=== PATIENT | female | born 1945 | race Caucasian/White ===

== ENCOUNTER 2019-12-12 07:17 | Outpatient (CLI) | payer MEDICARE, SELFPAY ==
[2019-12-12 07:49] LABS: Add Urine Microscopic? NO; Appearance Urine Clear (Clear); Bilirubin Urine Negative (Negative); Blood Urine Negative (Negative); Color Urine Yellow (Yellow); Glucose Urine UA Negative (Negative); Ketones Urine Negative (Negative); Leukocyte Esterase Ur Negative (Negative); Nitrate Urine Negative (Negative); Protein Urine Negative (Negative); Specific Grav Ur 1.025 (1.010-1.020); Urobilinogen Urine 0.2 mg/dL (0.2-1.0); pH Urine 5.5 (5.0-8.0)
[2019-12-12 08:17] LABS: Hemoglobin A1C 6.3 % (<5.7)
[2019-12-12 08:55] LABS: Alanine Aminotransferase 38 U/L (14-59); Albumin Level 3.9 g/dL (3.4-5.0); Alkaline Phosphatase 62 U/L (46-116); Anion Gap 12.6 mmol/L (7-16); Aspartate Amino Transferase 19 U/L (15-37); Bilirubin,Total 0.2 mg/dL (0.00-1.00); Blood Urea Nitrogen 13 mg/dL (7-18); Calcium 9.2 mg/dL (8.5-10.1); Carbon Dioxide 29 mmol/L (21-32); Chloride 102 mmol/L (98-108); Cholesterol 171 mg/dL (0-200); Creatine Kinase 65 U/L (26-192); Estimated Glomerular Filt Rate 52; Glucose 111 mg/dL (70-99); HDL Direct 54 mg/dL (40-60); LDL Cholesterol Calculated 92 mg/dL (<130); Osmolality Calculated 289 mOsm/kg (285-295); Potassium 4.6 mmol/L (3.5-5.1); Sodium 139 mmol/L (136-145); Total Protein 6.9 g/dL (6.4-8.2); Triglycerides 123 mg/dL (0-150)
== END 2019-12-12 07:18 | disposition home or self-care (01) ==
PROVIDERS: PCP Internal Medicine; Visit Provider Internal Medicine
DX: R73.01 Impaired fasting glucose (principal); E78.2 Mixed hyperlipidemia
CPT/HCPCS: 36415; 80053; 80061; 81003; 82550; 83036

== ENCOUNTER 2020-01-10 12:35 | Outpatient (CLI) | payer MEDICARE, SELFPAY ==
--- NOTE | ~2020-01-10 | MM_ITS ---
EXAMINATION: MM screening ruchi BI w jax HISTORY: Screening mammogram TECHNIQUE: Craniocaudal and mediolateral oblique 3-D tomosynthesis images were obtained and synthetic 2-D images were generated. CAD analysis was submitted and interpreted. COMPARISON: 07/28/2018, 04/13/2017, 04/01/2016 bilateral digital screening mammogram examinations BREAST PARENCHYMAL COMPOSITION: The breasts are heterogeneously dense, which may obscure small masses . FINDINGS: There is an approximately 8 mm asymmetric opacity in the lower outer left breast; diagnosti c left mammogram and left breast ultrasound examination are recommended. Otherwise there is no evidence of suspicious mass, calcification, or architectural distortion to sugg est malignancy in either breast. There has been no other suspicious interval change. Occasional benig n calcifications. IMPRESSION: 1. Lower outer quadrant left breast mammographic asymmetry 2. Diagnostic left mammogram and left breast ultrasound examination are recommended. BI-RADS Category 0: Incomplete: Needs additional imaging evaluation. Reviewed, dictated and finalized at location A. IMPRESSION: 1. Lower outer quadrant left breast mammographic asymmetry 2. Diagnostic left mammogram and left breast ultrasound examination are recomme nded. BI-RADS Category 0: Incomplete: Needs additional imaging evaluation.
== END 2020-01-10 12:36 | disposition home or self-care (01) ==
LOC: CHSIMG 12:36
PROVIDERS: PCP Internal Medicine; Visit Provider Internal Medicine
DX: Z12.31 Encounter for screening mammogram for malignant neoplasm of breast (principal)
CPT/HCPCS: 77063; 77067

== ENCOUNTER 2020-01-17 08:43 | Outpatient (CLI) | payer MEDICARE, SELFPAY ==
--- NOTE | ~2020-01-17 | MMUS_ITS ---
EXAMINATION: MM diagnostic ruchi LT w jax, US breast LT complete HISTORY: Follow-up possible left breast mass TECHNIQUE: Additional 3-D tomosynthesis images of the left breast were performed and synthetic 2-D im ages were generated. CAD analysis was submitted and interpreted. High resolution left breast ultrasou nd was performed. COMPARISON: Comparison to multiple prior studies sequentially, with oldest reviewed study dated 03/12. BREAST PARENCHYMAL COMPOSITION: The breasts are heterogenously dense, which may obscure small masses FINDINGS: MAMMOGRAPHIC FINDINGS: There is a cluster of coarse calcifications in the lower inner quadrant of the left breast. There are no suspicious masses, architectural distortions or clustered calcifications to suggest malignancy. ULTRASOUND: Left breast ultrasound: There are echogenic foci at 7:00, 4 cm from the nipple with dense posterior shadowing, corresponding to the calcifications seen on mammography. At 8:00, 3 cm from the nipple, there is a cluster of cysts , largest measuring 5 mm maximum dimension. At 9:00, 3 cm from the nipple, there is a small hypoechoi c mass measuring 3 mm, likely a complicated cyst. No other masses identified. IMPRESSION: 1. Probable benign findings of the left breast. 2. Recommend 6 month follow-up left breast ultrasound. BI-RADS category 3, probably benign findings. Reviewed, dictated and finalized at location A. IMPRESSION: 1. Probable benign findings of the left breast. 2. Recommend 6 month follow-up left breast ultrasound. BI-RADS category 3, probably benign findings.
== END 2020-01-17 08:44 | disposition home or self-care (01) ==
LOC: CHSIMG 08:45
PROVIDERS: PCP Internal Medicine; Visit Provider Internal Medicine
DX: R92.8 Other abnormal and inconclusive findings on diagnostic imaging of breast (principal)
CPT/HCPCS: 76641; 77061; 77065; G0279

== ENCOUNTER 2020-06-26 08:27 | Outpatient (CLI) | payer MEDICARE, SELFPAY ==
[2020-06-26 08:40] LABS: Add Urine Microscopic? YES; Appearance Urine Cloudy (Clear); Bilirubin Urine Negative (Negative); Blood Urine Negative (Negative); Color Urine Yellow (Yellow); Glucose Urine UA Negative (Negative); Ketones Urine Negative (Negative); Leukocyte Esterase Ur Negative (Negative); Nitrate Urine Negative (Negative); Protein Urine Negative (Negative); Specific Grav Ur 1.025 (1.010-1.020); Urobilinogen Urine 0.2 mg/dL (0.2-1.0); pH Urine 5.5 (5.0-8.0)
[2020-06-26 08:53] LABS: Bacteria Urine Trace /hpf; RBC Urine 0-2 /hpf (0-2); Squamous Epithelial Cell Urine Many /hpf (Few); WBC Urine 0-3 /hpf (0-3)
[2020-06-26 08:55] LABS: Hemoglobin A1C 6.3 % (<5.7)
[2020-06-26 09:45] LABS: Alanine Aminotransferase 38 U/L (14-59); Albumin Level 4.1 g/dL (3.4-5.0); Alkaline Phosphatase 73 U/L (46-116); Anion Gap 7 mmol/L (8-16); Aspartate Amino Transferase 17 U/L (15-37); Bilirubin,Total 0.3 mg/dL (0.00-1.00); Blood Urea Nitrogen 14 mg/dL (7-18); Calcium 9.3 mg/dL (8.5-10.1); Carbon Dioxide 29 mmol/L (21-32); Chloride 102 mmol/L (98-108); Cholesterol 189 mg/dL (0-200); Creatine Kinase 88 U/L (26-192); Estimated Glomerular Filt Rate 47; Glucose 125 mg/dL (70-99); HDL Direct 61 mg/dL (40-60); LDL Cholesterol Calculated 92 mg/dL (<130); Osmolality Calculated 287 mOsm/kg (285-295); Potassium 4.4 mmol/L (3.5-5.1); Sodium 138 mmol/L (136-145); Total Protein 7.3 g/dL (6.4-8.2); Triglycerides 179 mg/dL (0-150)
[2020-06-28 11:53] LABS: Vitamin D 25 Hydroxy 33 ng/mL (30-100)
== END 2020-06-26 08:28 | disposition home or self-care (01) ==
LOC: CHSLAB 08:28
PROVIDERS: PCP Internal Medicine; Visit Provider Internal Medicine
DX: R73.01 Impaired fasting glucose (principal); I10 Essential (primary) hypertension; E78.2 Mixed hyperlipidemia; M81.0 Age-related osteoporosis without current pathological fracture
CPT/HCPCS: 36415; 80053; 80061; 81001; 82306; 82550; 83036

== ENCOUNTER 2020-07-19 08:35 | Outpatient (CLI) | payer MEDICARE, SELFPAY ==
--- NOTE | ~2020-07-19 | US_ITS ---
EXAMINATION: US breast LT limited HISTORY: Six-month follow-up for probably benign left breast masses TECHNIQUE: Limited left breast ultrasound was performed. COMPARISON: 01/17/2020 FINDINGS: There is a stable 2 mm hypoechoic mass at the 9:00 location 3 cm from the nipple. Hypoechoi c masses at the 8:00 location 3 cm from the nipple are stable to decreased in size. Again noted is a calcification at the 7:00 location 4 cm from the nipple. Adjacent hypoechoic parallel masses at the 7 :00 location 2 cm from the nipple measure up to 4 mm. None demonstrate additional suspicious sonograp hic features. IMPRESSION: Probably benign left breast masses. Follow-up left breast ultrasound six months is recommended. BI-RADS category 3, probably benign findings. Reviewed, dictated and finalized at location A. RENCE INVESTIGATOR
== END 2020-07-19 08:36 | disposition home or self-care (01) ==
LOC: CHSIMG 08:37
PROVIDERS: PCP Internal Medicine; Visit Provider Internal Medicine
DX: R92.8 Other abnormal and inconclusive findings on diagnostic imaging of breast (principal); N63.20 Unspecified lump in the left breast, unspecified quadrant
CPT/HCPCS: 76642

== ENCOUNTER 2021-01-17 08:17 | Outpatient (CLI) | payer MEDICARE, SELFPAY ==
[2021-01-17 08:33] LABS: Add Urine Microscopic? NO; Appearance Urine Clear (Clear); Bilirubin Urine Negative (Negative); Blood Urine Negative (Negative); Color Urine Yellow (Yellow); Glucose Urine UA Negative (Negative); Ketones Urine Negative (Negative); Leukocyte Esterase Ur Negative (Negative); Nitrate Urine Negative (Negative); Protein Urine Negative (Negative); Specific Grav Ur 1.025 (1.010-1.020); Urobilinogen Urine 0.2 mg/dL (0.2-1.0)
[2021-01-17 08:43] LABS: Hemoglobin A1C 6.5 % (<5.7)
[2021-01-17 09:06] LABS: Alanine Aminotransferase 36 U/L (14-59); Albumin Level 3.8 g/dL (3.4-5.0); Alkaline Phosphatase 73 U/L (46-116); Anion Gap 11 mmol/L (8-16); Aspartate Amino Transferase 15 U/L (15-37); Bilirubin,Total 0.2 mg/dL (0.00-1.00); Blood Urea Nitrogen 11 mg/dL (7-18); Calcium 9.1 mg/dL (8.5-10.1); Carbon Dioxide 27 mmol/L (21-32); Chloride 104 mmol/L (98-108); Estimated Glomerular Filt Rate 56; Glucose 112 mg/dL (70-99); Osmolality Calculated 294 mOsm/kg (285-295); Potassium 4.5 mmol/L (3.5-5.1); Sodium 142 mmol/L (136-145)
== END 2021-01-17 08:18 | disposition home or self-care (01) ==
LOC: CHSLAB 08:18
PROVIDERS: PCP Internal Medicine; Visit Provider Internal Medicine
DX: E11.9 Type 2 diabetes mellitus without complications (principal)
CPT/HCPCS: 36415; 80053; 81003; 83036

== ENCOUNTER 2021-02-06 13:22 | Outpatient (CLI) | payer MEDICARE, SELFPAY ==
[2021-02-06 15:23] LABS: SARS-CoV-2 RNA PCR Negative (Negative)
== END 2021-02-06 13:23 | disposition home or self-care (01) ==
LOC: CHSLAB 13:24
PROVIDERS: PCP Internal Medicine; Visit Provider Internal Medicine
DX: J06.9 Acute upper respiratory infection, unspecified (principal); Z20.822 Contact with and (suspected) exposure to COVID-19
CPT/HCPCS: C9803; U0003; U0005

== ENCOUNTER 2021-06-05 12:17 | Outpatient (CLI) | payer MEDICARE, SELFPAY ==
[2021-06-05 13:09] LABS: Basophils Absolute Auto 0.02 K/mm3 (0.00-0.10); Basophils Percent Auto 0.3 % (0.0-1.0); Eosinophils Absolute Auto 0.18 K/mm3 (0.02-0.50); Eosinophils Percent Auto 2.3 % (1.0-6.0); Hematocrit 42.2 % (35.0-42.0); Hemoglobin 13.6 g/dL (11.7-13.8); Immature Granulocyte Absolute 0.04 K/mm3 (0.00-0.00); Immature Granulocyte Percent A 0.5 % (0.0-0.0); Lymphocytes Absolute Auto 2.07 K/mm3 (1.10-4.50); Lymphocytes Percent Auto 25.9 % (18.0-42.0); Mean Corpuscular HGB Conc 32.2 g/dL (32.0-36.0); Mean Corpuscular Hemoglobin 31.4 pg (27.0-31.0); Mean Corpuscular Volume 97.5 fL (78.0-102.0); Mean Platelet Volume 9.6 fl (9.2-11.8); Monocytes Percent Auto 8.8 % (2.0-11.0); Neutrophils Percent Auto 62.2 % (50.0-70.0); Platelet Count Result 255 K/mm3 (150-420); Red Blood Count 4.33 M/mm3 (4.20-5.40); Red Cell Distribution Width 13.2 % (11.6-14.4)
[2021-06-05 13:45] LABS: Influenza A QL RT-PCR Negative (Negative); Influenza B QL RT-PCR Negative (Negative); SARS-CoV-2 RNA PCR Positive (Negative)
[2021-06-05 13:53] LABS: Rheumatoid Factor Screen Negative (Negative)
== END 2021-06-05 12:18 | disposition home or self-care (01) ==
LOC: CHSLAB 12:19
PROVIDERS: PCP Internal Medicine; Visit Provider Internal Medicine
DX: U07.1 COVID-19 (principal)
CPT/HCPCS: 36415; 85025; 86430; 87502; C9803; U0003; U0005

== ENCOUNTER 2021-09-02 09:26 | Outpatient (CLI) | payer MEDICARE, SELFPAY ==
[2021-09-02 09:38] LABS: Hematocrit 44.7 % (35.0-42.0); Hemoglobin 14.5 g/dL (11.7-13.8); Mean Corpuscular HGB Conc 32.4 g/dL (32.0-36.0); Mean Corpuscular Hemoglobin 31.5 pg (27.0-31.0); Mean Corpuscular Volume 97.2 fL (78.0-102.0); Mean Platelet Volume 9.4 fl (9.2-11.8); Platelet Count Result 335 K/mm3 (150-420); Red Cell Distribution Width 13.1 % (11.6-14.4); White Blood Count 7.9 K/mm3 (4.8-10.8)
[2021-09-02 09:48] LABS: Add Urine Microscopic? NO; Appearance Urine Clear (Clear); Bilirubin Urine Negative (Negative); Blood Urine Negative (Negative); Color Urine Yellow (Yellow); Glucose Urine UA Negative (Negative); Ketones Urine Negative (Negative); Leukocyte Esterase Ur Negative LEU/UL (Negative); Nitrate Urine Negative (Negative); Protein Urine Negative (Negative); Specific Grav Ur 1.025 (1.010-1.020); Urobilinogen Urine 0.2 mg/dL (0.2-1.0)
[2021-09-02 09:49] LABS: Hemoglobin A1C 6.3 % (<5.7)
[2021-09-02 09:59] LABS: Band Neutrophils Percent 0 % (0-6); Eosinophils Absolute Manual 0.47 K/mm3 (0.02-0.5); Eosinophils Percent Manual 6 % (1-6); Lymphocytes Absolute Manual 2.44 K/mm3 (1.1-4.5); Lymphocytes Percent Manual 31 % (18-44); Monocytes Absolute Manual 0.86 K/mm3 (0.1-0.90); Monocytes Percent Manual 11 % (3-9); Myelocytes Percent 1 %; Neutrophils Absolute Manual 4.02 K/mm3 (1.7-7.2); Neutrophils Percent Manual 51 % (46-73); Platelet Estimate Adequate (Adequate); Total Cells Counted 100
[2021-09-02 10:21] LABS: Alanine Aminotransferase 49 U/L (14-59); Albumin Level 4.1 g/dL (3.4-5.0); Alkaline Phosphatase 74 U/L (46-116); Anion Gap 8 mmol/L (8-16); Aspartate Amino Transferase 23 U/L (15-37); Bilirubin,Total 0.3 mg/dL (0.00-1.00); Blood Urea Nitrogen 12 mg/dL (7-18); Calcium 9.6 mg/dL (8.5-10.1); Carbon Dioxide 30 mmol/L (21-32); Chloride 101 mmol/L (98-108); Cholesterol 195 mg/dL (0-200); Creatine Kinase 53 U/L (26-192); Estimated Glomerular Filt Rate 55; Glucose 145 mg/dL (70-99); HDL Direct 54 mg/dL (40-60); LDL Cholesterol Calculated 93 mg/dL (<130); Osmolality Calculated 290 mOsm/kg (285-295); Potassium 4.5 mmol/L (3.5-5.1); Sodium 139 mmol/L (136-145); Total Protein 7.2 g/dL (6.4-8.2); Triglycerides 240 mg/dL (0-150)
== END 2021-09-02 09:27 | disposition home or self-care (01) ==
LOC: CHSLAB 09:29
PROVIDERS: PCP Internal Medicine; Visit Provider Internal Medicine
DX: E78.2 Mixed hyperlipidemia (principal); E11.9 Type 2 diabetes mellitus without complications
CPT/HCPCS: 36415; 80053; 80061; 81003; 82550; 83036; 85025

== ENCOUNTER 2021-11-27 12:25 | Outpatient (CLI) | payer MEDICARE, SELFPAY ==
--- NOTE | ~2021-11-27 | DEXA_ITS ---
Bone Density Report Name: MICHEL ELLIOTT Age: 75 Sex: Female Ethnicity: White Date of : 1945 Indication: postmenopausal; screening for osteoporosis; height loss; Referring Provider: Godwin Ku Study: Bone densitometry was performed. Exam Date: November 27, 2021 Accession number: [id number] Bone Density: Region BMD T-score Z-score Classification AP Spine(L1-L4) 1.374 3.0 5.3 Normal Femoral Neck (Left) 0.697 -1.4 0.6 Osteopenia Total Hip (Left) 0.955 0.1 1.8 Normal Femoral Neck (Right) 0.806 -0.4 1.6 Normal Total Hip (Right) 1.013 0.6 2.3 Normal Femoral Neck Mean 0.751 -0.9 1.1 Normal Total Hip Mean 0.984 0.3 2.1 Normal World Health Organization criteria for BMD impression classify patients as: Normal (T-score at or above -1.0), Osteopenia (T-score between -1.0 and -2.5), or Osteoporosis (T-score at or below -2.5). 10-year Fracture Risk(1): Major Osteoporotic Fracture 10.0% Hip Fracture 1.6% Reported Risk Factors: [place] (), Neck BMD=0.697, BMI=31.1 (1) FRAX(R) Version 3.08. Fracture probability calculated for an untreated patient. Fracture probability may be lower if the patient has received treatment. Clinical Information Provided by Patient: Patient maximum height was 64 No regular weight bearing exercise Drinks caffeinated beverages Onset of menses at age 12 Number of children 3 Impression: The patient has low bone mass, based on the Left Femoral Neck T-score. Discussion: BONE DENSITY IS LOW AT ONE OR MORE SKELETAL SITES. This patient's lowest T-score is low at one or more skeletal sites. It meets the World Health Organization's (WHO) criteria for ?low bone mass? (T-score between -1.0 and -2.5). The patient's 10-year risk of fracture as calculated by FRAX is less than the threshold where pharmacological therapy is recommended by the National Osteoporosis Foundation (NOF). However, all treatment decisions require clinical judgment and consideration of individual patient factors, including patient preferences, comorbidities, previous drug use, risk factors not captured in the FRAX model (e.g., frailty, falls, vitamin D deficiency, increased bone turnover, interval significant decline in bone density) and possible under or overestimation of fracture risk by FRAX. The patient should follow a healthful lifestyle (good nutrition with adequate calcium and vitamin D, and appropriate weight-bearing exercise). Follow-Up: Consider repeating this study in 2 to 3 years to reassess this patient's status, or sooner if there is some new clinical indication. Reported by: Dr. Ish Lombardo on 11/27/2021 12:47:00 PM. Reviewed, dictated and finalized at location AJanet FOWLER
== END 2021-11-27 12:26 | disposition home or self-care (01) ==
LOC: CHSIMG 12:27
PROVIDERS: PCP Internal Medicine; Visit Provider Internal Medicine
DX: M81.0 Age-related osteoporosis without current pathological fracture (principal)
CPT/HCPCS: 77080

== ENCOUNTER 2022-02-05 09:43 | Outpatient (CLI) | payer MEDICARE, SELFPAY ==
--- NOTE | ~2022-02-05 | MM_ITS ---
EXAMINATION: MM screening ruchi BI w jax HISTORY: Screening TECHNIQUE: Craniocaudal and mediolateral oblique 3-D tomosynthesis images were obtained and synthetic 2-D images were generated. CAD analysis was submitted and interpreted. COMPARISON: Comparison to multiple prior studies sequentially, with oldest reviewed study dated 03/17. BREAST PARENCHYMAL COMPOSITION: The breasts are heterogeneously dense, which may obscure small masses FINDINGS: There are developing clusters of indeterminate calcifications in the upper inner quadrant o f the right breast and lower outer quadrant of the left breast. There are no new masses or architectu ral distortion. IMPRESSION: 1. Developing clustered indeterminate bilateral breast calcifications. 2. Magnification views are recommended. BI-RADS Category 0: Incomplete: Needs additional imaging evaluation. Reviewed, dictated and finalized at location A.
== END 2022-02-05 09:44 | disposition home or self-care (01) ==
LOC: CHSIMG 09:45
PROVIDERS: PCP Internal Medicine; Visit Provider Internal Medicine
DX: Z12.31 Encounter for screening mammogram for malignant neoplasm of breast (principal)
CPT/HCPCS: 77063; 77067

== ENCOUNTER 2022-02-13 09:01 | Outpatient (CLI) | payer MEDICARE, SELFPAY ==
--- NOTE | ~2022-02-13 | MM_ITS ---
EXAMINATION: MM diagnostic ruchi BI w jax HISTORY: Bilateral breast calcifications on screening mammogram TECHNIQUE: Additional views of the breasts were performed. CAD analysis was submitted and interprete d. COMPARISON: 02/05/2022, 01/17/2020, 01/10/2020 FINDINGS: Left breast: There are grouped calcifications in the posterior third of the outer breast at the 3:00 location approximately 8 cm from the nipple which appear to be round in morphology. Right breast: There are grouped lucent centered calcifications of the right breast, consistent with b enign finding. IMPRESSION: 1. Probably benign left breast calcifications. 2. Recommend 6 month follow-up left diagnostic mammogram. BI-RADS category 3, probably benign findings. Reviewed, dictated and finalized at location A.
== END 2022-02-13 09:02 | disposition home or self-care (01) ==
LOC: CHSIMG 09:02
PROVIDERS: PCP Internal Medicine; Visit Provider Internal Medicine
DX: R92.8 Other abnormal and inconclusive findings on diagnostic imaging of breast (principal)
CPT/HCPCS: 77062; 77066; G0279

== ENCOUNTER 2022-04-16 09:07 | Outpatient (CLI) | payer MEDICARE, SELFPAY ==
[2022-04-16 09:20] LABS: Appearance Urine Clear (Clear); Basophils Absolute Auto 0.04 K/mm3 (0.00-0.10); Basophils Percent Auto 0.5 % (0.0-1.0); Bilirubin Urine Negative (Negative); Blood Urine Negative (Negative); Eosinophils Absolute Auto 0.69 K/mm3 (0.02-0.50); Eosinophils Percent Auto 7.9 % (1.0-6.0); Glucose Urine UA Negative (Negative); Hematocrit 42.6 % (35.0-42.0); Hemoglobin 13.6 g/dL (11.7-13.8); Immature Granulocyte Absolute 0.04 K/mm3 (0.00-0.00); Immature Granulocyte Percent A 0.5 % (0.0-0.0); Ketones Urine Negative (Negative); Leukocyte Esterase Ur Negative LEU/UL (Negative); Lymphocytes Absolute Auto 2.65 K/mm3 (1.10-4.50); Lymphocytes Percent Auto 30.3 % (18.0-42.0); Mean Corpuscular HGB Conc 31.9 g/dL (32.0-36.0); Mean Corpuscular Hemoglobin 30.8 pg (27.0-31.0); Mean Corpuscular Volume 96.4 fL (78.0-102.0); Mean Platelet Volume 9.1 fl (9.2-11.8); Monocytes Absolute Auto 0.63 K/mm3 (0.10-0.90); Monocytes Percent Auto 7.2 % (2.0-11.0); Neutrophils Absolute Auto 4.7 K/mm3 (1.7-7.2); Neutrophils Percent Auto 53.6 % (50.0-70.0); Nitrate Urine Negative (Negative); Platelet Count Result 345 K/mm3 (150-420); Protein Urine Negative (Negative); Red Blood Count 4.42 M/mm3 (4.20-5.40); Red Cell Distribution Width 12.3 % (11.6-14.4); Specific Grav Ur 1.015 (1.010-1.020); Urobilinogen Urine 0.2 mg/dL (0.2-1.0); White Blood Count 8.8 K/mm3 (4.8-10.8)
[2022-04-16 09:24] LABS: Add Urine Microscopic? NO; Color Urine Light Yellow (Yellow)
[2022-04-16 09:37] LABS: Hemoglobin A1C 6.3 % (<5.7)
[2022-04-16 09:59] LABS: Alanine Aminotransferase 32 U/L (14-59); Albumin Level 3.9 g/dL (3.4-5.0); Alkaline Phosphatase 75 U/L (46-116); Anion Gap 4 mmol/L (8-16); Aspartate Amino Transferase 15 U/L (15-37); Bilirubin,Total 0.2 mg/dL (0.00-1.00); Blood Urea Nitrogen 15 mg/dL (7-18); Calcium 9.4 mg/dL (8.5-10.1); Carbon Dioxide 32 mmol/L (21-32); Chloride 105 mmol/L (98-108); Cholesterol 207 mg/dL (0-200); Creatine Kinase 48 U/L (26-192); Estimated Glomerular Filt Rate 46; Glucose 129 mg/dL (70-99); HDL Direct 47 mg/dL (40-60); LDL Cholesterol Calculated 104 mg/dL (<130); Osmolality Calculated 294 mOsm/kg (285-295); Potassium 4.6 mmol/L (3.5-5.1); Sodium 141 mmol/L (136-145); Total Protein 7.1 g/dL (6.4-8.2); Triglycerides 281 mg/dL (0-150)
== END 2022-04-16 09:08 | disposition home or self-care (01) ==
LOC: CHSLAB 09:09
PROVIDERS: PCP Internal Medicine; Visit Provider Internal Medicine
DX: E78.2 Mixed hyperlipidemia (principal); E11.9 Type 2 diabetes mellitus without complications; N39.0 Urinary tract infection, site not specified
CPT/HCPCS: 36415; 80053; 80061; 81003; 82550; 83036; 85025

== ENCOUNTER 2022-04-28 15:32 | Outpatient (CLI) | payer MEDICARE, SELFPAY ==
--- NOTE | ~2022-04-28 | XR_ITS ---
XR chest 2V DATE: 04/28/2022 15:54 INDICATION: Substernal chest pain for over 10 months TECHNIQUE: PA and lateral views COMPARISON: 10/06/2016 two-view chest FINDINGS: Normal heart size. No hilar or mediastinal enlargement. No pulmonary infiltrate or consolid ation, pleural effusion or pulmonary vascular congestion or pneumothorax is detected. Prominent osteoarthritic change at the glenohumeral joints. Minimal dextro scoliosis of the thoracic spine. IMPRESSION: No active cardiopulmonary disease Reviewed, dictated and finalized at location A. OMER ENGAGEMENT REPRESENTATIVE
== END 2022-04-28 15:33 | disposition home or self-care (01) ==
LOC: CHSIMG 15:34
PROVIDERS: PCP Internal Medicine; Visit Provider Internal Medicine
DX: R07.9 Chest pain, unspecified (principal)
CPT/HCPCS: 71046

== ENCOUNTER 2022-05-01 10:13 | Outpatient (CLI) | payer MEDICARE, SELFPAY ==
--- NOTE | ~2022-05-01 | CT_ITS ---
EXAMINATION: CT diagnostic chest wo con DATE: 05/01/2022 10:29 INDICATION: Chest pain TECHNIQUE: Computed tomography (CT) of the chest was performed without intravenous contrast. The dose -length product (DLP) was 256.42 mGy-cm. Automated exposure control and iterative reconstruction tech MobilePeak[employer] were employed. COMPARISON: 01/16/2017 FINDINGS: The lungs are free of focal airspace opacities. There is mild dependent atelectasis. No ple ural effusion or pneumothorax. No pathologically enlarged thoracic lymph nodes are identified. The he art size is normal. There is calcified coronary artery atherosclerosis. There is mild thoracic spondy losis and severe lower cervical spondylosis. The liver is diffusely low in attenuation when compared with the spleen, consistent with hepatic steatosis. IMPRESSION: 1. No CT correlate for the patient's symptoms. Reviewed, dictated and finalized at location F. N RESOURCES PROJECT COORDINATOR
== END 2022-05-01 10:14 | disposition home or self-care (01) ==
LOC: CHSIMG 10:15
PROVIDERS: PCP Internal Medicine; Visit Provider Internal Medicine
DX: R07.9 Chest pain, unspecified (principal)
CPT/HCPCS: 71250

== ENCOUNTER 2022-06-13 10:56 | Outpatient (CLI) | payer MEDICARE, SELFPAY ==
[2022-06-13 11:34] LABS: Anion Gap 6 mmol/L (8-16); Blood Urea Nitrogen 14 mg/dL (7-18); Calcium 9.4 mg/dL (8.5-10.1); Carbon Dioxide 32 mmol/L (21-32); Chloride 104 mmol/L (98-108); Estimated Glomerular Filt Rate 52; Glucose 72 mg/dL (70-99); Osmolality Calculated 293 mOsm/kg (285-295); Sodium 142 mmol/L (136-145)
== END 2022-06-13 10:57 | disposition home or self-care (01) ==
LOC: CHSLAB 11:00
PROVIDERS: PCP Internal Medicine; Visit Provider Internal Medicine
DX: I10 Essential (primary) hypertension (principal)
CPT/HCPCS: 36415; 80048

== ENCOUNTER 2022-08-14 09:05 | Outpatient (CLI) | payer MEDICARE, SELFPAY ==
--- NOTE | ~2022-08-14 | MMUS_ITS ---
EXAMINATION: MM diagnostic ruchi LT w jax, US breast LT limited HISTORY: Six-month follow-up of probably benign left breast calcifications TECHNIQUE: ML, MLO and CC 3-D tomosynthesis images of the left breast were performed and synthetic 2- D images were generated. CAD analysis was submitted and interpreted. Magnification views of the left breast in ML, MLO and CC projections. High resolution upper inner and lower inner quadrant left breas t ultrasound was performed. COMPARISON: 02/13/2022 diagnostic bilateral mammogram 02/01/2022 bilateral screening mammogram BREAST PARENCHYMAL COMPOSITION: The breasts are heterogeneously dense, which may obscure small masses . FINDINGS: MAMMOGRAPHIC FINDINGS: There is a cluster of fine granular appearing indeterminate microcalcifications within an approximate ly 5 x 8 mm area in the upper inner quadrant of the left breast. There are multiple scattered characteristically benign calcifications scattered elsewhere in the left breast. ULTRASOUND: No suspicious mass or shadowing is evident. There is shadowing from a prominent benign calcification at 6:00 IMPRESSION: 1. Indeterminate cluster of grouped microcalcifications in upper inner quadrant of left breast 2. Stereotactic biopsy of upper inner quadrant indeterminate grouped microcalcifications recommended. Dr. Wilder telephoned the report and stereotactic biopsy recommendation on August 14, 2022 1050 hours to [facility]. Ku. BI-RADS category 4, suspicious findings. Reviewed, dictated and finalized at location A. RAL SUPPLY TECH IMPRESSION: 1. Indeterminate cluster of grouped microcalcifications in upper inner quadrant of left breast 2. Stereotactic biopsy of upper inner quadrant indeterminate grouped microcalci fications recommended. Dr. Wilder telephoned the report and stereotactic biopsy recommendation on August 14, 2022 1050 hours to [facility] for Dr. Ku. BI-RADS category 4, suspicious findings. IMPRESSION: 1. Indeterminate cluster of grouped microcalcifications in upper inner quadrant of left breast 2. Stereotactic biopsy of upper inner quadrant indeterminate grouped microcalci fications recommended. Dr. Wilder telephoned the report and stereotactic biopsy recommendation on August 14, 2022 1050 [address] to [facility] for [facility] Ku. BI-RADS category 4, suspicious findings.
== END 2022-08-14 09:06 | disposition home or self-care (01) ==
PROVIDERS: PCP Internal Medicine; Visit Provider Internal Medicine
DX: R92.8 Other abnormal and inconclusive findings on diagnostic imaging of breast (principal)
CPT/HCPCS: 76642; 77061; 77065; G0279

== ENCOUNTER 2022-10-16 09:37 | Outpatient (CLI) | payer MEDICARE, SELFPAY ==
[2022-10-16 09:49] LABS: Hematocrit 41.8 % (35.0-42.0); Hemoglobin 13.7 g/dL (11.7-13.8); Mean Corpuscular HGB Conc 32.8 g/dL (32.0-36.0); Mean Corpuscular Hemoglobin 31.6 pg (27.0-31.0); Mean Corpuscular Volume 96.3 fL (78.0-102.0); Mean Platelet Volume 9.4 fl (9.2-11.8); Platelet Count Result 336 K/mm3 (150-420); Red Blood Count 4.34 M/mm3 (4.20-5.40); Red Cell Distribution Width 12.6 % (11.6-14.4)
[2022-10-16 09:54] LABS: Appearance Urine Clear (Clear); Bilirubin Urine Negative (Negative); Blood Urine Negative (Negative); Color Urine Yellow (Yellow); Glucose Urine UA Negative (Negative); Ketones Urine Negative (Negative); Leukocyte Esterase Ur Trace LEU/UL (Negative); Nitrate Urine Negative (Negative); Protein Urine Negative (Negative); Specific Grav Ur >= 1.030 (1.010-1.020); Urobilinogen Urine 0.2 mg/dL (0.2-1.0); pH Urine 5.5 (5.0-8.0)
[2022-10-16 09:58] LABS: Add Urine Microscopic? NO; RBC Urine None seen /hpf (0-2); WBC Urine 0-3 /hpf (0-3)
[2022-10-16 09:59] LABS: Bacteria Urine Trace /hpf; Squamous Epithelial Cell Urine Moderate /hpf (Few)
[2022-10-16 10:12] LABS: Band Neutrophils Percent 0 % (0-6); Eosinophils Absolute Manual 0.56 K/mm3 (0.02-0.5); Eosinophils Percent Manual 7 % (1-6); Lymphocytes Percent Manual 35 % (18-44); Monocytes Percent Manual 10 % (3-9); Neutrophils Absolute Manual 3.84 K/mm3 (1.7-7.2); Neutrophils Percent Manual 48 % (46-73); Platelet Estimate Adequate (Adequate); Total Cells Counted 100
[2022-10-16 10:28] LABS: Alanine Aminotransferase 41 U/L (14-59); Albumin Level 3.8 g/dL (3.4-5.0); Alkaline Phosphatase 91 U/L (46-116); Anion Gap 8 mmol/L (8-16); Aspartate Amino Transferase 23 U/L (15-37); Bilirubin,Total 0.3 mg/dL (0.00-1.00); Blood Urea Nitrogen 13 mg/dL (7-18); Calcium 9.2 mg/dL (8.5-10.1); Carbon Dioxide 30 mmol/L (21-32); Chloride 105 mmol/L (98-108); Cholesterol 128 mg/dL (0-200); Creatine Kinase 62 U/L (26-192); Estimated Glomerular Filt Rate 52; Glucose 124 mg/dL (70-99); HDL Direct 48 mg/dL (40-60); LDL Cholesterol Calculated 57 mg/dL (<130); Osmolality Calculated 297 mOsm/kg (285-295); Potassium 4.7 mmol/L (3.5-5.1); Sodium 143 mmol/L (136-145); Total Protein 6.9 g/dL (6.4-8.2); Triglycerides 117 mg/dL (0-150)
== END 2022-10-16 09:38 | disposition home or self-care (01) ==
LOC: CHSLAB 09:39
PROVIDERS: PCP Internal Medicine; Visit Provider Internal Medicine
DX: E78.2 Mixed hyperlipidemia (principal); E11.9 Type 2 diabetes mellitus without complications; N39.0 Urinary tract infection, site not specified
CPT/HCPCS: 36415; 80053; 80061; 81003; 82550; 83036; 85025

== ENCOUNTER 2023-05-27 11:05 | Outpatient (CLI) | payer MEDICARE, SELFPAY ==
--- NOTE | ~2023-05-27 | XR_ITS ---
EXAMINATION: XR chest 2V DATE: 05/27/2023 11:46 INDICATION: Cough. Chest pain. TECHNIQUE: Frontal and lateral views of the chest were obtained. COMPARISON: Chest 2 views 04/28/2022 FINDINGS: There is no pneumonia, pleural effusion, or pneumothorax. The heart size is normal. IMPRESSION: 1. No acute cardiopulmonary disease. Reviewed, dictated and finalized at location A. NCT PSYCHOLOGY FACULTY MEMBER
[2023-05-27 11:34] LABS: Basophils Absolute Auto 0.04 K/mm3 (0.00-0.10); Basophils Percent Auto 0.6 % (0.0-1.0); Eosinophils Absolute Auto 0.25 K/mm3 (0.02-0.50); Eosinophils Percent Auto 3.7 % (1.0-6.0); Hematocrit 41.8 % (35.0-42.0); Hemoglobin 13.3 g/dL (11.7-13.8); Immature Granulocyte Absolute 0.02 K/mm3 (0.00-0.00); Immature Granulocyte Percent A 0.3 % (0.0-0.0); Lymphocytes Absolute Auto 1.29 K/mm3 (1.10-4.50); Lymphocytes Percent Auto 19.3 % (18.0-42.0); Mean Corpuscular HGB Conc 31.8 g/dL (32.0-36.0); Mean Corpuscular Hemoglobin 30.9 pg (27.0-31.0); Mean Platelet Volume 9.8 fl (9.2-11.8); Monocytes Absolute Auto 0.51 K/mm3 (0.10-0.90); Monocytes Percent Auto 7.6 % (2.0-11.0); Neutrophils Absolute Auto 4.6 K/mm3 (1.7-7.2); Neutrophils Percent Auto 68.5 % (50.0-70.0); Platelet Count Result 345 K/mm3 (150-420); Red Blood Count 4.31 M/mm3 (4.20-5.40); Red Cell Distribution Width 12.8 % (11.6-14.4); White Blood Count 6.7 K/mm3 (4.8-10.8)
[2023-05-27 11:49] LABS: Alanine Aminotransferase 49 U/L (14-59); Albumin Level 3.7 g/dL (3.4-5.0); Alkaline Phosphatase 76 U/L (46-116); Anion Gap 3 mmol/L (8-16); Aspartate Amino Transferase 18 U/L (15-37); Bilirubin,Total 0.3 mg/dL (0.00-1.00); Blood Urea Nitrogen 16 mg/dL (7-18); Calcium 9.1 mg/dL (8.5-10.1); Carbon Dioxide 33 mmol/L (21-32); Chloride 102 mmol/L (98-108); Estimated Glomerular Filt Rate 50; Glucose 151 mg/dL (70-99); Osmolality Calculated 290 mOsm/kg (285-295); Sodium 138 mmol/L (136-145); Total Protein 7.1 g/dL (6.4-8.2)
[2023-05-27 12:04] LABS: Strep Group A RT-PCR NOT DETECTED (Negative)
[2023-05-27 12:10] LABS: SARS-CoV-2 RNA PCR Negative (Negative)
[2023-05-27 12:11] LABS: Influenza A QL RT-PCR Negative (Negative); Influenza B QL RT-PCR Negative (Negative); RSV RNA, RT-PCR Negative (Negative)
== END 2023-05-27 11:06 | disposition home or self-care (01) ==
LOC: CHSLAB 11:08
PROVIDERS: PCP Internal Medicine; Visit Provider Internal Medicine
DX: R05.9 Cough, unspecified (principal); R07.9 Chest pain, unspecified
CPT/HCPCS: 36415; 71046; 80053; 85025; 87637; 87651

== ENCOUNTER 2023-10-22 15:17 | Outpatient (CLI) | payer MEDICARE, SELFPAY ==
--- NOTE | ~2023-10-22 | XR_ITS ---
EXAMINATION: XR hand LT min 3V DATE: 10/22/2023 15:37 INDICATION: Left hand pain TECHNIQUE: Posteroanterior, oblique and lateral views of the left hand were obtained. COMPARISON: None. FINDINGS: There is widening of the scapholunate interval with increased scapholunate angle consistent with scap holunate ligament insufficiency and secondary dorsal intercalated segment instability (DISI). Bone al ignment is otherwise normal. No fracture. Polyarticular osteoarthritis, severe at the distal radiouln ar and first carpal metacarpal joints, moderate severity at the wrist, third-fifth distal interphalan geal and fourth and fifth proximal interphalangeal joints and mild at the midcarpal, triscaphe, each of the metacarpophalangeal and remaining interphalangeal joints. IMPRESSION: 1. 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 2. 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 Reviewed, dictated and finalized at location A. IMPRESSION: 1. Polyarticular osteoarthritis, severe at the distal radioulnar and first carp al metacarpal joints and otherwise mild to moderate. 2. 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
[2023-10-22 15:36] LABS: Appearance Urine Clear (Clear); Basophils Absolute Auto 0.06 K/mm3 (0.00-0.10); Basophils Percent Auto 0.7 % (0.0-1.0); Bilirubin Urine Negative (Negative); Blood Urine Negative (Negative); Color Urine Light Yellow (Yellow); Eosinophils Absolute Auto 0.42 K/mm3 (0.02-0.50); Eosinophils Percent Auto 4.7 % (1.0-6.0); Glucose Urine UA Negative (Negative); Hematocrit 44.2 % (35.0-42.0); Hemoglobin 14.3 g/dL (11.7-13.8); Immature Granulocyte Absolute 0.02 K/mm3 (0.00-0.00); Immature Granulocyte Percent A 0.2 % (0.0-0.0); Ketones Urine Negative (Negative); Leukocyte Esterase Ur 1+ LEU/UL (Negative); Lymphocytes Percent Auto 38.1 % (18.0-42.0); Mean Corpuscular HGB Conc 32.4 g/dL (32-36); Mean Corpuscular Hemoglobin 30.2 pg (27.0-31.0); Mean Corpuscular Volume 93.4 fL (78.0-102.0); Mean Platelet Volume 9.3 fl (9.2-11.8); Monocytes Percent Auto 6.7 % (2.0-11.0); Neutrophils Absolute Auto 4.43 K/mm3 (1.70-7.20); Neutrophils Percent Auto 49.6 % (50.0-70.0); Nitrate Urine Negative (Negative); Platelet Count Result 430 K/mm3 (150-420); Protein Urine Negative (Negative); Red Blood Count 4.73 M/mm3 (4.20-5.40); Red Cell Distribution Width 12.8 % (11.6-14.4); Specific Grav Ur 1.015 (1.010-1.020); Urobilinogen Urine 0.2 mg/dL (0.2-1.0); White Blood Count 8.9 K/mm3 (4.8-10.8)
[2023-10-22 15:40] LABS: Add Urine Microscopic? YES; Bacteria Urine Trace /hpf; RBC Urine None seen /hpf (0-2); Squamous Epithelial Cell Urine Few /hpf (Few)
[2023-10-22 16:18] LABS: Anion Gap 10 mmol/L (4-12); Blood Urea Nitrogen 19 mg/dL (7-18); Calcium 9.3 mg/dL (8.5-10.1); Carbon Dioxide 29 mmol/L (21-32); Chloride 102 mmol/L (98-108); Estimated Glomerular Filt Rate 52; Glucose 91 mg/dL (70-99); Osmolality Calculated 294 mOsm/kg (285-295); Potassium 4.3 mmol/L (3.5-5.1); Sodium 141 mmol/L (136-145)
== END 2023-10-22 15:18 | disposition home or self-care (01) ==
LOC: CHSLAB 15:19
PROVIDERS: PCP Internal Medicine; Visit Provider Internal Medicine
DX: I10 Essential (primary) hypertension (principal); M79.642 Pain in left hand; R42 Dizziness and giddiness; R82.90 Unspecified abnormal findings in urine; M19.042 Primary osteoarthritis, left hand; M25.342 Other instability, left hand
CPT/HCPCS: 36415; 73130; 80048; 81001; 85025; 87086; 87088

== ENCOUNTER 2023-11-25 12:19 | Outpatient (CLI) | payer MEDICARE, SELFPAY ==
[2023-11-25 13:05] LABS: Anion Gap 10 mmol/L (4-12); Blood Urea Nitrogen 17 mg/dL (7-18); Calcium 9.2 mg/dL (8.5-10.1); Carbon Dioxide 30 mmol/L (21-32); Chloride 101 mmol/L (98-108); Estimated Glomerular Filt Rate 47; Glucose 93 mg/dL (70-99); Osmolality Calculated 293 mOsm/kg (285-295); Potassium 4.4 mmol/L (3.5-5.1); Sodium 141 mmol/L (136-145)
== END 2023-11-25 12:20 | disposition home or self-care (01) ==
PROVIDERS: PCP Internal Medicine; Visit Provider Internal Medicine
DX: E86.0 Dehydration (principal)
CPT/HCPCS: 36415; 80048

== ENCOUNTER 2023-12-12 09:04 | Outpatient (CLI) | payer MEDICARE, SELFPAY ==
[2023-12-12 12:56] LABS: Hematocrit 43.3 % (35.0-42.0); Hemoglobin 13.8 g/dL (11.7-13.8); Mean Corpuscular HGB Conc 31.9 g/dL (32-36); Mean Corpuscular Hemoglobin 30.3 pg (27.0-31.0); Mean Platelet Volume 9.8 fl (9.2-11.8); Platelet Count Result 379 K/mm3 (150-420); Red Blood Count 4.56 M/mm3 (4.20-5.40); Red Cell Distribution Width 12.6 % (11.6-14.4)
[2023-12-12 13:19] LABS: Alanine Aminotransferase 29 U/L (14-59); Albumin Level 3.8 g/dL (3.4-5.0); Alkaline Phosphatase 68 U/L (46-116); Anion Gap 9 mmol/L (4-12); Aspartate Amino Transferase 18 U/L (15-37); Bilirubin,Total 0.4 mg/dL (0.00-1.00); Blood Urea Nitrogen 19 mg/dL (7-18); Calcium 9.4 mg/dL (8.5-10.1); Carbon Dioxide 29 mmol/L (21-32); Chloride 101 mmol/L (98-108); Cholesterol 146 mg/dL (0-200); Estimated Glomerular Filt Rate > 60; Free T3 2.17 pg/mL (2.18-3.98); Free T4 Free Thyroxine 0.82 ng/dL (0.76-1.46); Glucose 93 mg/dL (70-99); HDL Direct 65 mg/dL (40-60); LDL Cholesterol Calculated 56 mg/dL (<130); Osmolality Calculated 290 mOsm/kg (285-295); Potassium 4.1 mmol/L (3.5-5.1); Sodium 139 mmol/L (136-145); Thyroid Stimulating Hormone 2.38 uIU/mL (0.36-3.74); Total Protein 7.4 g/dL (6.4-8.2); Triglycerides 123 mg/dL (0-150)
[2023-12-12 13:22] LABS: Hemoglobin A1C 5.3 % (<5.7)
[2023-12-12 18:53] LABS: Bilirubin Urine Negative (Negative); Blood Urine Negative (Negative); Color Urine Yellow (Yellow); Glucose Urine UA Negative (Negative); Ketones Urine Negative (Negative); Leukocyte Esterase Ur 1+ (Negative); Nitrate Urine Negative (Negative); Protein Urine Negative (Negative); Urobilinogen Urine 0.2 mg/dL (0.2-1.0); pH Urine 6.5 (5.0-8.0)
[2023-12-12 19:11] LABS: Add Urine Microscopic? YES; Appearance Urine Sl Cloudy (Clear); Calcium Oxalate Crystals Urine Many /hpf; Renal Epithelial Cells Urine Few /hpf; Squamous Epithelial Cell Urine Moderate /hpf (Few)
== END 2023-12-12 09:05 | disposition home or self-care (01) ==
LOC: CHSLAB 09:06
PROVIDERS: PCP Internal Medicine; Visit Provider Internal Medicine
DX: E78.2 Mixed hyperlipidemia (principal); I10 Essential (primary) hypertension; E11.9 Type 2 diabetes mellitus without complications; R60.0 Localized edema; M79.642 Pain in left hand
CPT/HCPCS: 36415; 80053; 80061; 81001; 83036; 84439; 84443; 84481; 85027

== ENCOUNTER 2023-12-14 13:32 | Outpatient (CLI) | payer MEDICARE, SELFPAY ==
--- NOTE | 2023-12-14 13:49 | ECG_ITS ---
Test Date: 2023-12-14 13:57:07 Measurements Intervals [place] Rate: 56 P: 78 AR: 168 QRS: 13 QRSD: 119 T: 31 QT: 473 QTc: 459 Interpretive Statements SINUS BRADYCARDIA INTRAVENTRICULAR CONDUCTION DELAY VOLTAGE CRITERIA FOR LVH CANNOT R/O SEPTAL INFARCT, AGE INDETERMINATE CONSIDER HIGH LATERAL INFARCT, AGE INDETERMINATE ABNORMAL ECG No previous ECG available for comparison Electronically Signed On 12-14-2023 15:22:04 CDT by Fantasma Calabrese D.O.
== END 2023-12-14 13:33 | disposition home or self-care (01) ==
LOC: CHSCARD 13:34
PROVIDERS: PCP Internal Medicine; Visit Provider Internal Medicine
DX: Z01.818 Encounter for other preprocedural examination (principal); I10 Essential (primary) hypertension; R00.1 Bradycardia, unspecified; R94.31 Abnormal electrocardiogram [ECG] [EKG]
CPT/HCPCS: 93005

== ENCOUNTER 2024-02-22 17:40 | Outpatient (RCR) | payer MEDICARE, SELFPAY ==
--- NOTE | 2024-02-22 17:32 | BUOTOPEVAL ---
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 The patient previously demonstrated no pain in L wrist and hand and WNL AROM and strength with patient independent with all ADLs and IADLs. Due to a fall and surgery, the patient now demonstrates significant pain reporting 8/10 at worst during activities, moderately impaired AROM of thumb and wrist, minimal swelling of L wrist and weakness resulting from surgery and pain, this has affected all of the patient's ADLs requiring assistance for most daily tasks from . The patient scored 86.4% on QuickDASH questionnaire at SOC demonstrating severely impaired UE function. The patient requires skilled OT to address deficits and return to PLOF. Plan of Care Interventions Therapeutic Exercise,Manual Therapy,Neuro Re- education,Therapeutic Activities,Hot Pack/Cold Pack,Electrical Stimulation,Sensory Integrative Techn,Self-Care/Home Management,Prosthetic Training,Ultrasound OT Services Indicated Yes Treatment Frequency and 3x/week for 10 visits. Duration These treatments will address the objective and functional deficits as defined above. The patient will be advanced safely and appropriately in order for the patient to progress towards his/her prior level of function. Additional exercises will be introduced and as well as a comprehensive home exercise program upon discharge, if needed, ?to ensure carryover of functional gains achieved in the clinic. This treatment plan has been reviewed and agreement upon by the patient.
--- NOTE | 2024-03-16 12:59 | BUOTOPEVAL ---
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 ICD-10 Condition Codes (OT) M79.642 Other ICD-10 Condition Codes ( Unilateral primary osteoarthritis of first OT) carpometacarpal joint, left hand Reported Pain Level Pain Score 1: Self Report Pain Score 0: Self Report Pain Score 0: Self Report Pain Score 4: Self Report Pain Score 5: Self Report Pain Score 0: Self Report Pain Score 4: Self Report Pain Score 0: Self Report Pain Score 0: Self Report Pain Score 4: Self Report Assessment OT Clinical Summary The patient demonstrates significant progress in thumb AROM, 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 The patient continues to demonstrate difficulty with swelling, bench machine operator/pinch strength, and wrist strength that is needed to be addressed to return to PLOF. The patient was prepared to be discharged this date without meeting goals for pain and strength which can impair her function for daily life activities. Therapist educated to patient to continue with therapy to ensure highest level of independence and function of affected hand. She was agreeable to take a two week break due to being very busy with other appointments, to complete UE HEP and also rest her hand when needed and return to determine if she has any increased function of L hand. Therapist educated patient on theraputty exercises and to discontinue exercises if they cause her pain. To assess in 2 weeks to determine further treatment plan. Plan of Care Interventions Therapeutic Exercise,Manual Therapy,Neuro Re- education,Therapeutic Activities,Hot Pack/Cold Pack,Electrical Stimulation,Self-Care/Home Management,Prosthetic Training,Ultrasound OT Services Indicated Yes Treatment Frequency and 1-2x/week for 10 visits Duration These treatments will address the objective and functional deficits as defined above. The patient will be advanced safely and appropriately in order for the patient to progress towards his/her prior level of function. Additional exercises will be introduced and as well as a comprehensive home exercise program upon discharge, if needed, ?to ensure carryover of functional gains achieved in the clinic. This treatment plan has been reviewed and agreement upon by the patient.
--- NOTE | 2024-03-16 12:59 | OPREHPOC ---
Outpatient Therapy Plan of Care This is a Multidisciplinary Plan of Care that may contain components documented by all disciplines (PT, OT, and ST.) OT Problem 1 OT Problem #1 Knowledge Deficit OT Goal 1 Goal / Goal Update The patient will demonstrate increased knowledge of UE HEP in order to achieve function of arm needed to dress self without pain. PROGRESSING; CONTINUE 03/15 Target Visit 20 OT Problem 2 OT Problem #2 Impaired Range of Motion OT Goal 1 Goal / Goal Update The patient will demonstrate increased AROM of L thumb by achieving >3 degrees of motion from SOC in order to increase dexterity of hand and use of wrist during grooming tasks. GOAL MET; DISCONTINUE 03/15 Target Visit 10 Progress Met OT Goal 2 Goal / Goal Update L AROM: L thumb flexion MP: 50 degrees Thumb flexion IP: 52 degrees L wrist flexion: 40 degrees with 1/10 pain L wrist extension: 48 degrees OT Problem 3 OT Problem #3 Edema OT Goal 1 Goal / Goal Update The patient will demonstrate decreased edema of L wrist and hand by demonstrating circumference of L wrist at 15 cm to improve ROM and function of wrist. PROGRESSING; CONTINUE 03/15 Target Visit 10 Progress Partially Met OT Goal 2 Goal / Goal Update 16 cm at L UE OT Problem 4 OT Problem #4 Impaired Strength OT Goal 1 Goal / Goal Update The patient will demonstrate increased strength by performing >30 lb lead athlete strength and >4 lbs lateral pinch of L UE in order to lead athlete and hold items for homemaking. GOAL PROGRESSING; CONTINUE Target Visit 20 Progress Partially Met OT Goal 2 Goal / Goal Update L UE: 21 lbs at 4/10 pain R UE: 55 lbs L UE lateral pinch: 0 lb R UE lateral pinch: 8 lbs OT Problem 5 OT Problem #5 Pain OT Goal 1 Goal / Goal Update The patient will demonstrate decreased pain of L hand during activities reporting <3/10 at worst during ADLs in order to achieve pain free lifestyle. GOAL PROGRESSING; CONTINUE Target Visit 20 Progress Partially Met OT Goal 2 Goal / Goal Update 10/22
--- NOTE | 2024-04-06 14:46 | BUOTOPEVAL ---
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 ICD-10 Condition Codes (OT) M79.642 Other ICD-10 Condition Codes ( Unilateral primary osteoarthritis of first OT) carpometacarpal joint, left hand Reported Pain Level Pain Score 6: Self Report Pain Score 1: Self Report Pain Score 0: Self Report Pain Score 0: Self Report Pain Score 4: Self Report Pain Score 5: Self Report Pain Score 0: Self Report Pain Score 4: Self Report Pain Score 0: Self Report Pain Score 0: Self Report Pain Score 4: Self Report Assessment OT Clinical Summary The patient demonstrates significant pain in L hand at thumb that continues to get worse since break in POC, 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 The patient has been wrapping her wrist at night to help with pain, does not want to be on increased pain medication, and wants to figure out what to do for her wrist and thumb for pain. Therapist educated patient that resting UE and using a brace during daily activities could benefit her in order to rest the inflamed area. Therapist educated patient on use of thumb stabilizer, prefabricated brace to use during heavy activities and at night to decrease pain. Therapist educated patient to rest arm as much as possible and to maintain PROM and massage of thumb and hand to maintain joint mobility. The patient requires skilled OT to address pain using ultrasound modality consistently to determine if pain can be decreased with ultrasound and manual techniques. OT to engage patient in manual techniques, AROM and ultrasound for 8 visits to determine improvement in symptoms. Therapist educated patient to consult with her primary physician if she continues to have severe pain in wrist and hand. Plan of Care Interventions Therapeutic Exercise,Manual Therapy,Neuro Re- education,Therapeutic Activities,Hot Pack/Cold Pack,Electrical Stimulation,Sensory Integrative Techn,Self-Care/Home Management,Prosthetic Training,Ultrasound OT Services Indicated Yes Treatment Frequency and 2x/week for 8 visits. Duration These treatments will address the objective and functional deficits as defined above. The patient will be advanced safely and appropriately in order for the patient to progress towards his/her prior level of function. Additional exercises will be introduced and as well as a comprehensive home exercise program upon discharge, if needed, ?to ensure carryover of functional gains achieved in the clinic. This treatment plan has been reviewed and agreement upon by the patient.
--- NOTE | 2024-04-06 14:46 | OPREHPOC ---
Outpatient Therapy Plan of Care This is a Multidisciplinary Plan of Care that may contain components documented by all disciplines (PT, OT, and ST.) OT Problem 1 OT Problem #1 Knowledge Deficit OT Goal 1 Goal / Goal Update The patient will demonstrate increased knowledge of UE HEP in order to achieve function of arm needed to dress self without pain. PROGRESSING; CONTINUE 03/15 GOAL MET; DISCONTINUE 04/05 Target Visit 20 Progress Met OT Problem 2 OT Problem #2 Impaired Range of Motion OT Goal 1 Goal / Goal Update The patient will demonstrate increased AROM of L thumb by achieving >3 degrees of motion from SOC in order to increase dexterity of hand and use of wrist during grooming tasks. GOAL MET; DISCONTINUE 03/15 Target Visit 10 Progress Met OT Goal 2 Goal / Goal Update L AROM: L thumb flexion MP: 50 degrees Thumb flexion IP: 52 degrees L wrist flexion: 40 degrees with 06/24 pain L wrist extension: 48 degrees OT Problem 3 OT Problem #3 Edema OT Goal 1 Goal / Goal Update The patient will demonstrate decreased edema of L wrist and hand by demonstrating circumference of L wrist at 15 cm to improve ROM and function of wrist. PROGRESSING; CONTINUE 03/15 CONTINUE; 04/05/2024 Target Visit 10 Progress Partially Met OT Goal 2 Goal / Goal Update 16 cm at L UE 16.5 cm at L UE 04/05/2024 OT Problem 4 OT Problem #4 Impaired Strength OT Goal 1 Goal / Goal Update The patient will demonstrate increased strength by performing >30 lb heavy duty custodian strength and >4 lbs lateral pinch of L UE in order to heavy duty custodian and hold items for homemaking. GOAL PROGRESSING; CONTINUE Target Visit 20 Progress Partially Met OT Goal 2 Goal / Goal Update L UE: 4 lbs at sharp shooting pain 11/22 pain R UE: 55 lbs L UE lateral pinch: 0 lb R UE lateral pinch: 8 lbs 04/05/2024 OT Problem 5 OT Problem #5 Pain OT Goal 1 Goal / Goal Update The patient will demonstrate decreased pain of L hand during activities reporting <3/10 at worst during ADLs in order to achieve pain free lifestyle. GOAL PROGRESSING; CONTINUE Target Visit 20 Progress Partially Met OT Goal 2 Goal / Goal Update 6/10 during 01/22 after doing things with that hand
== END 2024-05-22 23:59 | disposition home or self-care (01) ==
LOC: CHSOT 17:40
DX: M18.12 Unilateral primary osteoarthritis of first carpometacarpal joint, left hand (principal)
CPT/HCPCS: 97035; 97110; 97140; 97166; 97168; 97530

== ENCOUNTER 2024-06-09 15:11 | Outpatient (CLI) | payer MEDICARE, SELFPAY ==
--- NOTE | ~2024-06-09 | XR_ITS ---
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 RESULT: Lines, tubes, and devices: None. Lungs and pleura: Clear. Cardiomediastinal silhouette: Stable. Other: No acute osseous or upper abdominal finding. IMPRESSION: No acute cardiopulmonary process. Reviewed, dictated and finalized at location K. MOTIVE PROFESSIONAL
[2024-06-09 15:26] LABS: Basophils Absolute Auto 0.03 K/mm3 (0.00-0.10); Basophils Percent Auto 0.3 % (0.0-1.0); Eosinophils Absolute Auto 0.46 K/mm3 (0.02-0.50); Eosinophils Percent Auto 3.9 % (1.0-6.0); Hematocrit 43.2 % (35.0-42.0); Hemoglobin 14.3 g/dL (11.7-13.8); Immature Granulocyte Absolute 0.18 K/mm3 (0.00-0.00); Immature Granulocyte Percent A 1.5 % (0.0-0.0); Lymphocytes Absolute Auto 2.74 K/mm3 (1.10-4.50); Lymphocytes Percent Auto 22.9 % (18.0-42.0); Mean Corpuscular HGB Conc 33.1 g/dL (32-36); Mean Corpuscular Hemoglobin 30.6 pg (27.0-31.0); Mean Corpuscular Volume 92.3 fL (78.0-102.0); Mean Platelet Volume 8.9 fl (9.2-11.8); Monocytes Absolute Auto 1.17 K/mm3 (0.10-0.90); Monocytes Percent Auto 9.8 % (2.0-11.0); Neutrophils Absolute Auto 7.36 K/mm3 (1.70-7.20); Neutrophils Percent Auto 61.6 % (50.0-70.0); Platelet Count Result 393 K/mm3 (150-420); Red Blood Count 4.68 M/mm3 (4.20-5.40); Red Cell Distribution Width 12.5 % (11.6-14.4); White Blood Count 11.9 K/mm3 (4.8-10.8)
[2024-06-09 15:46] LABS: Alanine Aminotransferase 97 U/L (14-59); Albumin Level 3.9 g/dL (3.4-5.0); Alkaline Phosphatase 92 U/L (46-116); Anion Gap 11 mmol/L (4-12); Aspartate Amino Transferase 35 U/L (15-37); Bilirubin,Total 0.3 mg/dL (0.00-1.00); Blood Urea Nitrogen 15 mg/dL (7-18); Calcium 9.2 mg/dL (8.5-10.1); Carbon Dioxide 29 mmol/L (21-32); Chloride 101 mmol/L (98-108); Estimated Glomerular Filt Rate 48; Glucose 98 mg/dL (70-99); Osmolality Calculated 292 mOsm/kg (285-295); Sodium 141 mmol/L (136-145); Total Protein 7.2 g/dL (6.4-8.2)
== END 2024-06-09 15:12 | disposition home or self-care (01) ==
LOC: CHSLAB 15:13
PROVIDERS: PCP Internal Medicine; Visit Provider Internal Medicine
DX: R05.9 Cough, unspecified (principal); R50.9 Fever, unspecified
CPT/HCPCS: 36415; 71046; 80053; 85025

== ENCOUNTER 2024-09-02 09:05 | Outpatient (CLI) | payer MEDICARE, SELFPAY ==
--- NOTE | ~2024-09-02 | MM_ITS ---
EXAMINATION: MM screening ruchi BI w jax HISTORY: Screening TECHNIQUE: Craniocaudal and mediolateral oblique 3-D tomosynthesis images were obtained and synthetic 2-D images were generated. CAD analysis was submitted and interpreted. COMPARISON: Comparison to multiple prior studies sequentially, with oldest reviewed study dated 07/28. BREAST PARENCHYMAL COMPOSITION: Dense: The breasts are heterogeneously dense, which may obscure small masses FINDINGS: Benign bilateral breast calcifications are without significant change. There is no evidence of suspicious mass, calcification, or architectural distortion to suggest malignancy in either breas t. There has been no suspicious interval change. IMPRESSION: 1. No mammographic evidence of malignancy. 2. Recommend routine screening mammography in one year. BI-RADS Category 2: Benign finding(s). Reviewed, dictated and finalized at location B.
[2024-09-02 09:24] LABS: Add Urine Microscopic? YES; Appearance Urine Clear (Clear); Basophils Absolute Auto 0.02 K/mm3 (0.00-0.10); Basophils Percent Auto 0.2 % (0.0-1.0); Bilirubin Urine Negative (Negative); Blood Urine Negative (Negative); Color Urine Yellow (Yellow); Eosinophils Absolute Auto 0.68 K/mm3 (0.02-0.50); Glucose Urine UA Negative (Negative); Hematocrit 42.1 % (35.0-42.0); Hemoglobin 13.3 g/dL (11.7-13.8); Immature Granulocyte Absolute 0.03 K/mm3 (0.00-0.00); Immature Granulocyte Percent A 0.4 % (0.0-0.0); Ketones Urine Negative (Negative); Leukocyte Esterase Ur 2+ (Negative); Lymphocytes Absolute Auto 2.48 K/mm3 (1.10-4.50); Lymphocytes Percent Auto 29.3 % (18.0-42.0); Mean Corpuscular HGB Conc 31.6 g/dL (32-36); Mean Corpuscular Hemoglobin 30.4 pg (27.0-31.0); Mean Corpuscular Volume 96.1 fL (78.0-102.0); Mean Platelet Volume 9.3 fl (9.2-11.8); Monocytes Absolute Auto 0.63 K/mm3 (0.10-0.90); Monocytes Percent Auto 7.4 % (2.0-11.0); Neutrophils Absolute Auto 4.62 K/mm3 (1.70-7.20); Neutrophils Percent Auto 54.7 % (50.0-70.0); Nitrate Urine Negative (Negative); Platelet Count Result 374 K/mm3 (150-420); Protein Urine Negative (Negative); Red Blood Count 4.38 M/mm3 (4.20-5.40); Red Cell Distribution Width 12.8 % (11.6-14.4); Urobilinogen Urine 0.2 mg/dL (0.2-1.0); White Blood Count 8.5 K/mm3 (4.8-10.8)
[2024-09-02 09:30] LABS: Bacteria Urine Trace /hpf; RBC Urine 0-2 /hpf (0-2); Squamous Epithelial Cell Urine Few /hpf (Few)
[2024-09-02 09:33] LABS: Creatinine Urine 117.85 mg/dL (40-278); Microalbumin Urine Random < 13.0 mg/L
[2024-09-02 09:34] LABS: Hemoglobin A1C 5.4 % (<5.7)
--- OUTSIDE RECORDS SUMMARY | 2024-09-02 10:06 | XMS_ITS | Data Portability ---
Author Organization [facility], [address] [place] [address] Neurology ([place]) Address [address] [address] Care Team Providers Care Wood Fuel Pelletizer Name Role Phone TERENCE HODGE Primary Care Provider Assessment Encounter Date Assessment Date Assessment LastModified by Organization Details LastModified Time 03/28/2024 03/28/2024 ASSESSMENT AND PLAN: I think the patient is doing pretty well related to the carpal metacarpal joint arthroplasty. She may have developed some mild De Quervain's tenosynovitis and she does have some irritation of the radial sensory nerve which may have developed after the swelling in the Orthoplast splint. I think this will all continue to improve with time. She is going to continue with the home exercise program. She will be reevaluated in 1 month. If she is still having persistent pain she will have some new x-rays of her left thumb obtained that day. [email or web address] Not available 03/31/2024 10:15:27 05/06/2024 05/06/2024 Chief complaint: Left thumb pain History of present illness: Patient is a 78-year-old female presenting to the clinic for evaluation of left thumb pain. Patient had a left CMC arthroplasty and left carpal tunnel release on 12/23/2023. She has been in therapy for this left thumb for the last few months. Patient reports that her primary told her that she should be using her left thumb is much as possible. She states that earlier this week she put up her Jerome tree and decorate her home for Jerome and then pain started while she was doing these things. She denies any known injury. She has been wearing a brace only at night. She does report she is still having numbness and tingling in her left thumb and index fingers. This numbness and tingling also shoots up towards her elbow. Exam: Patient is in no acute distress and is well-dressed and well-nourished. Patient has appropriate mood and affect. Respirations are nonlabored. Sclera are nonicteric. Patient has a well-healed surgical incision that is without erythema or ecchymosis. Patient is able to make a full fist and is able to flex and extend all other fingers without difficulty. Her lehr attendant strength is weak. Patient has positive Tinel's sign at the left wrist and a negative Tinel's sign at the left elbow. Patient has decreased range of motion of her left wrist. Assessment: Left thumb pain Plan: I do believe the patient is just overworked her thumb over the past week. I advised the patient to stop her physical therapy for the next 2 weeks and wear her brace full-time. She has an appointment scheduled to see Dr. Gardiner in 2 weeks where she will be reevaluated. I did order a left thumb x-ray and a CBC, CRP, and sed rate to check for any possible infection. Patient will follow-up with Dr. Gardiner in 2 weeks and will call with any questions or concerns before that time. aramis Not available 05/06/2024 12:43:33 05/19/2024 05/19/2024 I think the patient is overall doing well after the left thumb CMC arthroplasty. I recommended that she leave the splint off during the day and wear it at night. She should continue with a home exercise program, and she can otherwise increase activities with her left hand and thumb as tolerated. She will be reevaluated in 6 weeks. [email or web address] Not available 05/22/2024 15:42:24 06/30/2024 06/30/2024 ASSESSMENT AND PLAN: The patient is currently doing very well after her left thumb CMC arthroplasty. She can continue a home exercise program as long as she feels it is beneficial to her. She will be reevaluated on an as needed basis only. chris Not available 07/06/2024 06:48:23 07/08/2024 07/08/2024 SUBJECTIVE: The patient presents to discuss facial rejuvenation. The patient s main complaints are that she has jowls and down turning of the mouth. She is also concerned about her eyes and forehead. The patient has had a thread lift 15-20 years ago at [facility] in [place]. She states that at that time the threads were placed, and they were too tight and may have been exposed and had infection. She then went on to have treatment by Dr. Santoyo at [facility] who removed the threads. She has had previous Botox more than 10 years ago but no other facial procedures. The patient is 78. She is healthy but does take insulin for type 2 diabetes. She had colon cancer also treated surgically. Patient history from today's date has been reviewed, signed, and scanned. All updates have been added to the chart. Please refer to this form for review of the past medical history, family history, surgical history, social history, and review of systems. PHYSICAL EXAM: CONST: Alert and oriented. Looks well, no acute distress. HEENT: On examination of the patient s face, the patient has panfacial superficial rhytids and laxity of the skin. She has good position of her hairline, but her brows are slightly low, and she has dermatochalasis of the upper lids bilaterally. She has lower lid laxity as well, volume loss in the worship, good malar definition. She has deep seated nasolabial lines and jowling with moderate marionette lines as well. She has moderate to significant laxity of the skin on the neck but she does not have significant underlying fat and her cervicomental angle is well defined aside from the skin. RESP: Breathing appears normal. No use of accessory muscles. CV: Extremities are warm and well perfused. GI: Abdomen non-distended. MSK: Head: Atraumatic. Normocephalic. No significant edema normal range of motion. SKIN: No jaundice. No rashes or pruritus on exposed areas. PSYCH: Appropriate mood and affect. NEURO: No speech difficulty. Reviewed pertinent diagnostic tests, lab work, and imaging. These were reviewed with the patient. ASSESSMENT/PLAN: I discussed with the patient that she would benefit from a full face and neck lift, and I discussed with her the incisions extending from the temporal around the lobule and into the hairline posteriorly. She would also have submental incision to address the neck and any deep platysmal contents which would be tightened. The patient understands that her previous surgery has to a degree created scar tissue and will make the surgery slightly more difficult. There is a risk of motor and sensory nerve injuries, and we discussed specifically the marginal mandibular, great auricular, and other branches of the facial nerve and animation. She would also benefit from a brow lift as her brow has descended lower and this could then be accompanied with or prevent the need for blepharoplasty. I discussed with her staging the procedures due to length of anesthesia and the amount of downtime that is involved in the surgeries. She is interested in getting a quote on this and then scheduling based on their travel plans, so she will reach back out to us if she would like to proceed. For today, however, I did discuss with her Botox as she was interested in this in her forehead. She does have a low set brow and I discussed with her doing a small amount of Botox. In the frontalis, she had 10 units; in the glabella, she had 20 units in standard fashion and 2 into each of the lateral brow for total units of 34. She will return in 3 months or sooner if she would like to pursue and discuss surgery. [email or web address] Not available 07/12/2024 14:39:13 Plan of Treatment Reminders Order Date Submit Date Provider Last Modified By Organization Details Last Modified Time Details Appointments Establish ed Patient 15.EST 2024 09:30A M Dr. Vero Pereira Not available Not available Not available Lab CBC 2023 [facility], [address] [place] [address], [id number], 05/06/2024 16:06:28 C-reactiv e protein, quantitat papo, serum or plasma 2023 024 [facility], [address] [place] [address], [id number], 05/06/2024 16:00:54 ESR (erythroc yte sedimenta tion rate), blood 2023 024 [facility], [address] [place] [address], [id number], 05/06/2024 15:47:11 Referral None recorded. Procedures None recorded. Surgeries None recorded. Imaging XR, hand, 3 or more view 2023 [facility], [address] [place] [address], [id number], 05/06/2024 13:12:54 Medication Orders hydrocodo ne 5 mg-acetam inophen 325 mg tablet 2023 [id number], [address] [place], [place], [id number], 05/06/2024 12:39:23 Patient TargetsNo targets recorded. Patient InstructionsNo instructions recorded. Reason for Referral None Reported. Results Created Date Observation Date Name Description Value Unit Range Abnormal Flag Note LastModifiedBy Organization Detail LastModifiedTime 05/06/20 24 05/06/2024 ESR (eryt hrocy te sedim entat ion rate) , blood sed rate 10 mm/HR 0 - 30 Not Available [facility] [address] [place] [address], [id number], 05/06/2024 15:47:11 05/06/20 24 05/06/2024 C-jomar ctive prote in, quant itati ve, serum or plasm a CRP Not Available [facility] [address] [place] [address], [id number], 05/06/2024 16:00:54 05/06/20 24 05/06/2024 C-jomar ctive prote in, quant itati ve, serum or plasm a CRP 0.5 mg/dL <0.4-0 .5 Not Available [facility] [address] [place] [address], [id number], 05/06/2024 16:00:54 05/06/20 24 05/06/2024 CBC CBC Not Available [facility] [address] [place] [address], [id number], 05/06/2024 16:06:28 05/06/2005/06/2024 CBC WBC 8.6 K/uL 3.8-11 .2 Not Available [facility] [address] [place] [address], [address], 05/06/2024 16:06:28 05/06/20 24 05/06/2024 CBC RBC 4.42 M/uL 3.92-5 .10 Not Available [facility] [address] [place] [address], [id number], 05/06/2024 16:06:28 05/06/20 24 05/06/2024 CBC HGB 13.7 g/dL 11.8-1 5.3 Not Available [facility] [address] [place] [address], [id number], 05/06/2024 16:06:28 05/06/20 24 05/06/2024 CBC HCT 41.1 % 36.5-4 4.8 Not Available [facility] [address] [place] [address], [id number], 05/06/2024 16:06:28 05/06/20 24 05/06/2024 CBC MCV 93.0 fL 80.0-9 9.0 Not Available [facility] [address] [place] [address], [id number], 05/06/2024 16:06:28 05/06/20 24 05/06/2024 CBC MCH 31.0 pg 25.5-3 3.6 Not Available [facility] [address] [place] [address], [id number], 05/06/2024 16:06:28 05/06/20 24 05/06/2024 CBC MCHC 33.3 g/dL 32.0-3 6.0 Not Available [facility] [address] [place] [address], [id number], 05/06/2024 16:06:28 05/06/20 24 05/06/2024 CBC RDW-SD 43.5 fL 35.1 - 46.3 Not Available [facility] [address] [place] [address], [id number], 05/06/2024 16:06:28 05/06/20 24 05/06/2024 CBC plt 379 K/uL 130-40 0 Not Available [facility] [address] [place] [address], [id number], 05/06/2024 16:06:28 05/06/20 24 05/06/2024 CBC MPV 9.9 fL 9.3-12 .8 Not Available [facility] [address] [place] [address], [address], 05/06/2024 16:06:28 05/06/20 24 05/06/2024 XR, hand, 3 [place] [address] Teleph one [phone] Name: Francesca Bustamante 3Ex am Date: 2023 Age: 78Phys ician: Tonja russell APN, Emily : 1945Ex aminat ion: XR HAND COMPLE TE LEFT EXAM: XR HAND COMPLE TE LEFT HISTOR Y: Left hand pain and swelli ng since December. No injury COMPAR ANGY: 10/22/19 24. FINDIN GS: There is surgic al resect ion of the trapez ium. There is mild-t o-mode rate osteoa rthrit is, worse in the distal radial ulnar joint. There is chroni c wideni ng of the scapho lunate interv al. No osteom yeliti s or fractu re presen t. IMPRES CARLOS: Postsu rgical and degene rative change s. No acute findin gs. Electr onical ly signed in Loving cribe by: TONI LOZOYA MD on: 12:09 PM cc: Page PAGE 1 of [facility] 1 aramis [facility] [address] [place] [address], [id number], 05/06/2024 14:12:28 Result Notes None recorded. Problems Name Problem SNOMED Code Status Onset Date Resolution Date Notes Provider Name and Address Organization Details Recorded Time Pain in left thumb 8275298793368 100 Active 2023 Monica Seals [facility] 4 17:53:29 Postoperati ve pain 727002835 Active 2023 Monica Seals [facility] 4 00:20:02 Disorder of skin and/or subcutaneou s tissue 77948593 Active 2024 Chelsie Saravia [facility] 5 07:16:29 Osteoarthri tis of first carpometaca rpal joint of left hand 5763607708962 03 Active 2023 Lori Montana [facility] 4 08:44:21 Diabetes mellitus 34899233 Active 2023 [facility] 4 15:13:32 Gastroesoph ageal reflux disease 221864027 Active 2023 [facility] 4 15:13:41 Anxiety 14048865 Active 2023 [facility] 4 15:13:54 Insomnia 992573999 Active 2023 [facility] 4 15:14:23 Hyperlipide gabby 78905230 Active 2023 [facility] 4 15:14:58 Essential hypertensio n 23283103 Active 2023 [facility] 4 15:16:04 Chronic depression 797408615 Active 2023 [facility] 4 15:16:55 Carpal tunnel syndrome of left wrist 3724711108776 02 Active 2023 CLARISSE LONDON PA-C [address] [place] [address], [phone], [facility] 4 13:08:21 Pain of left wrist 9504356881909 02 Active 2023 Aspen kaplan, [facility] 4 13:44:50 Problem Notes None recorded. Procedures Surgical History Date Name Laterality Status Provider Name and Address Organization Details Recorded Time 12/23/19 24 [place] Operative Report completed Ankur Gardiner MD [address] [place] [address], [phone], [facility] 12/24/2023 06:08:35 12/23/19 24 [place] Anes PostOp Pain Up Ext Nerve Block completed Deangelo Alaniz MD [address] [place] [address], [phone], [facility] 12/23/2023 13:33:18 12/23/19 24 arthrostomy completed [facility] 02/12/2024 16:28:29 12/23/19 24 Carpal tunnel surgery completed [facility] 02/12/2024 16:28:49 Colonoscopy with biopsy completed Not Available Health Note 11/16/2023 12:02:29 Partial hysterectomy completed Not Available Health Note 11/16/2023 12:02:29 Imaging Results Imaging Date Name Status LastModified by Organiz ation Details LastModified Time 05/06/2024 XR, hand, 3 or more view completed aramis [facility] [address] [place] [address], [id number], 05/06/2024 14:12:28 Procedure Notes None recorded. Medical Equipment None Reported. Allergies Allergen ID Allergen Name Allergen Category Reaction Reaction Severity Criticality Documentation Date Start Date Code Code System Note Provider Name and Address Organization Details Recorded Time 846591 Substance with sulfonami de structure and antibacte rial mechanism of action (substanc e) medicatio n rash Not available Not available 07/13/20232016 38655 9045 SNOMED React ion: Rash; Not Available Not Available Not Available Medications Name Sig Start Date Stop Date Status Note LastModified by Organization Details LastModified Time atorvastatin 40 mg tablet TAKE 1 TABLET BY MOUTH EVERYDAY AT BEDTIME active Not Available Not Available No t Available azithromycin 250 mg tablet TAKE 2 TABLETS BY MOUTH TODAY, THEN TAKE 1 TABLET DAILY FOR 4 DAYS DIRECTED active Not Available Not Available No t Available hydrocodone 5 mg-acetamino phen 325 mg tablet Take 1-2 tablets every 6 hours as needed for pain active Not Available Not Available No t Available ibuprofen 200 mg capsule Take 4 capsules every 8 hours by oral route as needed. 2023 active Not Available Not Available Not Avai lable acetaminophe n 300 mg-codeine 30 mg tablet TAKE 1 TO 2 TABLETS BY MOUTH EVERY 6 HOURS NEEDED FOR PAIN active Not Available Not Available No t Available ciprofloxaci n 250 mg tablet TAKE 1 TABLET BY MOUTH EVERY 12 HOURS active Not Available Not Available No t Available tramadol 50 mg tablet TAKE 1 TO 2 TABLETS BY MOUTH EVERY 6 HOURS NEEDED FOR PAIN active Not Available Not Available No t Available amitriptylin e 50 mg tablet TAKE 1 TABLET BY MOUTH EVERYDAY AT BEDTIME 2024 active Not Available Not Available Not Avai lable alprazolam 0.5 mg tablet TAKE 1 TABLET BY MOUTH THREE TIMES A DAY active Not Available Not Available Not Available trazodone 100 mg tablet 2 TABLET EVERY NIGHT ORAL BEDTIME 90 DAYS active Not Available Not Available No t Available zolpidem 5 mg tablet TAKE 1 TABLET BY MOUTH AT BEDTIME 30 DAYS active Not Available Not Available No t Available furosemide 20 mg tablet TAKE 1 TABLET BY MOUTH EVERY DAY NEEDED active Not Available Not Available No t Available methylpredni solone 4 mg tablets in a dose pack TAKE 6 TABLETS ON DAY 1 DIRECTED ON PACKAGE AND DECREASE BY 1 TAB EACH DAY FOR A TOTAL OF 6 DAYS active Not Available Not Available No t Available escitalopram 20 mg tablet TAKE 1 TABLET BY MOUTH EVERY DAY FOR 90 DAYS active Not Available Not Available No t Available bimatoprost 0.03 % drops with applicator, eyelash base APPLY 1 DROP TO UPPER EYELASH LINE OF EACH EYE EVERY NIGHT. active Not Available Not Available No t Available OneTouch Verio test strips USE TO TEST GLUCOSE TWICE DAILY active Not Available Not Available Not Available OneTouch Verio Flex Meter USE TO TEST GLUCOSE TWICE DAILY active Not Available Not Available Not Available OneTouch Delica Plus Lancet 33 gauge USE TO TEST GLUCOSE TWICE DAILY active Not Available Not Available Not Available Ozempic 1 mg/dose (4 mg/3 mL) subcutaneous pen injector INJECT 1 MG BY SUBCUTANEOU S ROUTE ONCE WEEKLY ON THE SAME DAY OF EACH WEEK active Not Available Not Available No t Available Ozempic 0.25 mg or 0.5 mg (2 mg/3 mL) subcutaneous pen injector INJECT 0.5 MG SUBCUTANEOU SLY ONE TIME PER WEEK ON THE SAME DAY OF EACH WEEK active Not Available Not Available No t Available Vitals Date Recorded Body height Body mass index (BMI) Body weight Provider Name and Address Organization Details Last Updated DateTime 07/08/2024 160.02 cm 27.2 kg/m2 79646.51 g Rubia Peña [facility] 07/08/2024 11:21:21 Social History Question Answer Notes LastModified by [employer] Details LastModified Time Tobacco Smoking Status Never Smoker Rubia Mariana [facility] 07/08/2024 11:21:28 Do You Have An Advance Directive? Yes [email or web address] Information not available 11/16/2023 What Is Your Level Of Alcohol Consumption? None [email or web address] Information not available 11/16/2023 What Is Your Level Of Caffeine Consumption? Occasional [email or web address] Information not available 11/16/2023 What Is Your Code Status? DNR [email or web address] Information not available 11/16/2023 Are You Currently Employed? 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 Less Than 1 Time Per Week [email or web address] Information not available 11/16/2023 Do You Have A Medical Power Of Production Maintenance Technician? No [email or web address] Information not available 11/16/2023 What Was The Date Of Your Most Recent Tobacco Screening? 11/23/2023 [email or web address] Information not available 11/16/2023 What Is Your Relationship Status? [email or web address] Information not available 11/16/2023 Do You Use Any Illicit Or Recreational Drugs? No [email or web address] Information not available 11/16/2023 Sex: Unknown Functional Status Question Answer Note LastModified by Data Maid ion Details LastModified Time What is your exercise level? Occasional [email or web address] Information not available 11/16/2023 Mental Status None recorded. Family History Relationship Description Onset Age of this Age Resolved Age Notes LastModified by Organization Details LastModified Time Mother Arthritis [email or web address] Not available 11/16/2023 12:02:28 Mother Diabetes mellitus [email or web address] Not available 2023 12:02:28 Mother Heart disease [email or web address] Not available 2023 12:02:28 Father Arthritis [email or web address] Not available 11/16/2023 12:02:28 Father Diabetes mellitus [email or web address] Not available 2023 12:02:28 Father Heart disease [email or web address] Not available 2023 12:02:28 Sister Arthritis [email or web address] Not available 11/16/2023 12:02:28 Sister Diabetes mellitus [email or web address] Not available 2023 12:02:28 Maternal Grandfather Arthritis [email or web address] Not available 08/2023 12:02:28 Maternal Grandfather Diabetes mellitus [email or web address] Not available 2023 12:02:28 Maternal Grandfather Hypertensive disorder [email or web address] Not available 2023 12:02:28 Maternal Grandfather Heart disease [email or web address] Not available 2024 12:14:33 Maternal Grandmother Arthritis [email or web address] Not available 08/2023 12:02:28 Maternal Grandmother Heart disease [email or web address] Not available 2023 12:02:28 Maternal Grandmother Diabetes mellitus [email or web address] Not available 2024 12:14:33 Unspecified Relation Hypercholest erolemia [email or web address] Not available 2023 12:02:28 Paternal Grandfather Diabetes mellitus [email or web address] Not available 2024 12:14:33 Paternal Grandmother Diabetes mellitus [email or web address] Not available 2024 12:14:33 Medical History Condition Response Diabetes Y Anxiety Disorder Y Bleeding Disorder N Attention-deficit Hyperactivity Disorder N High Blood Pressure N Arthritis N Hyperlipidemia N Cancer Y Stroke N Thyroid Problems N Asthma N Depression N COPD N Anemia N Seizures N Heart Disease N Fibromyalgia N Osteoporosis N Kidney Disease N Gynecological HistoryNo gynecological history recorded. Obstetrics History GPAL:G 0 P 0 0 0 0 Past Encounters Encounter ID Performer Location Encounter Start Date Encounter Closed Date Diagnosis/Indication Diagnosis SNOMED-CT Code Diagnosis ICD10 Code Diagnosis Note [id number] Ankur Gardiner MD [facility] ([place]) [address] [place] [address] 11/23/2023 09:45:00 11/23/2023 11:15:42 [id number] Owen Alaniz MD [facility] ([place]) [address] [place] [address] 12/23/2023 11:06:58 01/01/2024 11:14:59 [id number] Ankur Gardiner MD [facility] ([place]) [address] [place] [address], [address] [place] [address] 12/23/2023 11:06:59 12/31/2023 08:38:42 Osteoarthritis of first carpometacarpal joint of left hand 1980764399 60261 M18.12 Carpal sweetie belen syndrome of left wrist 0506907202 34277 G56.02 [id number] Ankur Gardiner MD [facility] ([place]) [address] [place] [address], [place] [address] 01/06/2024 12:07:29 01/06/2024 14:34:18 Osteoarthritis of first carpometacarpal joint of left hand 5219650136 41044 M18.12 Follow-up status 4139960 05 Z47.1 History of arthroplasty of finger of left hand 3290278959 435939 Z96.692 Renewal of prescription 851433839 Z76.0 [id number] Ankur Gardiner MD [address] [facility] ([place]) [address] [place] [address],[address] [place] [address] 02/03/2024 12:05:17 02/03/2024 16:36:21 [id number] Michell Jackson, OTR [address] [facility] ([place]) [address] [place] [address],[place] [address] 02/03/2024 12:40:24 02/03/2024 15:37:16 Osteoarthritis of first carpometacarpal joint of left hand 4856428568 82590 M18.12 [id number] Ankur Gardiner MD [address] [facility] ([place]) [address] [place] [address] 02/09/2024 09:14:49 02/09/2024 10:03:22 Osteoarthritis of first carpometacarpal joint of left hand 7074912705 88867 M18.12 Pain in left thumb 98779 53271 352568 M79.645 Postoperative visit 1836 27052 Z48.89 Postoperative pain 93718 9007 G89.18 [id number] Ankur Gardiner MD [address] [facility] ([place]) [address] [place] [address], [place] [address] 03/28/2024 11:32:11 03/28/2024 13:58:07 Pain in left thumb 5638775158 808945 M79.645 History of artificial joint 606190626 Z96.692 [id number] Ankur Gardiner MD [address] [facility] ([place]) [address] [place] [address],[address] [place] [address] 05/06/2024 12:18:22 05/06/2024 13:37:59 Pain in left thumb 5506333260 606782 M79.645 [id number] Ankur Gardiner MD [address] [facility] [place]) [address] [place] [address], [place] [address] 05/19/2024 15:59:09 05/20/2024 18:27:33 Pain in left thumb 9082875712 573976 M79.645 History of artificial joint 703368927 Z96.692 [id number] Ankur Gardiner MD [address] [facility] [place] [address] [place] [id number] 06/30/2024 15:05:59 07/01/2024 18:23:24 History and physical examination, follow-up [id number] Z09 History of artificial joint 486164393 Z96.692 [id number] Vero Pereira MD [facility] [place] [address] [place] [address] 07/08/2024 11:04:12 07/08/2024 17:16:58 Procedure [id number] Z41.1 Disorder o f skin and/or subcutaneous tissue [id number] L98.8 Health Concerns Section Related Observation LastModified by Organization Detai ls LastModified Time None Recorded Concern Status LastModified by Organization Details LastModified Time None Recorded Advance Directives Directive Y: Payers Encounter Date Sequence Insurance Name Policy Number Policy Lentz Covered Member ID Lentz Member ID Guarantor Name 03/28/2024 1 [employer] (MEDICARE REPLACEMENT PPO) [id number] Francesca White Alepra [id number] Lexa Alepra 05/06/2024 1 [employer] (MEDICARE REPLACEMENT PPO) [id number] Francesca White Alepra [id number] Lexa Alepra 05/19/2024 1 [employer] (MEDICARE REPLACEMENT PPO) [id number] Francesca White Alepra [id number] Lexa Alepra 06/30/2024 1 [employer] (MEDICARE REPLACEMENT PPO) [id number] Francesca White Alepra [id number] Lexa Alepra Notes Date Note Type Note Provider Name and Address Organization Details Recorded Time 4 text/html Francesca returns for follow a little over 3 months after left thumb carpal metacarpal joint arthroplasty. She feels the pain in the thumb carpal metacarpal joint area has improved. She did have some issues with her Orthoplast thumb spica splint being too tight when it was first fabricated and this caused some swelling in her thumb, hand and wrist. The splint was adjusted after several days. She has had some persistent pain and tingling in the radial sensory nerve distribution. She still has the feeling of some mild swelling and stiffness in her hand. She has completed therapy and she is continuing to try to do a home exercise program. Ankur Gardiner MD [facility] [place] [address], [phone], [facility] 04/01/2024 05:00:50 4 text/html Francesca Bustamanteis a 78 year oldfemalepresenting for care.Francesca returns for followup after left thumb metacarpal joint arthroplasty 5 months ago. She does feel her pain in general is improved after her surgery. She feels her strength is improving over time. She was very active over the past several weeks and had some increasing pain in her thumb. She was seen by my physician sales and marketing assistant, Clarisse, and she was instructed to wear a splint for 2 weeks except for light activities. She does feel this has helped reduce her discomfort somewhat. Ankur Gardiner MD [address] [place] [address], [phone], [facility] 05/23/2024 07:04:02 5 text/html Francesca returns for follow-up concerning her left thumb. She had left thumb carpometacarpal joint arthroplasty about 6 months ago. She had somewhat of a slow recovery and then during the holiday time when she was doing some increased activities she did have some increased pain in the thumb. She indicates now that she feels that the thumb is doing very well. She is not having any significant pain. She feels her range of motion and strength are good. Francesca Olvera a 78 year oldfemalepresenting for care. Ankur Gardiner MD [address] [place], [address], [facility] 07/06/2024 20:44:03 OBGyn Episode No OBEpisode recorded.
--- OUTSIDE RECORDS SUMMARY | 2024-09-02 10:06 | XMS_ITS | Clinical Summary ---
Author Organization [facility] Address [address] [place] [address] Care Team Providers Care Manager Federal Name Role Phone Godwin Ku MD Primary Care Provider + [phone] Allergies Active Allergy Reactions Criticality Noted Date Comments Sulfa (Sulfonamide Antibiotics) Rash Medium 08/14 Medications ALPRAZolam (XANAX) 0.5 mg tablet TAKE 1 TABLET BY MOUTH THREE TIMES A DAY DIRECTED FOR 30 DAYS 08/14/2020 Active amitriptyline (ELAVIL) 50 mg tablet TAKE 1 TABLET BY MOUTH EVERYDAY AT BEDTIME 06/13/2020 Active ARIPiprazole (ABILIFY) 5 mg tablet 09/07/2020 Active escitalopram (LEXAPRO) 20 mg tablet 09/08/2020 Active furosemide (LASIX) 20 mg tablet TAKE 1/2 TABLET BY MOUTH DAILY NEEDED 08/07/2020 Active metFORMIN XR (GLUCOPHAGE XR) 500 mg 24 hr tablet TAKE 1 TABLET BY MOUTH ONCE DAILY WITH THE EVENING MEAL 07/18/2020 Active prazosin (MINIPRESS) 1 mg capsule 09/08/2020 Active simvastatin (ZOCOR) 20 mg tablet Take 1 tablet (20 mg total) by mouth daily 07/11/2020 Active traZODone (DESYREL) 100 mg tablet 09/07/2020 Active zolpidem (AMBIEN) 5 mg tablet 09/05/2020 Active atorvastatin (LIPITOR) 40 mg tablet Take 1 tablet (40 mg total) by mouth nightly 09/06/2022 Active Active Problems Problem Noted Date Diagnosed Date Rupture of biceps tendon 05/14/2009 Superior glenoid labrum lesion of shoulder 02/20 Surgical History Surgery Date Site/Laterality Comments ROTATOR CUFF REPAIR [id number] COLON SURGERY 06/15/2012 - 06/14/2013 THUMB SURGERY 06/15/1989 - 06/14/1990 RECONSTRUCTION SOFT TISSUE TOE 06/15/1989 - 06/14/1990 BREAST BIOPSY 06/15/1988 - 06/14/1989 Right BREAST BIOPSY 09/22/2022 Left Medical History Medical History Date Comments Depression Type 2 diabetes mellitus (HCC) Arthritis Family History Medical History Relation Name Comments Breast cancer Father's Sister Colon cancer Maternal Grandfather Breast cancer Other maternal neice Breast cancer Sister Uterine cancer Sister Relation Name Status Comments Father's Sister Maternal Grandfather Other maternal neice Sister Social History Tobacco Use Types Packs/Day Years Used Date Smoking Tobacco: Never Personal Safety Answer Date Recorded Getting School Help Needed Not on file 08/28 Comments No Sex and Gender Information Value Date Recorded Sex Assigned at Not on file 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 Gender Identity Not on file Sexual Orientation Not on file Obstetrics History Last Filed Vital Signs Vital Sign Reading Time Taken Comments Blood Pressure - - Pulse - - Temperature - - Respiratory Rate - - Oxygen Saturation - - Inhaled Oxygen Concentration - - Weight 68 kg (149 lb 14.6 oz) 01/24/2021 12:34 P M CDT Height 162.6 cm (5' 4 ) 01/24/2021 12:34 PM CDT Body Mass Index 25.73 01/24/2021 12:34 PM CDT Plan of Treatment Health Maintenance Due Date Last Done Comments Depression Screening 1945 Fall Risk Assessment 1945 Hepatitis C Screening 1945 Osteoporosis Screening-Bone Density Scan 1945 Hepatitis B Screening 12/29/1965 Well Visit 65+ 12/29/2012 Influenza Vaccine (#1) 2024 , 02/13/2019, 02/02/2019, Additional history exists DTaP/Tdap/Td Vaccine (3 - Td or Tdap) 01/08/2030 01/09/2020, 05/06/2011 Pneumococcal vaccine 65+ Completed 019, 02/02/2019, 08/08/2016, Additional history exists Zoster Vaccine Completed 03/11/2019, 07/0 06/2018, 04/11/2013 Breast Cancer Screening-Mammogram Discontinued 024, 01/24/2021 Procedures Procedure Name Priority Date/Time Associated Diagnosis Comments SCREENING MAMMOGRAM BILATERAL W CAMILO Schedule Routine, Read Routine (OP Routine) 09/01/2023 1:52 PM CDT Screening mammogram, encounter for from Last 3 Months or Most Recently Relevant to Health Maintenance Results * Screening Mammogram Bilateral W Camilo (09/01/2023 1:52 PM CDT) Anatomical Region Laterality Modality Breast Bilateral Mammography Narrative 09/02/2023 11:24 AM CDT Mammogram Technique: Bilateral Digital Breast Tomosynthesis, Bilateral C-view 2D Screening mammogram. Views obtained: bilateral craniocaudal and bilateral mediolateral oblique. Computer Aided Detection was performed. Mammogram Findings: The present examination has been compared to prior imaging studies performed at [facility] on 01/24/2021 and 09/18/2022. There are scattered areas of fibroglandular density. There is no suspicious abnormality in either breast. There are no significant changes from the prior study. Impression: Findings in both breasts are benign. Annual screening mammography is recommended. OVERALL FINAL ASSESSMENT: BI-RADS CATEGORY 2: Benign. Procedure Note Kaye Elkins MD - 09/02/2023 Mammogram Technique: Bilateral Digital Breast Tomosynthesis, Bilateral C-view 2D Screening mammogram. Views obtained: bilateral craniocaudal and bilateral mediolateral oblique. Computer Aided Detection was performed. Mammogram Findings: The present examination has been compared to prior imaging studies performed at [facility] on 01/24/2021 and 09/18/2022. There are scattered areas of fibroglandular density. There is no suspicious abnormality in either breast. There are no significant changes from the prior study. Impression: Findings in both breasts are benign. Annual screening mammography is recommended. OVERALL FINAL ASSESSMENT: BI-RADS CATEGORY 2: Benign. us Self Screening Mammogram IMG MAMMO PROCEDURES Fi nal Result from Last 3 Months or Most Recently Relevant to Health Maintenance Insurance [facility] MEDICARE UHC MEDICARE ADVANTAGE [facility] Address: [address] [address] [place] [address] [facility] Care Teams Manager Federal Relationship Specialty Start Date End Date Ku, Rajneesh S., MD [address] [place] [address] PCP - General Internal Medicine 08/01/20
--- OUTSIDE RECORDS SUMMARY | 2024-09-02 10:06 | XMS_ITS | Referral Summary ---
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 There are [...] compared to prior imaging studies performed at [facility] on 01/24/2021 and 09/18/2022. There are [...] Most Recently Relevant to Health Maintenance Insurance [employer] MEDICARE UHC MEDICARE ADVANTAGE [employer] MEDICARE Care Teams Clerical Associate Relationship Specialty Start Date End Date Godwin Ku MD [address] [place] [address] PCP - General Internal Medicine 08/01/20
--- OUTSIDE RECORDS SUMMARY | 2024-09-02 10:06 | XMS_ITS | Encounter Summary ---
Author Organization [facility] Address [address] [place] [address] Care Team Providers Care Water Resources Project Manager Name Role Phone Unavailable Primary Care Provider Unavailabl e Reason for Visit * Diagnostic Imaging (Routine) - Closed Specialty Diagnoses / Procedures Referred By Yolanda mendoza Referred To Contact Diagnoses Abnormal finding on breast imaging Procedures Breast Imaging US Outside Reference Jen Hoover MD PhD [address] [facility] [phone] [place] [address] Phone: tel: fax: Referral ID Status Reason Start Date Expiration Date Visits Re quested Visits Authorized [id number] Closed 08/29/2022 09/28/2023 1 1 Encounter Details Date Type Department Care Team ([facility] st Contact Info) Description 01/17/2020 Hospital Encounter [facility] [address] [place] [address] Social History Tobacco Use Types Packs/Day Years Used Date Smoking Tobacco: Never Personal Safety Answer Date Recorded Getting School Help Needed Not on file 08/28 Comments No Sex and Gender Information Value Date Recorded Sex Assigned at Not on file 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 There will be no report generated by a [facility] Radiologist. Narrative [facility] - 08/29/2022 11:00 AM CDT EXAMINATION: Images For Reference Purposes Only us Jen Hoover MD PhD IMG MAMMO PROCEDURES Final Result [facility] documented in this encounter Visit Diagnoses Not on filedocumented in this encounter
--- OUTSIDE RECORDS SUMMARY | 2024-09-02 10:06 | XMS_ITS | Clinical Summary ---
Author Organization [facility] Address [facility]ly [facility] [place] [address] Care Team Providers Care Technical Maintenance Specialist Name Role Phone Godwin Ku MD Primary Care Provider [phone] Yamil Kee MD Unavailable [phone] Dias [facility]- Unavailable [phone] Allergies Active Allergy Reactions Criticality Noted Date Comments Sulfa Antibiotics Unknown 05/08/2022 Medications ALPRAZolam 0.5 MG tablet Take 1 tablet (0.5 mg total) by mouth nightly as needed for Sleep. Active zolpidem 5 MG tablet Take 1 tablet (5 mg total) by mouth nightly as needed for Sleep. Active amitriptyline (ELAVIL) 50 MG tablet Take 1 tablet (50 mg total) by mouth nightly at bedtime. 03/09/2022 Active traZODone (DESYREL) 100 MG tablet Take 2 tablets (200 mg total) by mouth nightly at bedtime. at bedtime 03/29/2022 Active Blood Glucose Monitoring Suppl (ONETOUCH VERIO FLEX SYSTEM) w/Device Kit USE TO TEST GLUCOSE TWICE DAILY 11/18/2022 Active escitalopram (LEXAPRO) 20 MG tablet Take 1 tablet (20 mg total) by mouth every morning. 12/23/2022 Active ONETOUCH VERIO test strip USE TO TEST GLUCOSE TWICE DAILY 11/18/2022 Active Lancets (ONETOUCH DELICA PLUS [id number]) Misc USE TO TEST GLUCOSE TWICE DAILY 11/18/2022 Active OZEMPIC 1 mg/dose injection (PEN) 01/30/2023 Act papo aspirin EC (ECOTRIN) 81 MG tablet Take 1 tablet (81 mg total) by mouth daily. Active atorvastatin (LIPITOR) 40 MG tablet Take 1 tablet (40 mg total) by mouth nightly at bedtime. 90 tablet 1 05/17/2024 Active Active Problems Problem Noted Date Diagnosed Date Coronary artery calcification seen on CT scan Syncope, unspecified syncope type 11/28/2022 COVID-19 virus infection 06/06/2021 Mixed hyperlipidemia Atypical chest pain SOB (shortness of breath) Controlled type 2 diabetes m ellitus without complication, without long-term current use of insulin ([facility]) Immunizations Name Administration Dates Next Due Fluzone High Dose - >Age 65 (Prefilled Syringe) 02/20/2020 Influenza Adult (Generic) 03/16/2018,,05/28/2016,2014,05/06/2011 Pneumococcal (Pneumovax 23) 08/08/2016, 3 Tdap (Generic) 05/06/2011 Family History Medical History Relation Comments Heart Attack Father CHF Mother Relation Status Comments Father Mother Sister Alive Social History Tobacco Use Types Packs/Day Years Used Date Smoking Tobacco: Former Cigarettes Q uit: 2019 Smokeless Tobacco: Never Tobacco Cessation:Counseling Given: Not Answered Comments No Sex and Gender Information Value Date Recorded Sex Assigned at Not on file 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 Gender Identity Not on file Sexual Orientation Not on file Last Filed Vital Signs Vital Sign Reading Time Taken Comments Blood Pressure 108/66 03/31/2024 2:10 PM CDT Pulse 75 03/31/2024 2:10 PM CDT Temperature 36.6 C (97.8 F) 05/08/2022 8:23 PM HEARING SPECIALIST Respiratory Rate 16 03/31/2024 2:10 PM CDT Oxygen Saturation 96% 03/31/2024 2:10 PM CDT Inhaled Oxygen Concentration - - Weight 69.3 kg (152 lb 12.8 oz) 03/31/2024 2:10 PM CDT Height 158.8 cm (5' 2.5 ) 03/31/2024 2:10 PM CDT Body Mass Index 27.5 03/31/2024 2:10 PM CDT Plan of Treatment Health Maintenance Due Date Last Done Comments Kidney Health Evaluation 1945 Diabetes: Retinopathy Eye Exam 12/29/1965 Hepatitis C 12[birth year]29/1963 Annual Medicare Wellness Visit 12/29/2012 Dexa Scan (General) 12/29/2012 Hemoglobin A1C 12/05/2021 06/06/2021, 08/07/2016 RSV Immunization or 60+ Years (1 - 1-dose 75+ series) 12/29/2022 Lipid Panel 04/16/2023 04/16/2022 COVID-19 Vaccine ( season) 2024 04/09/2021, 08/29/2020, 08/08/2020 Influenza Adult (#1) 2024 01/31/2021, 02/20/2020, 02/13/2019, Additional history exists DTaP, Tdap and Td Vaccines (3 - Td or Tdap) 01/08/2030 01/09/2020, 05/06/2011 Pneumococcal Vaccine: 65+ Years Completed 02/02/2019, 08/08/2016, 04/12/2015, Additional history exists Zoster Vaccines Completed 03/11/2019, 0706/2018, 04/11/2013 Meningococcal B Vaccine Aged Out No l onger eligible based on patient's age to complete this topic Meningococcal Vaccine Aged Out No clarisa jazmine eligible based on patient's age to complete this topic RSV Immunizations Under 20 Months Aged Out No longer eligible based on patient's age to complete this topic Goals Goal Patient Goal Type Associated Problems Recent Progress Patient-Stated? Author Patient will return to prior living situation and remain independent in ADLs upon discharge from hospital General Ayse Valdivia RN Safety Patient/family will have appropriate support at home upon discharge General No Ayse Vidales RN Procedures Procedure Name Priority Date/Time Associated Diagnosis Comments LIPID PANEL Routine 04/16/2022 HEMOGLOBIN, GLYCOSYLATED STAT 06/06/2021 6:10 AM HEARING SPECIALIST from Last 3 Months or Most Recently Relevant to Health Maintenance Results * LIPID PANEL (04/16/2022) CHOLESTEROL 207 HDL 47 TRIGLYCERIDES 281 LDL (CALCULATED) 104 04/16/2022 us Default History Genericprovider LABORATORY Final Result * (ABNORMAL) HEMOGLOBIN, GLYCOSYLATED (06/06/2021 6:10 AM HEARING SPECIALIST) HGB A1C 6.2(H) <5.7 % 06/06/2021 7:45 AM HEARING SPECIALIST [facility] ESTIMATED AVG GLUCOSE 131(H) 74 - 114 MG/DL 06/06/2021 7:45 AM HEARING SPECIALIST [facility] 06/06/2021 6:10 AM HEARING SPECIALIST us [facility] Final Res ult [facility] [address] [place] [address], [id number] from Last 3 Months or Most Recently Relevant to Health Maintenance Insurance Advance Directives * Full Code (Latest Code Status on File) Date Activated Date Inactivated Comments 06/06/2021 3:42 PM 06/10/2021 3:21 PM * Full Code Date Activated Date Inactivated Comments 06/06/2021 12:45 AM 06/06/2021 3:41 PM Care Teams Technical Maintenance Specialist Relationship Specialty Start Date End Date Godwin Ku MD [address] [place] [address] PCP - General INTERNAL MEDICINE 12/09/18 Yamil Kee MD [address] [place] [phone] INTERVENTIONAL CARDIOLOGY 10/01/23 Valery Dias, ANP- [address] [place] [address] Nurse Practitioner NURSE PRACTITIONER ADULT HEALTH 10/01/23
[2024-09-02 10:16] LABS: Alanine Aminotransferase 38 U/L (14-59); Albumin Level 3.7 g/dL (3.4-5.0); Alkaline Phosphatase 101 U/L (46-116); Anion Gap 8 mmol/L (4-12); Aspartate Amino Transferase 18 U/L (15-37); Bilirubin,Total 0.4 mg/dL (0.00-1.00); Blood Urea Nitrogen 14 mg/dL (7-18); Calcium 9.1 mg/dL (8.5-10.1); Carbon Dioxide 27 mmol/L (21-32); Chloride 107 mmol/L (98-108); Cholesterol 125 mg/dL (0-200); Creatine Kinase 45 U/L (26-192); Estimated Glomerular Filt Rate 53; Free T3 1.86 pg/mL (2.18-3.98); Free T4 Free Thyroxine 0.89 ng/dL (0.76-1.46); Glucose 94 mg/dL (70-99); HDL Direct 70 mg/dL (40-60); LDL Cholesterol Calculated 44 mg/dL (<130); Osmolality Calculated 294 mOsm/kg (285-295); Potassium 4.4 mmol/L (3.5-5.1); Sodium 142 mmol/L (136-145); Total Protein 6.9 g/dL (6.4-8.2); Triglycerides 56 mg/dL (0-150)
== END 2024-09-02 09:06 | disposition home or self-care (01) ==
PROVIDERS: PCP Internal Medicine; Visit Provider Internal Medicine
DX: Z12.31 Encounter for screening mammogram for malignant neoplasm of breast (principal); E11.9 Type 2 diabetes mellitus without complications; E78.2 Mixed hyperlipidemia; I25.10 Atherosclerotic heart disease of native coronary artery without angina pectoris; R60.0 Localized edema
CPT/HCPCS: 36415; 77063; 77067; 80053; 80061; 81001; 82043; 82550; 83036; 84439; 84443; 84481; 85025

== ENCOUNTER 2024-09-05 12:03 | Outpatient (CLI) | payer MEDICARE, SELFPAY ==
--- NOTE | ~2024-09-05 | XR_ITS ---
EXAMINATION: XR shoulder LT min 2V DATE: 09/05/2024 12:36 INDICATION: Left shoulder pain. TECHNIQUE: 4 views of left shoulder were obtained. COMPARISON: Left shoulder radiographs 09/26/2014 FINDINGS: Alignment is normal. No fracture. There is severe osteoarthritis of glenohumeral joint. Acr omioclavicular joint is normal. IMPRESSION: 1. Severe glenohumeral joint osteoarthritis. Reviewed, dictated and finalized at location A.
[2024-09-05 12:31] LABS: Add Urine Microscopic? YES; Appearance Urine Clear (Clear); Bilirubin Urine Negative (Negative); Blood Urine Negative (Negative); Color Urine Light Yellow (Yellow); Glucose Urine UA Negative (Negative); Ketones Urine Negative (Negative); Leukocyte Esterase Ur 2+ (Negative); Nitrate Urine Negative (Negative); Protein Urine Negative (Negative); Specific Grav Ur 1.015 (1.010-1.020); Urobilinogen Urine 0.2 mg/dL (0.2-1.0); pH Urine 5.5 (5.0-8.0)
[2024-09-05 12:39] LABS: RBC Urine None seen /hpf (0-2)
[2024-09-05 12:40] LABS: Bacteria Urine Rare /hpf; Squamous Epithelial Cell Urine Few /hpf (Few)
--- OUTSIDE RECORDS SUMMARY | 2024-09-05 13:56 | XMS_ITS | Data Portability ---
Author Organization [facility], [address] [place] [address] [place]rology ([place]) Address [address] [address] Care Team Providers Care Edge Roller Name Role Phone TERENCE HODGE Primary Care [...] extend all other fingers without difficulty. Her manager adobe strength is weak. Patient has positive Tinel's [...] will be reevaluated in 6 weeks. [email or web address] Not available 05/22/2024 15:42:24 06/30/2024 06/30/2024 ASSESSMENT [...] a thread lift 15-20 years ago at [facility] in [place]. She states that at that time the threads were placed, and they were too tight and may have been exposed and had infection. She then went on to have treatment by Dr. Santoyo at [facility] who removed the threads. She has had [...] laxity as well, volume loss in the roman catholic, good malar definition. She has deep seated [...] like to pursue and discuss surgery. [email or web address] Not available 07/12/2024 14:39:13 Plan of Treatment Reminders Order Date Submit Date Provider Last Modified By Organization Details Last Modified Time Details Appointments Establish ed Patient 15.EST 2024 09:30A M Dr. Vero Pereira Not available Not available Not available Lab CBC 2023 [facility], [address] [place] [address], [id number], 05/06/2024 16:06:28 C-reactiv e protein, quantitat papo, serum or plasma 2023 024 [facility], [address] [place] [address], [id number], 05/06/2024 16:00:54 ESR (erythroc yte sedimenta tion rate), blood 2023 024 [facility], [address] [place] [address], [id number], 05/06/2024 15:47:11 Referral None recorded. Procedures None recorded. Surgeries None recorded. Imaging XR, hand, 3 or more view 2023 [facility], [facility], [address] [place] [address], [id number], 05/06/2024 13:12:54 Medication Orders hydrocodo ne 5 mg-acetam inophen 325 mg tablet 2023 [id number], [address] [place], [place], [id number], 05/06/2024 12:39:23 Patient TargetsNo targets recorded. Patient InstructionsNo instructions recorded. Reason for Referral None Reported. Results Created Date Observation Date Name Description Value Unit Range Abnormal Flag Note LastModifiedBy Organization Detail LastModifiedTime 05/06/20 24 05/06/2024 ESR (eryt hrocy te sedim entat ion rate) , blood sed rate 10 mm/HR 0 - 30 Not Available [facility] [address] [place] [address], [id number], 05/06/2024 15:47:11 05/06/20 24 05/06/2024 C-jomar ctive prote in, quant itati ve, serum or plasm a CRP Not Available [facility] [address] [place] [address], [id number], 05/06/2024 16:00:54 05/06/20 24 05/06/2024 C-jomar ctive prote in, quant itati ve, serum or plasm a CRP 0.5 mg/dL <0.4-0 .5 Not Available [facility] [address] [place] [address], [id number], 05/06/2024 16:00:54 05/06/20 24 05/06/2024 CBC CBC Not Available [facility] [address] [place] [address], [id number], 05/06/2024 16:06:28 05/06/2005/06/2024 CBC WBC 8.6 K/uL 3.8-11 .2 Not Available [facility] [address] [place] [address], [id number], 05/06/2024 16:06:28 05/06/20 24 05/06/2024 CBC RBC 4.42 M/uL 3.92-5 .10 Not Available [facility] [address] [place] [address], [address], 05/06/2024 16:06:28 05/06/20 24 05/06/2024 CBC HGB 13.7 g/dL 11.8-1 5.3 Not Available [facility] [address] [place] [address], [address], 05/06/2024 16:06:28 05/06/20 24 05/06/2024 CBC HCT 41.1 % 36.5-4 4.8 Not Available [facility] [address] [place] [address], [address], 05/06/2024 16:06:28 05/06/20 24 05/06/2024 CBC MCV 93.0 fL 80.0-9 9.0 Not Available [facility] [address] [place] [address], [address], 05/06/2024 16:06:28 05/06/20 24 05/06/2024 CBC MCH 31.0 pg 25.5-3 3.6 Not Available [facility] [address] [place] [address], [address], 05/06/2024 16:06:28 05/06/20 24 05/06/2024 CBC MCHC 33.3 g/dL 32.0-3 6.0 Not Available [facility] [address] [place] [address], [address], 05/06/2024 16:06:28 05/06/20 24 05/06/2024 CBC RDW-SD 43.5 fL 35.1 - 46.3 Not Available [facility] [address] [place] [address], [address], 05/06/2024 16:06:28 05/06/20 24 05/06/2024 CBC plt 379 K/uL 130-40 0 Not Available [facility] [address] [place] [address], [address], 05/06/2024 16:06:28 05/06/20 24 05/06/2024 CBC MPV 9.9 fL 9.3-12 .8 Not Available [facility] [address] [place] [address], [address], 05/06/2024 16:06:28 05/06/20 24 05/06/2024 XR, hand, 3 [place] [address] Teleph one [phone] Name: Francesca Bustamante 3Ex am Date: 2023 [...] 12:09 PM cc: Page PAGE 1 of [facility] 1 [facility] [address] [place] [address], [id number], 05/06/2024 14:12:28 Result Notes None recorded. Problems Name Problem SNOMED Code Status Onset Date Resolution Date Notes Provider Name and Address Organization Details Recorded Time Pain in left thumb 2074964597305 100 Active 2023 Monica Seals [facility] 4 17:53:29 Postoperati ve pain 528496710 Active 2023 Monica Seals [facility] 4 00:20:02 Disorder of skin and/or subcutaneou s tissue 77694992 Active 2024 Chelsie Saravia [facility] 5 07:16:29 Osteoarthri tis of first carpometaca rpal joint of left hand 7094392821012 03 Active 2023 Lori Montana [facility] 4 08:44:21 Diabetes mellitus 15078366 Active 2023 [facility] 4 15:13:32 Gastroesoph ageal reflux disease 884319695 Active 2023 [facility] 4 15:13:41 Anxiety 46964425 Active 2023 [facility] 4 15:13:54 Insomnia 313794474 Active 2023 [facility] 4 15:14:23 Hyperlipide gabby 70345427 Active 2023 [facility] 4 15:14:58 Essential hypertensio n 64151566 Active 2023 [facility] 4 15:16:04 Chronic depression 115762490 Active 2023 [facility] 4 15:16:55 Carpal tunnel syndrome of left wrist 0324496449410 02 Active 2023 CLARISSE LONDON PA-C [address] [place] [address], [address], [facility] 4 13:08:21 Pain of left wrist 1963165434208 02 Active 2023 Aspen kaplan, [facility] 4 13:44:50 Problem Notes None recorded. Procedures Surgical History Date Name Laterality Status Provider Name and Address Organization Details Recorded Time 12/23/19 24 [place] Operative Report completed Ankur Gardiner MD [address] [place] [address], [phone], [facility] 12/24/2023 06:08:35 12/23/19 24 [place] Anes PostOp Pain Up Ext Nerve Block completed Deangelo Alaniz MD [address] [place] [address], [address], [facility] 12/23/2023 13:33:18 12/23/[address] [facility] 02/12/2024 16:28:29 12/23/19 24 [address] surgery completed [facility] 02/12/2024 16:28:49 Colonoscopy with biopsy completed Not Available Health Note 11/16/2023 12:02:29 Partial hysterectomy completed Not Available Health Note 11/16/2023 12:02:29 Imaging Results Imaging Date Name Status LastModified by Organiz ation Details LastModified Time 05/06/2024 XR, hand, 3 or more view completed [facility] [address] [place] [address], [id number], 05/06/2024 14:12:28 Procedure Notes None recorded. Medical Equipment None Reported. Allergies Allergen ID Allergen Name Allergen Category Reaction Reaction Severity Criticality Documentation Date Start Date Code Code System Note Provider Name and Address Organization Details Recorded Time 860509 Substance with sulfonami de structure and antibacte rial mechanism of action (substanc e) medicatio n rash Not available Not available 07/13/20232016 09106 0120 SNOMED React ion: Rash; Not Available Not [...] Updated DateTime 07/08/2024 160.02 cm 27.2 kg/m2 11737.51 g Rubia Peña [facility] 07/08/2024 11:21:21 Social History Question Answer Notes LastModified by LuckyCal Details LastModified Time Tobacco Smoking Status Never Smoker Rubia Mariana [facility] 07/08/2024 11:21:28 Do You Have An [...] Do You Have A Medical Power Of Vulcanized Fiber Unit Operator? No [email or web address] Information not available 11/16/2023 What Was The Date Of Your Most Recent Tobacco Screening? 11/23/2023 [email or web address] Information not available 11/16/2023 What Is Your Relationship Status? [email or web address] Information not available 11/16/2023 Do You Use Any Illicit Or Recreational Drugs? No [email or web address] Information not available 11/16/2023 Sex: Unknown Functional Status Question Answer Note LastModified by [email or web address] ion Details LastModified Time What is your [...] SNOMED-CT Code Diagnosis ICD10 Code Diagnosis Note [id number] Ankur Gardiner MD [facility] ([place]) [address] [place] [address] 11/23/2023 09:45:00 11/23/2023 11:15:42 [id number] Owen Alaniz MD [facility]hesi [facility] ([place]) [address] [place] [address] 12/23/2023 11:06:58 01/01/2024 11:14:59 [id number] Ankur Gardiner MD [facility] ([place]) [address] [place] [address], [address] [place] [address] 12/23/2023 11:06:59 12/31/2023 08:38:42 Osteoarthritis of first carpometacarpal joint of left hand 9994332905 83287 M18.12 Carpal sweetie belen syndrome of left wrist 0981242356 25843 G56.02 [id number] Ankur Gardiner MD [facility] ([place]) [address] [place] [address], [place] [address] 01/06/2024 12:07:29 01/06/2024 14:34:18 Osteoarthritis of first carpometacarpal joint of left hand 1063401610 77349 M18.12 Follow-up status 5650065 05 Z47.1 History of arthroplasty of finger of left hand 1812207059 538550 Z96.692 Renewal of prescription 594322924 Z76.0 [id number] Ankur Gardiner MD [address] [facility] ([place]) [address] [place] [address],[address] [place] [address] 02/03/2024 12:05:17 02/03/2024 16:36:21 [id number] Michell Jackson, OTR [address] [facility] ([place]) [address] [place] [address],[place] [address] 02/03/2024 12:40:24 02/03/2024 15:37:16 Osteoarthritis of first carpometacarpal joint of left hand 6946359493 28733 M18.12 [id number] Ankur Gardiner MD [address] [facility] ([place]) [address] [place] [address] 02/09/2024 09:14:49 02/09/2024 10:03:22 Osteoarthritis of first carpometacarpal joint of left hand 9588824168 50008 M18.12 Pain in left thumb 03949 39118 149542 M79.645 Postoperative visit 1836 47932 Z48.89 Postoperative pain 78220 9007 G89.18 [id number] Ankur Gardiner MD [address] [facility] ([place]) [address] [place] [address], [place] [address] 03/28/2024 11:32:11 03/28/2024 13:58:07 Pain in left thumb 1737922524 576287 M79.645 History of artificial joint 703313398 Z96.692 [id number] Ankur Gardiner MD [address] [facility] ([place]) [address] [place] [address],[address] [place] [address] 05/06/2024 12:18:22 05/06/2024 13:37:59 Pain in left thumb 5476732613 693051 M79.645 [id number] Ankur Gardiner MD [address] [facility] ([place]) [address] [place] [address], [place] [address] 05/19/2024 15:59:09 05/20/2024 18:27:33 Pain in left thumb 2973461007 311703 M79.645 History of artificial joint 805703795 Z96.692 [id number] Ankur Gardiner MD [address] [facility] [place]) [address] [place] [address] 06/30/2024 15:05:59 07/01/2024 18:23:24 History and physical examination, follow-up 581641945 Z09 History of artificial joint 407594335 Z96.692 [id number] Vero Pereira MD [facility] ([place]) [address] [place] [address] 07/08/2024 11:04:12 07/08/2024 17:16:58 Procedure 32985139 Z41.1 Disorder o f skin and/or subcutaneous tissue 40365820 L98.8 Health Concerns Section Related Observation LastModified by Organization Detai ls LastModified Time None Recorded Concern Status LastModified by Organization Details LastModified Time None Recorded Advance Directives Directive Y: Payers Encounter Date Sequence Insurance Name Policy Number Policy Lentz Covered Member ID Lentz Member ID Guarantor Name 03/28/2024 1 [employer] (MEDICARE REPLACEMENT PPO) [id number] Francesca White Alepra [id number] Lexa Alepra 05/06/2024 1 [employer] (MEDICARE REPLACEMENT PPO) [id number] Francesca White Alepra [id number] Lexa Alepra 05/19/2024 1 [employer] (MEDICARE REPLACEMENT PPO) [id number] Francesca White Alepra [id number] Lexa Alepra 06/30/2024 1 [employer] (MEDICARE REPLACEMENT PPO) [id number] Francesca White Alepra [id number] Lexa Alepra Notes Date Note Type Note [...] a home exercise program. Ankur Gardiner MD [facility] [place] [address], [address], [facility] 04/01/2024 05:00:50 4 text/html Francesca Bustamanteis a [...] thumb. She was seen by my physician electrical assistant, Clarisse, and she was instructed to wear a splint for 2 weeks except for light activities. She does feel this has helped reduce her discomfort somewhat. Ankur Gardiner MD [address] [place] [address], [address], [facility] 05/23/2024 07:04:02 5 text/html Francesca returns for [...] care. Ankur Gardiner MD [address] [place], [address], [facility] 07/06/2024 20:44:03 OBGyn Episode No OBEpisode recorded.
--- OUTSIDE RECORDS SUMMARY | 2024-09-05 13:56 | XMS_ITS ---
Author Organization [facility] Address [facility] [address] [facility] [address] [place] [address] Care Team Providers Care Dehairer Name Role Phone Kings SERRANO, [facility] Primary Care Provider Micki Schuler Unavailable [phone] REASON FOR VISIT New Refill Request Social History Sex Assigned At : Social History Observation Description Sex Assigned At Female Encounters Encounter Location Date Provider Diagnosis [facility] [place] [id number] [facility] [address] [place] [address] 08/07/2024 Micki Arcos Plan Of Treatment Next Appt Details Provider Name:Micki Arcos , 11/03/2024 10:45:00 AM, [facility], [facility] [address], [place], [address], Progress Notes * GARRET ELLIOTTKRYSTINDOB:1945 (78 yo F)Acc No.[id number]:08/07/2024 Patient: MICHEL PEDRO :1945 A ge:78 Y S ex:Female Address:[address] [place] [address], [address] * true * Date: Generated for Artur sosa/Mono/eTransmitting on: 0 09/05/2024 01:56 PM CDT
--- OUTSIDE RECORDS SUMMARY | 2024-09-05 13:56 | XMS_ITS ---
Author Organization [facility] As [address] Address [address] [place] [address] Care Team Providers Care [employer] Systems Worker Name Role Phone Kings SERRANO, [facility] Primary Care Provider UnavailMicki Emery Unavailable [phone] Allergies Allergen (clinical drug ingredient) Drug/Non Drug Allergy documented on EMR Reaction Allergy Type Onset Date Status Substance with sulfonamide structure and antibacterial mechanism of action (substance) SULFA (SULFONAMIDE ANTIBIOTICS) (uncoded) Unknown Allergy 09/28/2023 Active Results Component Value Reference Range Notes UDT Reviewed date:08/11/2024 10:15:30 AM Interpretation: Performing Lab: Notes/Report: THC NEG 0 - 50 ng/ml Cocaine NEG 0 - 300 ng/ml Amphetamine NEG 0 - 1000 ng/ml Buprenorphine (BUP) NEG 0 - 10 ng/ml Secobarbital (Bar) NEG 0 - 300 ng/ml Oxazepam (BZO) POS 0 - 300 ng/ml 6-rjwksfmyzm-6,6-eloelymu-9,3-diphenylpyrrolidine (DAREN P) NEG 0 - 300 ng/ml Methamphetamine (MET) NEG 0 - 1000 ng/ml Methylenedioxymethamphetamine (MDMA) NEG 0 - 500 ng/ml Morphine (MOP 300/[id number]) NEG 0 - 300 ng/ml Methadone (MTD) NEG 0 - 300 ng/ml Phencyclidine (PCP) NEG 0 - 25 ng/ml Nortriptyline (TCA) NEH 0 - 1000 ng/ml Oxycodone NEG 0 - 300 ng/ml x NEG 0 - 300 ng/ml REASON FOR VISIT SLUMS TODAY, Follow Up just got back from [place] Medications Medication SIG (Take, Route, Frequency, Duration) Notes Start Date End Date Status FLUAD 2018- 65YR UP(PF)45 MCG(15 MCGX3)/0.5 ML INTRAMUSCULAR SYRINGE [facility]* 09/28/2023 Unknown Shingrix 50 mcg/0.5 mL Intramuscular 09/28/2023 Unknown ONETOUCH VERIO FLEX MISCELLANEOUS *[facility] and Interaction Alerts* 09/28/2023 Unknown OneTouch Verio In Vitro 09/28/2023 Unkn own traZODone HCl 100 MG 2 TABLET EVERY NIGH T AT BEDTIME 90 DAYS for 90 Active OneTouch Delica Plus [id number] 09/28/2023 Active Amitriptyline HCl 50 MG Oral 09/28/2023 Active Atorvastatin Calcium 40 MG Oral 09/28/2023 Active ALPRAZolam 0.5 MG TAKE 1 TABLET BY MOUTH 3 TIMES A DAY Oral three times a day for 30 days 03/29/2024 Active Furosemide 20 MG Oral 09/28/2023 Ac tive Prevnar 13 0.5 mL Intramuscular *[facility] 09/28/2023 Active Ozempic (1 MG/DOSE) 4 MG/3ML Subcutaneous *[facility]* 09/28/2023 Active traZODone HCl 100 MG 2 tablet every nigh t and 1 tablet as needed at night Oral bedtime for 90 days 2 tablet every night and 1 tablet as needed at night d/c Ambien Active Escitalopram Oxalate 20 MG 1 tablet Oral Once a day for 90 days Active ALPRAZolam 0.5 MG 1 tablet Oral three times a day for 30 days 08/11/2024 Active Social History Sex Assigned At : Social History Observation Description Sex Assigned At Female Vital Signs Blood pressure systolic 110 mm Hg 08/11/19 25 Blood pressure diastolic 73 mm Hg 025 Heart Rate 92 /min 08/11/2024 Height 64.00 in 08/11/2024 Weight 149.0 lbs 08/11/2024 BMI 25.57 kg/m2 08/11/2024 Height-cm 162.56 cm 08/11/2024 Weight-kg 67.59 kg 08/11/2024 Encounters Encounter Location Date Provider Diagnosis [facility] [address] [place] [address] 08/11/2024 Micki Arcos Major depressive disorder, recurrent, mild F33.0 ; Generalized anxiety disorder F41.1 ; Insomnia due to other mental disorder F51.05 ; Post-traumatic stress disorder, chronic F43.12 and Other terminal worker (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 major depression -LEXAPRO 20 MG DAILY educated on all medications, benefits, side effects and risk, and educated on depression, anxiety, and mood d/o and educated on compliance of medications, appointment's, continue therapy discussion with patient about course of treatment and patient instructions. 2. Generalized anxiety disorder -Xanax 0.5 mg three times a day Discussed and educated pt regarding benzodiazepines are generally not intended for prolonged use and that use can cause tolerance, dependence, depression, and associated memory issues including dementias (this list is not exhaustive). Benzodiazepine use is generally not recommended concurrently with pain medications and/or other controlled substances due to increased risks of profound sedation, respiratory depression, coma, and even . They are not to be used with any alcohol, as this combination can also be lethal. Patient was provided caution educated not to take Ambien with Xanax 3. Insomnia disorder related to another mental disorder -Trazodone 200 mg a night- patient reported occasional takes 300 mg dose if needed D/C Ambien 5 mg at bed patient pays for it r/t not covered on insurance- Reported not helping educated not to take Ambien with Xanax or pain rx FDA Warns Against Mixing Opioid Medications and Benzodiazepines As part of the federal government's efforts to address the opioid abuse epidemic, the U.S. Food and Drug Administration ( FDA ) issued a safety announcement on February 13, 2016, advising against the mixture of opioid medications and benzodiazepines. Specifically, a FDA review found that combining opioid medicines with benzodiazepines or other drugs that depress the central nervous system has resulted in serious side effects, including slowed or difficult breathing and deaths. Opioids are a class of powerful narcotic medicines that are used to treat severe pain. Opioids such as codeine and hydrocodone also are approved in combination with other medicines to reduce coughing. They also have serious risks including misuse and abuse, addiction, overdose, and . Benzodiazepines are a class of medicines that are widely used to treat conditions including anxiety, insomnia, and seizures (for example, Xanax, Valium, Ativan and Klonopin). The FDA conducted and reviewed several studies showing that serious health risks are associated with the combined use of opioids and benzodiazepines, as well as other drugs that depress the central nervous system or alcohol. In an effort to decrease the use of opioids and benzodiazepines, or opioids and other central nervous system depressants together, the FDA is adding Boxed Warnings its strongest warnings and with the drug labeling of prescription opioid pain medications, prescription opioid cough medicines, and benzodiazepines (nearly 400 products in total). This type of warning is intended to call attention to serious or life-threatening risks. The specific risks include extreme sleepiness, respiratory depression, coma and . Additional changes include revisions to the Warnings and Precautions, Drug Interactions, and Patient Counseling Information sections of the labeling. 4. Posttraumatic stress disorder -STABLE refer to therapy Dianna patient will wait at this time 5. SLUMS= 26 08/11/24 Discuss results with patient patient under stress with illness presently and senior care specialist 08/11/2024 Generalized anxiety disorder (ICD-10 - F41.1) 1. major depression -LEXAPRO 20 MG DAILY educated on all medications, benefits, side effects and risk, and educated on depression, anxiety, and mood d/o and educated on compliance of medications, appointment's, continue therapy discussion with patient about course of treatment and patient instructions. 2. Generalized anxiety disorder -Xanax 0.5 mg three times a day Discussed and educated pt regarding benzodiazepines are generally not intended for prolonged use and that use can cause tolerance, dependence, depression, and associated memory issues including dementias (this list is not exhaustive). Benzodiazepine use is generally not recommended concurrently with pain medications and/or other controlled substances due to increased risks of profound sedation, respiratory depression, coma, and even . They are not to be used with any alcohol, as this combination can also be lethal. Patient was provided caution educated not to take Ambien with Xanax 3. Insomnia disorder related to another mental disorder -Trazodone 200 mg a night- patient reported occasional takes 300 mg dose if needed D/C Ambien 5 mg at bed patient pays for it r/t not covered on insurance- Reported not helping educated not to take Ambien with Xanax or pain rx FDA Warns Against Mixing Opioid Medications and Benzodiazepines As part of the federal government's efforts to address the opioid abuse epidemic, the U.S. Food and Drug Administration ( FDA ) issued a safety announcement on February 13, 2016, advising against the mixture of opioid medications and benzodiazepines. Specifically, a FDA review found that combining opioid medicines with benzodiazepines or other drugs that depress the central nervous system has resulted in serious side effects, including slowed or difficult breathing and deaths. Opioids are a class of powerful narcotic medicines that are used to treat severe pain. Opioids such as codeine and hydrocodone also are approved in combination with other medicines to reduce coughing. They also have serious risks including misuse and abuse, addiction, overdose, and . Benzodiazepines are a class of medicines that are widely used to treat conditions including anxiety, insomnia, and seizures (for example, Xanax, Valium, Ativan and Klonopin). The FDA conducted and reviewed several studies showing that serious health risks are associated with the combined use of opioids and benzodiazepines, as well as other drugs that depress the central nervous system or alcohol. In an effort to decrease the use of opioids and benzodiazepines, or opioids and other central nervous system depressants together, the FDA is adding Boxed Warnings its strongest warnings and with the drug labeling of prescription opioid pain medications, prescription opioid cough medicines, and benzodiazepines (nearly 400 products in total). This type of warning is intended to call attention to serious or life-threatening risks. The specific risks include extreme sleepiness, respiratory depression, coma and . Additional changes include revisions to the Warnings and Precautions, Drug Interactions, and Patient Counseling Information sections of the labeling. 4. Posttraumatic stress disorder -STABLE refer to therapy Dianna patient will wait at this time 5. SLUMS= 26 08/11/24 Discuss results with patient patient under stress with illness presently and senior care specialist 08/11/2024 Insomnia due to other mental disorder (ICD-10 - F51.05) 1. major depression -LEXAPRO 20 MG DAILY educated on all medications, benefits, side effects and risk, and educated on depression, anxiety, and mood d/o and educated on compliance of medications, appointment's, continue therapy discussion with patient about course of treatment and patient instructions. 2. Generalized anxiety disorder -Xanax 0.5 mg three times a day Discussed and educated pt regarding benzodiazepines are generally not intended for prolonged use and that use can cause tolerance, dependence, depression, and associated memory issues including dementias (this list is not exhaustive). Benzodiazepine use is generally not recommended concurrently with pain medications and/or other controlled substances due to increased risks of profound sedation, respiratory depression, coma, and even . They are not to be used with any alcohol, as this combination can also be lethal. Patient was provided caution educated not to take Ambien with Xanax 3. Insomnia disorder related to another mental disorder -Trazodone 200 mg a night- patient reported occasional takes 300 mg dose if needed D/C Ambien 5 mg at bed patient pays for it r/t not covered on insurance- Reported not helping educated not to take Ambien with Xanax or pain rx FDA Warns Against Mixing Opioid Medications and Benzodiazepines As part of the federal government's efforts to address the opioid abuse epidemic, the U.S. Food and Drug Administration ( FDA ) issued a safety announcement on February 13, 2016, advising against the mixture of opioid medications and benzodiazepines. Specifically, a FDA review found that combining opioid medicines with benzodiazepines or other drugs that depress the central nervous system has resulted in serious side effects, including slowed or difficult breathing and deaths. Opioids are a class of powerful narcotic medicines that are used to treat severe pain. Opioids such as codeine and hydrocodone also are approved in combination with other medicines to reduce coughing. They also have serious risks including misuse and abuse, addiction, overdose, and . Benzodiazepines are a class of medicines that are widely used to treat conditions including anxiety, insomnia, and seizures (for example, Xanax, Valium, Ativan and Klonopin). The FDA conducted and reviewed several studies showing that serious health risks are associated with the combined use of opioids and benzodiazepines, as well as other drugs that depress the central nervous system or alcohol. In an effort to decrease the use of opioids and benzodiazepines, or opioids and other central nervous system depressants together, the FDA is adding Boxed Warnings its strongest warnings and with the drug labeling of prescription opioid pain medications, prescription opioid cough medicines, and benzodiazepines (nearly 400 products in total). This type of warning is intended to call attention to serious or life-threatening risks. The specific risks include extreme sleepiness, respiratory depression, coma and . Additional changes include revisions to the Warnings and Precautions, Drug Interactions, and Patient Counseling Information sections of the labeling. 4. Posttraumatic stress disorder -STABLE refer to therapy Dianna patient will wait at this time 5. SLUMS= 26 08/11/24 Discuss results with patient patient under stress with illness presently and senior care specialist 08/11/2024 Post-traumatic stress disorder, chronic (ICD-10 - F43.12) 1. major depression -LEXAPRO 20 MG DAILY educated on all medications, benefits, side effects and risk, and educated on depression, anxiety, and mood d/o and educated on compliance of medications, appointment's, continue therapy discussion with patient about course of treatment and patient instructions. 2. Generalized anxiety disorder -Xanax 0.5 mg three times a day Discussed and educated pt regarding benzodiazepines are generally not intended for prolonged use and that use can cause tolerance, dependence, depression, and associated memory issues including dementias (this list is not exhaustive). Benzodiazepine use is generally not recommended concurrently with pain medications and/or other controlled substances due to increased risks of profound sedation, respiratory depression, coma, and even . They are not to be used with any alcohol, as this combination can also be lethal. Patient was provided caution educated not to take Ambien with Xanax 3. Insomnia disorder related to another mental disorder -Trazodone 200 mg a night- patient reported occasional takes 300 mg dose if needed D/C Ambien 5 mg at bed patient pays for it r/t not covered on insurance- Reported not helping educated not to take Ambien with Xanax or pain rx FDA Warns Against Mixing Opioid Medications and Benzodiazepines As part of the federal government's efforts to address the opioid abuse epidemic, the U.S. Food and Drug Administration ( FDA ) issued a safety announcement on February 13, 2016, advising against the mixture of opioid medications and benzodiazepines. Specifically, a FDA review found that combining opioid medicines with benzodiazepines or other drugs that depress the central nervous system has resulted in serious side effects, including slowed or difficult breathing and deaths. Opioids are a class of powerful narcotic medicines that are used to treat severe pain. Opioids such as codeine and hydrocodone also are approved in combination with other medicines to reduce coughing. They also have serious risks including misuse and abuse, addiction, overdose, and . Benzodiazepines are a class of medicines that are widely used to treat conditions including anxiety, insomnia, and seizures (for example, Xanax, Valium, Ativan and Klonopin). The FDA conducted and reviewed several studies showing that serious health risks are associated with the combined use of opioids and benzodiazepines, as well as other drugs that depress the central nervous system or alcohol. In an effort to decrease the use of opioids and benzodiazepines, or opioids and other central nervous system depressants together, the FDA is adding Boxed Warnings its strongest warnings and with the drug labeling of prescription opioid pain medications, prescription opioid cough medicines, and benzodiazepines (nearly 400 products in total). This type of warning is intended to call attention to serious or life-threatening risks. The specific risks include extreme sleepiness, respiratory depression, coma and . Additional changes include revisions to the Warnings and Precautions, Drug Interactions, and Patient Counseling Information sections of the labeling. 4. Posttraumatic stress disorder -STABLE refer to therapy Dianna patient will wait at this time 5. SLUMS= 26 08/11/24 Discuss results with patient patient under stress with illness presently and senior care specialist 08/11/2024 Other correction (current) drug therapy (ICD-10 - Z79.899) 1. major depression -LEXAPRO 20 MG DAILY educated on all medications, benefits, side effects and risk, and educated on depression, anxiety, and mood d/o and educated on compliance of medications, appointment's, continue therapy discussion with patient about course of treatment and patient instructions. 2. Generalized anxiety disorder -Xanax 0.5 mg three times a day Discussed and educated pt regarding benzodiazepines are generally not intended for prolonged use and that use can cause tolerance, dependence, depression, and associated memory issues including dementias (this list is not exhaustive). Benzodiazepine use is generally not recommended concurrently with pain medications and/or other controlled substances due to increased risks of profound sedation, respiratory depression, coma, and even . They are not to be used with any alcohol, as this combination can also be lethal. Patient was provided caution educated not to take Ambien with Xanax 3. Insomnia disorder related to another mental disorder -Trazodone 200 mg a night- patient reported occasional takes 300 mg dose if needed D/C Ambien 5 mg at bed patient pays for it r/t not covered on insurance- Reported not helping educated not to take Ambien with Xanax or pain rx FDA Warns Against Mixing Opioid Medications and Benzodiazepines As part of the federal government's efforts to address the opioid abuse epidemic, the U.S. Food and Drug Administration ( FDA ) issued a safety announcement on February 13, 2016, advising against the mixture of opioid medications and benzodiazepines. Specifically, a FDA review found that combining opioid medicines with benzodiazepines or other drugs that depress the central nervous system has resulted in serious side effects, including slowed or difficult breathing and deaths. Opioids are a class of powerful narcotic medicines that are used to treat severe pain. Opioids such as codeine and hydrocodone also are approved in combination with other medicines to reduce coughing. They also have serious risks including misuse and abuse, addiction, overdose, and . Benzodiazepines are a class of medicines that are widely used to treat conditions including anxiety, insomnia, and seizures (for example, Xanax, Valium, Ativan and Klonopin). The FDA conducted and reviewed several studies showing that serious health risks are associated with the combined use of opioids and benzodiazepines, as well as other drugs that depress the central nervous system or alcohol. In an effort to decrease the use of opioids and benzodiazepines, or opioids and other central nervous system depressants together, the FDA is adding Boxed Warnings its strongest warnings and with the drug labeling of prescription opioid pain medications, prescription opioid cough medicines, and benzodiazepines (nearly 400 products in total). This type of warning is intended to call attention to serious or life-threatening risks. The specific risks include extreme sleepiness, respiratory depression, coma and . Additional changes include revisions to the Warnings and Precautions, Drug Interactions, and Patient Counseling Information sections of the labeling. 4. Posttraumatic stress disorder -STABLE refer to therapy Dianna patient will wait at this time 5. SLUMS= 26 08/11/24 Discuss results with patient patient under stress with illness presently and senior care specialist 08/11/2024 Other referral to the local chapter or national office of the Alzheimer's Association (8-359-903-390 0; http://www.alz .org), the Alzheimer's Disease Education and Referral Center (ADEAR) (; http://www.arely .nih.gov/Alzhe imers/), 1. major depression -LEXAPRO 20 MG DAILY educated on all medications, benefits, side effects and risk, and educated on depression, anxiety, and mood d/o and educated on compliance of medications, appointment's, continue therapy discussion with patient about course of treatment and patient instructions. 2. Generalized anxiety disorder -Xanax 0.5 mg three times a day Discussed and educated pt regarding benzodiazepines are generally not intended for prolonged use and that use can cause tolerance, dependence, depression, and associated memory issues including dementias (this list is not exhaustive). Benzodiazepine use is generally not recommended concurrently with pain medications and/or other controlled substances due to increased risks of profound sedation, respiratory depression, coma, and even . They are not to be used with any alcohol, as this combination can also be lethal. Patient was provided caution educated not to take Ambien with Xanax 3. Insomnia disorder related to another mental disorder -Trazodone 200 mg a night- patient reported occasional takes 300 mg dose if needed D/C Ambien 5 mg at bed patient pays for it r/t not covered on insurance- Reported not helping educated not to take Ambien with Xanax or pain rx FDA Warns Against Mixing Opioid Medications and Benzodiazepines As part of the federal government's efforts to address the opioid abuse epidemic, the U.S. Food and Drug Administration ( FDA ) issued a safety announcement on February 13, 2016, advising against the mixture of opioid medications and benzodiazepines. Specifically, a FDA review found that combining opioid medicines with benzodiazepines or other drugs that depress the central nervous system has resulted in serious side effects, including slowed or difficult breathing and deaths. Opioids are a class of powerful narcotic medicines that are used to treat severe pain. Opioids such as codeine and hydrocodone also are approved in combination with other medicines to reduce coughing. They also have serious risks including misuse and abuse, addiction, overdose, and . Benzodiazepines are a class of medicines that are widely used to treat conditions including anxiety, insomnia, and seizures (for example, Xanax, Valium, Ativan and Klonopin). The FDA conducted and reviewed several studies showing that serious health risks are associated with the combined use of opioids and benzodiazepines, as well as other drugs that depress the central nervous system or alcohol. In an effort to decrease the use of opioids and benzodiazepines, or opioids and other central nervous system depressants together, the FDA is adding Boxed Warnings its strongest warnings and with the drug labeling of prescription opioid pain medications, prescription opioid cough medicines, and benzodiazepines (nearly 400 products in total). This type of warning is intended to call attention to serious or life-threatening risks. The specific risks include extreme sleepiness, respiratory depression, coma and . Additional changes include revisions to the Warnings and Precautions, Drug Interactions, and Patient Counseling Information sections of the labeling. 4. Posttraumatic stress disorder -STABLE refer to therapy Dianna patient will wait at this time 5. SLUMS= 26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
--- OUTSIDE RECORDS SUMMARY | 2024-09-05 13:56 | XMS_ITS | Encounter Summary ---
Author Organization [facility] Healthcare Address [address] [place] [address] Care Team Providers Care Advanced Quality Engineer Name Role Phone Unavailable Primary Care Provider Unavailabl e Reason for Visit * Diagnostic Imaging (Routine) - Closed Specialty Diagnoses / Procedures Referred By Yolanda mendoza Referred To Contact Diagnoses Abnormal finding on breast imaging Procedures Breast Imaging US Outside Reference Jen Hoover MD PhD [address] [facility] [phone] [place] [address] Phone: tel: fax: Referral ID Status Reason Start Date Expiration Date Visits Re quested Visits Authorized [id number] Closed 08/29/2022 09/28/2023 1 1 Encounter Details Date Type Department Care Team ([facility] st Contact Info) Description 01/17/2020 Hospital Encounter [facility] [address] [place] [id number] Social History Tobacco Use Types Packs/Day Years Used Date Smoking Tobacco: Never Personal Safety Answer Date Recorded Getting School Help Needed Not on file 08/28 Comments No Sex and Gender Information Value Date Recorded Sex Assigned at Not on file Legal Sex Female 2:42 AM 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 There will be no report generated by a [facility] Radiologist. Narrative [facility] - 08/29/2022 11:00 AM CDT EXAMINATION: Images For Reference Purposes Only us Jen Hoover MD PhD IMG MAMMO PROCEDURES Final Result [facility] documented in this encounter Visit Diagnoses Not on filedocumented in this encounter
--- OUTSIDE RECORDS SUMMARY | 2024-09-05 13:56 | XMS_ITS | Referral Summary ---
Author Organization [facility] Address [address] [place] [address] Care Team Providers Care Sonogram Technician Name Role Phone Godwin Ku MD Primary Care Provider + [phone] Allergies Active Allergy Reactions Criticality Noted Date [...] on file Legal Sex Female 2:42 AM BRIM PRESSER Gender Identity Not on file Sexual Orientation [...] compared to prior imaging studies performed at [facility] on 01/24/2021 and 09/18/2022. There are [...] compared to prior imaging studies performed at [facility] on 01/24/2021 and 09/18/2022. There are [...] Relevant to Health Maintenance Insurance [employer] HE[employer], [facility] MEDICARE Address: [facility] [id number] [place] [address] UHC MEDICARE ADVANTAGE [employer] MED[employer]ARE Care Teams Sonogram Technician Relationship Specialty Start Date End Date Godwin Ku MD [address] [place] [address] PCP - General Internal Medicine 08/01/20
--- OUTSIDE RECORDS SUMMARY | 2024-09-05 13:56 | XMS_ITS ---
Author Organization [facility] eeg[facility] Address [facility] [address] [facility] [address] [place] [address] Care Team Providers Care Tight Barrel Inspector Name Role Phone [facility] Primary Care Provider Micki Schuler Unavailable [phone] REASON FOR VISIT New Refill Request Social History Sex Assigned At : Social History Observation Description Sex Assigned At Female Encounters Encounter Location Date Provider Diagnosis [facility] [employer] [place] [id number] [facility] [address] [place] [address] 08/08/2024 Micki Arcos Plan Of Treatment Next Appt Details Provider Name:Micki Arcos , 11/03/2024 10:45:00 AM, [facility], [facility] [address], [place], [address], Progress Notes * GARRET ELLIOTTKRYSTINDOB:1945 (78 yo F)Acc No.[id number]:08/08/2024 Patient: MICHEL PEDRO :1945 A ge:78 Y S ex:Female Address:[address] [place] [address], [id number] * true * Date: Generated for Artur sosa/Mono/eTransmitting on: 0 09/05/2024 01:55 PM CDT
--- OUTSIDE RECORDS SUMMARY | 2024-09-05 13:56 | XMS_ITS | Clinical Summary ---
Author Organization [facility] Address [address] [place] [address] Care Team Providers Care Cobbler Apprentice Name Role Phone Godwin Ku MD Primary Care Provider + [phone] Allergies Active Allergy Reactions Criticality Noted Date [...] Surgery Date Site/Laterality Comments ROTATOR CUFF REPAIR [phone] COLON SURGERY 06/15/2012 - 06/14/2013 THUMB SURGERY [...] on file Legal Sex Female 2:42 AM CPAS Gender Identity Not on file Sexual Orientation [...] compared to prior imaging studies performed at [facility] on 01/24/2021 and 09/18/2022. There are [...] compared to prior imaging studies performed at [facility] on 01/24/2021 and 09/18/2022. There are [...] Most Recently Relevant to Health Maintenance Insurance [facility] MEDICARE UHC MEDICARE ADVANTAGE [facility] MEDICARE Address: [address] [address] [place] [address] [facility] MEDICARE Care Teams Cobbler Apprentice Relationship Specialty Start Date End Date Ku, Rajneesh S., MD [address] [place] [address] PCP - General Internal Medicine 08/01/20
--- OUTSIDE RECORDS SUMMARY | 2024-09-05 13:56 | XMS_ITS | Clinical Summary ---
Author Organization [facility] Address [facility] [place] [address] Care Team Providers Care Case Finisher Name Role Phone Godwin Ku MD Primary Care Provider [phone] Yamil Kee MD Unavailable [phone] Valery Dias [facility] [place]- Unavailable [phone] Allergies Active Allergy Reactions Criticality Noted Date [...] DAILY 11/18/2022 Active Lancets (ONETOUCH DELICA PLUS [id number]) Misc USE TO TEST GLUCOSE TWICE DAILY [...] complication, without long-term current use of insulin ([facility]) Immunizations Name Administration Dates Next Due Fluzone [...] on file Legal Sex Female 12:26 PM SOURCE WATER PROTECTION SPECIALIST Gender Identity Not on file Sexual Orientation Not on file Last Filed Vital Signs Vital Sign Reading Time Taken Comments Blood Pressure 108/66 03/31/2024 2:10 PM CDT Pulse 75 03/31/2024 2:10 PM CDT Temperature 36.6 C (97.8 F) 05/08/2022 8:23 PM SOURCE WATER PROTECTION SPECIALIST Respiratory Rate 16 03/31/2024 2:10 PM [...] 04/16/2022 HEMOGLOBIN, GLYCOSYLATED STAT 06/06/2021 6:10 AM SOURCE WATER PROTECTION SPECIALIST from Last 3 Months or Most Recently Relevant to Health Maintenance Results * LIPID PANEL (04/16/2022) CHOLESTEROL 207 HDL 47 TRIGLYCERIDES 281 LDL (CALCULATED) 104 04/16/2022 us Default History Genericprovider LABORATORY Final Result * (ABNORMAL) HEMOGLOBIN, GLYCOSYLATED (06/06/2021 6:10 AM SOURCE WATER PROTECTION SPECIALIST) HGB A1C 6.2(H) <5.7 % 06/06/2021 7:45 AM SOURCE WATER PROTECTION SPECIALIST [facility] ESTIMATED AVG GLUCOSE 131(H) 74 - 114 MG/DL 06/06/2021 7:45 AM SOURCE WATER PROTECTION SPECIALIST [facility] 06/06/2021 6:10 AM SOURCE WATER PROTECTION SPECIALIST us [facility] Final Res ult [facility] [address] [place] [address], [id number] from Last 3 Months or Most Recently Relevant to Health Maintenance Insurance Advance Directives * Full Code (Latest Code Status on File) Date Activated Date Inactivated Comments 06/06/2021 3:42 PM 06/10/2021 3:21 PM * Full Code Date Activated Date Inactivated Comments 06/06/2021 12:45 AM 06/06/2021 3:41 PM Care Teams Case Finisher Relationship Specialty Start Date End Date Godwin Ku MD [address] [place] [address] PCP - General INTERNAL MEDICINE 12/09/18 Yamil Kee MD [address] [place] [phone] INTERVENTIONAL CARDIOLOGY 10/01/23 Valery Dias, ANP- [address] [place] [address] Nurse Practitioner NURSE PRACTITIONER ADULT HEALTH 10/01/23
== END 2024-09-05 12:04 | disposition home or self-care (01) ==
PROVIDERS: PCP Internal Medicine; Visit Provider Internal Medicine
DX: N39.0 Urinary tract infection, site not specified (principal); M25.512 Pain in left shoulder; M19.012 Primary osteoarthritis, left shoulder
CPT/HCPCS: 73030; 81001; 87086

== ENCOUNTER 2024-09-19 09:56 | Outpatient (RCR) | payer MEDICARE, SELFPAY ==
--- NOTE | 2024-09-19 11:07 | OPREHPOC ---
Outpatient Therapy Plan of Care This is a Multidisciplinary Plan of Care that may contain components documented by all disciplines (PT, OT, and ST.) PT Problem 1 PT Problem #1 Knowledge Deficit PT Goal 1 Goal / Goal Update Independent and compliant with HEP. Target Visit 4 PT Problem 2 PT Problem #2 Pain PT Goal 1 Goal / Goal Update Pt to report no more than 5/10 pain at rest. Target Visit 12 PT Problem 3 PT Problem #3 Impaired Strength PT Goal 1 Goal / Goal Update Pt to improve bilat shoulder strength to 4/5. Target Visit 12 PT Problem 4 PT Problem #4 Impaired Functional Mobility PT Goal 1 Goal / Goal Update Pt to report 20% reduction in L shoulder disability on quick dash. Pt to be able to use her L arm to put on a jacket without assistance from her . Target Visit 12 PT Problem 5 PT Problem #5 Impaired Range of Motion PT Goal 1 Goal / Goal Update Pt to improve active L shoulder flexion to 110 degrees. Pt to improve active L shoulder abduction to 90 degrees. Pt to improve active L shoulder ER to occiput. Pt to improve active L shoulder IR to back pocket. Target Visit 12
--- NOTE | 2024-09-19 11:08 | PTOPEVAL1 ---
Assessment and note entered by Christy Burroughs, PT Evaluation Information Assessment Status Evaluation ICD-10 Condition Codes (PT) Pain in left shoulder M25.512 Onset 05/15/25 Subjective Information Pt reports her shoulder pain has been coming on for a while now. She had a fall in May that resulted in a wrist fracture, she went to PT for that but states it wasn't healing and gave up on it. She also landed on her shoulder during the fall and is now having a pain in her lateral arm/ deltoid area. She has had other previous falls in the past where she's landed on the L shoulder as well as previous muscle tearing and RC surgery and frozen shoulder years ago. She currently has to sleep on her R side and her L arm throbs all night . She is unable to use her L hand to wash her hair and requires her husbands help to get dressed and put on a coat. Recent x-ray shows severe L shoulder osteoarthritis. Reported Pain Level Pain Score 8: Self Report Assessment PT Clinical Summary Mrs. Bustamante is a 78 yo female who enters the clinic with complaints of L shoulder pain. She demonstrates significant L shoulder pain, weakness , and limited AROM/PROM which are interfering with her ability to perform all daily functional tasks such as grooming, dressing, and cleaning. She will benefit from skilled PT intervention to improve on these deficits to be able to perform functional activities with less pain. Patient will also likely benefit from cortisone injection to the L shoulder due to significant pain levels and impaired ROM. Plan of Care Interventions Electrical Stimulation,Hot Pack/Cold Pack,Manual Therapy,Neuro Re-education,Patient/Caregiver Education,Therapeutic Activities,Therapeutic Exercise,Self-Care/Home Management PT Services Indicated Yes Treatment Frequency and 2x/week for 12 visits Duration These treatments will address the objective and functional deficits as defined above. The patient will be advanced safely and appropriately in order for the patient to progress towards his/her prior level of function. Additional exercises will be introduced and as well as a comprehensive home exercise program upon discharge, if needed, ?to ensure carryover of functional gains achieved in the clinic. This treatment plan has been reviewed and agreement upon by the patient.
--- NOTE | 2024-10-27 17:50 | OPREHPOC ---
Outpatient Therapy Plan of Care This is a Multidisciplinary Plan of Care that may contain components documented by all disciplines (PT, OT, and ST.) PT Problem 1 PT Problem #1 Knowledge Deficit PT Goal 1 Goal / Goal Update Independent and compliant with HEP. Target Visit 4 Progress Met PT Problem 2 PT Problem #2 Pain PT Goal 1 Goal / Goal Update Pt to report no more than 5/10 pain at rest. Target Visit 12 Progress Not Met PT Problem 3 PT Problem #3 Impaired Strength PT Goal 1 Goal / Goal Update Pt to improve bilat shoulder strength to 4/5. Target Visit 12 Progress Not Met PT Problem 4 PT Problem #4 Impaired Functional Mobility PT Goal 1 Goal / Goal Update Pt to report 20% reduction in L shoulder disability on quick dash. Pt to be able to use her L arm to put on a jacket without assistance from her . -met Target Visit 12 Progress Partially Met PT Problem 5 PT Problem #5 Impaired Range of Motion PT Goal 1 Goal / Goal Update Pt to improve active L shoulder flexion to 110 degrees. -not met Pt to improve active L shoulder abduction to 90 degrees. -met Pt to improve active L shoulder ER to occiput. - not met Pt to improve active L shoulder IR to back pocket. -met Target Visit 12 Progress Partially Met
--- NOTE | 2024-10-27 17:51 | PTOPPROG ---
Assessment and note entered by Christy Burroughs, PT Evaluation Information Assessment Status Progress ICD-10 Condition Codes (PT) Pain in left shoulder M25.512 Onset 05/15/25 Subjective Information Pt reports her range of motion has improved more than 50% but she is still in a lot of pain. She rates her pain at 7/10 today. She reports she is able to put on a coat better but she still cannot fasten a bra or pull up pants without assistance. She sees her doctor next week. Assessment PT Clinical Summary Mrs. Bustamante has attended 10 total skilled PT visits for L shoulder pain. Since beginning PT she has made good improvements in her L shoulder AROM but is still experiencing high pain levels in the L shoulder. She is now able to put on a jacket more easily but she's still unable to fasten her bra or pull up her pants without assistance. She sees her doctor next week and will benefit from continued skilled PT intervention to continue progressing toward goals. Plan of Care Interventions Electrical Stimulation,Hot Pack/Cold Pack,Manual Therapy,Neuro Re-education,Patient/Caregiver Education,Therapeutic Activities,Therapeutic Exercise,Self-Care/Home Management PT Services Indicated Yes Treatment Frequency and Continue per original POC Duration These treatments will address the objective and functional deficits as defined above. The patient will be advanced safely and appropriately in order for the patient to progress towards his/her prior level of function. Additional exercises will be introduced and as well as a comprehensive home exercise program upon discharge, if needed, ?to ensure carryover of functional gains achieved in the clinic. This treatment plan has been reviewed and agreement upon by the patient.
--- NOTE | 2024-11-03 15:58 | OPREHPOC ---
Outpatient Therapy Plan of Care This is a Multidisciplinary Plan of Care that may contain components documented by all disciplines (PT, OT, and ST.) PT Problem 1 PT Problem #1 Knowledge Deficit PT Goal 1 Goal / Goal Update Independent and compliant with HEP. Target Visit 4 Progress Met PT Problem 2 PT Problem #2 Pain PT Goal 1 Goal / Goal Update Pt to report no more than 5/10 pain at rest. Target Visit 18 Progress Not Met PT Problem 3 PT Problem #3 Impaired Strength PT Goal 1 Goal / Goal Update Pt to improve bilat shoulder strength to 4/5. Target Visit 18 Progress Not Met PT Problem 4 PT Problem #4 Impaired Functional Mobility PT Goal 1 Goal / Goal Update Pt to report 20% reduction in L shoulder disability on quick dash. Pt to be able to use her L arm to put on a jacket without assistance from her . -met Target Visit 18 Progress Partially Met PT Problem 5 PT Problem #5 Impaired Range of Motion PT Goal 1 Goal / Goal Update Pt to improve active L shoulder flexion to 110 degrees. -not met Pt to improve active L shoulder abduction to 90 degrees. -met Pt to improve active L shoulder ER to occiput. - not met Pt to improve active L shoulder IR to back pocket. -met Target Visit 18 Progress Partially Met
--- NOTE | 2024-11-03 15:58 | PTOPREEVAL ---
Assessment and note entered by JT File, PT Evaluation Information Assessment Status Re-evaluation ICD-10 Condition Codes (PT) Pain in left shoulder M25.512 Onset 05/15/24 Subjective Information patient reports she still feels like her rom is improved, but the shoulder is still very painful. she reports she is unable to get dressed, reach behind her back, or do her hair. she does not follow up with her PCP for a few more weeks. Reported Pain Level Pain Score 7: Self Report Assessment PT Clinical Summary mrs. loza has attended 12 skilled PT visits as of this date. she continues to have L shoulder pain, weakness, and decreased rom. albeit it is improved since her initial evaluation and most recent progress note. she has only met goal for HEP as of this date. patient likely needs a L shoulder reports and more specifically a reverse shoulder replacement. we will hold PT at this time and await plan from her and her PCP in a few weeks. she will continue with HEP independent at home. Plan of Care Interventions Electrical Stimulation,Hot Pack/Cold Pack,Manual Therapy,Neuro Re-education,Patient/Caregiver Education,Therapeutic Activities,Therapeutic Exercise,Self-Care/Home Management PT Services Indicated Yes Treatment Frequency and hold therapy Duration These treatments will address the objective and functional deficits as defined above. The patient will be advanced safely and appropriately in order for the patient to progress towards his/her prior level of function. Additional exercises will be introduced and as well as a comprehensive home exercise program upon discharge, if needed, ?to ensure carryover of functional gains achieved in the clinic. This treatment plan has been reviewed and agreement upon by the patient.
--- NOTE | 2025-01-23 17:19 | PCPTNOTE ---
Mrs. Bustamante attended 12 skilled PT visits for L shoulder pain, and on 11/03/2024 she was re-evaluated and was holding PT pending follow-up with her PCP. Upon calling Francesca today she was referred to an orthopedic surgeon (Dr. Inman at [facility]) and sees him on Thursday. Francesca states she plans on getting shoulder surgery and will be seeing us post-op. Her current PT chart will be discharged this date. Christy Burroughs, BHARATHIT
== END 2024-12-18 23:59 | disposition home or self-care (01) ==
LOC: CHSPT 09:56
PROVIDERS: PCP Internal Medicine; Visit Provider Internal Medicine
DX: M25.512 Pain in left shoulder (principal)
CPT/HCPCS: 97014; 97110; 97112; 97140; 97161; G0283

== ENCOUNTER 2024-11-15 08:25 | Outpatient (CLI) | payer MEDICARE, SELFPAY ==
--- NOTE | ~2024-11-15 | DEXA_ITS ---
Bone Density Report Name: MICHEL ELLIOTT Age: 78 Sex: Female Ethnicity: White Date of : 1945 Indication: postmenopausal; screening for osteoporosis; height loss; Referring Provider: Godwin Ku Study: Bone densitometry was performed. Exam Date: November 15, 2024 Accession number: [id number] Bone Density: Region BMD T-score Z-score Classification AP Spine(L1, L2, L3) 1.297 2.5 5.0 Normal Femoral Neck (Left) 0.767 -0.7 1.4 Normal Total Hip (Left) 1.100 1.3 3.2 Normal Femoral Neck (Right) 0.793 -0.5 1.7 Normal Total Hip (Right) 1.013 0.6 2.5 Normal Femoral Neck Mean 0.780 -0.6 1.5 Normal Total Hip Mean 1.057 0.9 2.8 Normal World Health Organization criteria for BMD impression classify patients as: Normal (T-score at or above -1.0), Osteopenia (T-score between -1.0 and -2.5), or Osteoporosis (T-score at or below -2.5). 10-year Fracture Risk: FRAX not reported because: All T-scores for Spine Total, Hip Total, Femoral Neck at or above -1.0 Clinical Information Provided by Patient: Patient maximum height was 65 Menopause Age: 52 No regular weight bearing exercise Does not regularly consume dairy products Drinks caffeinated beverages Onset of menses at age 12 Number of children 3 Impression: The patient has normal bone mass. Discussion: BONE DENSITY IS ABOVE THE MINIMUM DESIRABLE LEVEL AT ALL SKELETAL SITES TESTED. This patient?s bone mineral density is above the minimum desirable level (T-score -1.0 or better) at all sites measured. The patient should follow a healthful lifestyle (good nutrition with adequate calcium and vitamin D, and appropriate weight-bearing exercise). Follow-Up: Consider repeating this study in 5 years or sooner if there is some new clinical indication. Reported by: CANDACE on 11/15/2024 8:44:00 AM. Reviewed, dictated and finalized at location A.
--- OUTSIDE RECORDS SUMMARY | 2024-11-15 08:29 | XMS_ITS | Referral Summary ---
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 Gender Identity Not on file Sexual Orientation Not on file Last Filed Vital Signs Vital Sign Reading Time Taken Comments Blood Pressure - - Pulse - - Temperature - - Respiratory Rate - - Oxygen Saturation - - Inhaled Oxygen Concentration - - Weight 68 kg (149 lb 14.6 oz) 01/24/2021 12:34 P M CDT Height 162.6 cm (5' 4) 01/24/2021 12:34 PM CDT Body Mass Index 25.73 01/24/2021 12:34 PM CDT Plan of Treatment Not on file Procedures Procedure Name Priority Date/Time Associated Diagnosis Comments SCREENING MAMMOGRAM BILATERAL W CAMILO Schedule Routine, Read Routine (OP Routine) 09/01/2023 1:52 PM CDT Screening mammogram, encounter for from Last 3 Months or Most Recently Relevant to Health Maintenance Results * Screening Mammogram Bilateral W Camlio (09/01/2023 1:52 PM CDT) Anatomical Region Laterality Modality Breast Bilateral Mammography Narrative 09/02/2023 11:24 AM CDT Mammogram Technique: Bilateral Digital Breast Tomosynthesis, Bilateral C-view 2D Screening mammogram. Views obtained: bilateral craniocaudal and bilateral mediolateral oblique. Computer Aided Detection was performed. Mammogram Findings: The present examination has been compared to prior imaging studies performed at [facility] on 01/24/2021 and 09/18/2022. There are [...] compared to prior imaging studies performed at [facility] on 01/24/2021 and 09/18/2022. There are [...] Maintenance Insurance [employer] MEDICARE UHC MEDICARE [facility] MED[facility] Address: [address] [address] [place] [address] [employer] MEDICARE Care Teams Copying Machine Mechanic Relationship Specialty Start Date End Date Godwin Ku MD [address] [place] [address] PCP - General Internal Medicine 08/01/20
--- OUTSIDE RECORDS SUMMARY | 2024-11-15 08:29 | XMS_ITS | Data Portability ---
Author Organization [facility], [address] [place] [address] [place]rology ([place]) Address [address] [place] [address] Care Team Providers Care Water Conservationist Name Role Phone TERENCE HODGE Primary Care Provider Assessment Encounter Date Assessment Date Assessment LastModified by Organization Details LastModified Time 05/06/2024 05/06/2024 Chief complaint: Left thumb pain [...] earlier this week she put up her [place] tree and decorate her home for [place] and then pain started while she was [...] extend all other fingers without difficulty. 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 Patient has positive Tinel's [...] will be reevaluated in 6 weeks. prisca [email or web address] Not available 05/22/2024 15:42:24 06/30/2024 06/30/2024 ASSESSMENT [...] a thread lift 15-20 years ago at [facility] in [place]. She states that at that time the threads were placed, and they were too tight and may have been exposed and had infection. She then went on to have treatment by Dr. Santoyo at [facility] who removed the threads. She has [...] laxity as well, volume loss in the latter-day, good malar definition. She has deep seated [...] would like to pursue and discuss surgery. [facility] [email or web address] Not available 07/12/2024 14:39:13 09/16/2024 09/16/2024 CC: Facial rejuvenation surgery Subjective: The patient returns today to review surgical options. At the last visit we discussed a face/neck lift and a separate surgery to address the eyes/brows. She is interested in doing the eye surgery first. I reviewed with her a gliding brow lift and upper lid blepharoplasty. The second surgery would be a face/neck lift with fat grafting. I reviewed the post-op care, recovery and down time. She has some traveling coming up so wants to work that into her schedule. The patient has the following surgical risk factors, which were discussed: History of PDO threads which became infected and required removal. she understand this increases scar tissue and risk of nerve injury. We will work on getting this scheduled for her. Pictures were taken. [email or web address] Not available 09/27/2024 10:41:12 Plan of Treatment Reminders Order Date Submit Date Provider Last Modified By Organization Details Last Modified Time Details Appointments None recorded. Lab CBC 2023 [facility], [address] [place] [address], [id number], 16:06:28 C-reactive protein, quantitativ e, serum or plasma 2023 024 [facility] - [facility], [address] [place] [address], [address], 16:00:54 ESR (erythrocyt e sedimentati on rate), blood 2023 024 [facility] - [facility], [address] [place] [address], [id number], 15:47:11 Referral None recorded. Procedures None recorded. Surgeries None recorded. Imaging XR, hand, 3 or more view 2023 [facility], [address] [facility], [place], [address], 13:12:54 Medication Orders hydrocodone 5 mg-acetamin ophen 325 mg tablet 2023 [id number], [address], [place], [id number], 12:39:23 Patient TargetsNo targets recorded. Patient InstructionsNo instructions recorded. Reason for Referral None Reported. Results Created Date Observation Date Name Description Value Unit Range Abnormal Flag Note LastModifiedBy Organization Detail LastModifiedTime 05/06/2005/06/2024 ESR (eryt hrocy te sedim entat ion rate) , blood sed rate 10 mm/HR 0 - 30 Not Available [facility] [address] [place] [address], [id number], 05/06/2024 15:47:11 05/06/20 24 05/06/2024 C-jomar ctive prote in, quant itati ve, serum or plasm a CRP Not Available [facility] [address] [place] [address], [id number], 05/06/2024 16:00:54 05/06/20 24 05/06/2024 C-jomar ctive prote in, quant itati ve, serum or plasm a CRP 0.5 mg/dL <0.4-0 .5 Not Available [facility] [address] [place] [address], [address], 05/06/2024 16:00:54 05/06/20 24 05/06/2024 CBC CBC Not Available [facility] [address] [place] [address], [address], 05/06/2024 16:06:28 05/06/20 24 05/06/2024 CBC WBC 8.6 K/uL 3.8-11 .2 Not Available [facility] [address] [place] [address], [id number], 05/06/2024 16:06:28 05/06/20 24 05/06/2024 CBC RBC 4.42 M/uL 3.92-5 .10 Not Available [facility] [address] [place] [address], [address], 05/06/2024 16:06:28 05/06/20 24 05/06/2024 CBC HGB 13.7 g/dL 11.8-1 5.3 Not Available [facility] [address] [place] [address], [address], 05/06/2024 16:06:28 05/06/20 24 05/06/2024 CBC HCT 41.1 % 36.5-4 4.8 Not Available [facility] [address] [place] [address], [id number], 05/06/2024 16:06:28 05/06/20 24 05/06/2024 CBC MCV 93.0 fL 80.0-9 9.0 Not Available [facility] [address] [place] [address], [address], 05/06/2024 16:06:28 05/06/20 24 05/06/2024 CBC MCH 31.0 pg 25.5-3 3.6 Not Available [facility] [address] [place] [address], [address], 05/06/2024 16:06:28 05/06/20 24 05/06/2024 CBC MCHC 33.3 g/dL 32.0-3 6.0 Not Available [facility] [address] [place] [address], [address], 05/06/2024 16:06:28 05/06/20 24 05/06/2024 CBC RDW-SD 43.5 fL 35.1 - 46.3 Not Available [facility] [address] [place] [address], [address], 05/06/2024 16:06:28 05/06/20 24 05/06/2024 CBC plt 379 K/uL 130-40 0 Not Available [facility] [address] [place] [address], [address], 05/06/2024 16:06:28 05/06/20 24 05/06/2024 CBC MPV 9.9 fL 9.3-12 .8 Not Available [facility] [address] [place] [address], [address], 05/06/2024 16:06:28 05/06/20 24 05/06/2024 XR, hand, 3 [place] [address] Teleph one [phone] Name: Francesca Bustamante [id number] am Date: 2023 Age: 78Phys ician: Tonja [...] Loving cribe by: TONI LOZOYA MD on: 4 12:09 PM cc: Page PAGE 1 of [facility] 1 aramis [facility] - [facility] [address] [place] [address], [address], 05/06/2024 14:12:28 Result Notes None recorded. Problems Name Problem SNOMED Code Status Onset Date Resolution Date Notes Provider Name and Address Organization Details Recorded Time Pain in left thumb 3524787585405 100 Active 2023 Monica Seals [facility] 4 17:53:29 Postoperati ve pain 876934635 Active 2023 Monica Seals [facility] 4 00:20:02 Disorder of skin and/or subcutaneou s tissue 93529244 Active 2024 Chelsie Blumaishwarya [facility] 5 07:16:29 Osteoarthri tis of first carpometaca rpal joint of left hand 2505593503057 03 Active 2023 [facility] 4 08:44:21 Diabetes mellitus 98142478 Active 2023 [facility] 4 15:13:32 Gastroesoph ageal reflux disease 682108234 Active 2023 [facility] 4 15:13:41 Anxiety 98007711 Active 2023 [facility] 4 15:13:54 Insomnia 298839077 Active 2023 [facility] 4 15:14:23 Hyperlipide gabby 30074167 Active 2023 [facility] 4 15:14:58 Essential hypertensio n 71874280 Active 2023 [facility] 4 15:16:04 Chronic depression 777717243 Active 2023 [facility] 4 15:16:55 Carpal tunnel syndrome of left wrist 0916714279928 02 Active 2023 CLARISES LONDON PA-C [address] [place] [address], [phone], [facility] 4 13:08:21 Pain of left wrist 8356004692340 02 Active 2023 [facility] 4 13:44:50 Problem Notes None recorded. Procedures Surgical History Date Name Laterality Status Provider Name and Address Organization Details Recorded Time 12/23/19 24 SC Operative Report completed Ankur Gardiner MD [address] [place] [address], [phone], [facility] 12/24/2023 06:08:35 12/23/19 24 SC Anes PostOp Pain Up Ext Nerve Block completed Deangelo Alaniz MD [address] [place] [address], [address], [facility] 12/23/2023 13:33:18 12/23/[address] [facility] 02/12/2024 16:28:29 12/23/19 24 Carpal tunnel surgery completed [facility] 02/12/2024 16:28:49 Colonoscopy with biopsy completed Not Available Health Note 11/16/2023 12:02:29 Partial hysterectomy completed Not Available Health Note 11/16/2023 12:02:29 Imaging Results None recorded. Procedure Notes None recorded. Medical Equipment None Reported. Allergies Allergen ID Allergen Name Allergen Category Reaction Reaction Severity Criticality Documentation Date Start Date Code Code System Note Provider Name and Address Organization Details Recorded Time 879029 Substance with sulfonami de structure and antibacte rial mechanism of action (substanc e) medicatio n rash Not available Not available 07/13/20232016 86722 8003 SNOMED React ion: Rash; Not Available [facility] 22:36:28 Medications Name Sig Start Date Stop Date Status Note LastModified by Organization Details LastModified Time atorvastatin 40 mg tablet TAKE 1 TABLET BY MOUTH NIGHTLY AT BEDTIME active Not Available Not Available [...] Available Not Available trazodone 100 mg tablet TAKE 2 TABLET EVERY NIGHT AND 1 TABLET NEEDED AT NIGHT active Not Available Not Available No t Available zolpidem 5 mg tablet TAKE 1 TABLET BY MOUTH BEDTIME 30 DAYS active Not Available Not [...] Available Not Available No t Available Ozempic 2 mg/dose (8 mg/3 mL) subcutaneous pen injector INJECT 2 MG BY SUBCUTANEOU S ROUTE ONCE WEEKLY [...] Updated DateTime 07/08/2024 160.02 cm 27.2 kg/m2 61281.51 g Rubiapreet Peña [facility] 07/08/2024 11:21:21 Date Recorded Body height Body mass index (BMI) Body weight Provider Name and Address Organization Details Last Updated DateTime 09/16/2024 160.02 cm 27.2 kg/m2 25167.51 g Rubiapreet Peña [facility] 09/16/2024 10:55:43 Social History Question Answer Notes LastModified by BABADU Details LastModified Time Tobacco Smoking Status Never Smoker Rubia Arizmendimark [facility] 07/08/2024 11:21:28 Do You Have An Advance Directive? Yes [email or web address] Information not available 11/16/2023 What Is Your Level Of Caffeine Consumption? Occasional [email or web address] Information not available 11/16/2023 What Is Your Code Status? DNR [email or web address] Information not available 11/16/2023 How Many Times Per Week Do You Exercise? Less Than 1 Time Per Week [email or web address] Information not available 11/16/2023 Do You Have A Medical Power Of Mgmt Consultant? No [email or web address] Information not available 11/16/2023 What Was The Date Of Your Most Recent Tobacco Screening? 11/23/2023 [email or web address] Information not available 11/16/2023 What Is Your Relationship Status? [email or web address] Information not available 11/16/2023 Sex: Unknown Functional Status Question Answer Note LastModified by HauteDay[employer] ion Details LastModified Time Do you use any illicit or recreational drugs? No [email or web address] Information not available 11/16/2023 What is your level of alcohol consumption? None [email or web address] Information not available 11/16/2023 Are you currently employed? 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 Occasional [email or web address] [...] available 2024 12:14:33 Medical History Condition Response High Blood Pressure N COPD N Depression N Anxiety Disorder Y Arthritis N Cancer Y Stroke N Fibromyalgia N Kidney Disease N Bleeding Disorder N Asthma N Seizures N Attention-deficit Hyperactivity Disorder N Thyroid Problems N Anemia N Diabetes Y Hyperlipidemia N Heart Disease N Osteoporosis N Gynecological HistoryNo gynecological history recorded. Obstetrics History GPAL:G 0 P 0 0 0 0 Past Encounters Encounter ID Performer Location Encounter Start Date Encounter Closed Date Diagnosis/Indication Diagnosis SNOMED-CT Code Diagnosis ICD10 Code Diagnosis Note [id number] Ankur Gardiner MD [address] [facility] [place] [address] [place] [address] 11/23/2023 09:45:00 11/23/2023 11:15:42 [id number] Owen Alaniz MD [facility] [place] [facility] [place] [address] [place] [phone] 12/23/2023 11:06:58 01/01/2024 11:14:59 [id number] Ankur Gardiner MD [facility] [place] [address] [place] [address], [address] [place] [address] 12/23/2023 11:06:59 12/31/2023 08:38:42 Osteoarthritis of first carpometacarpal joint of left hand 8949909438 70641 M18.12 Carpal sweetie belen syndrome of left wrist 8224251610 62188 G56.02 [id number] CLARISSE LONDON PA-C [facility] [place] [address] [place] [address] 01/06/2024 12:07:29 01/06/2024 14:34:18 Osteoarthritis of first carpometacarpal joint of left hand 1240100770 81396 M18.12 Follow-up status 9179892 05 Z47.1 History of arthroplasty of finger of left hand 9996452608 994592 Z96.692 Renewal of prescription 239603884 Z76.0 [id number] Ankur Gardiner MD [address] [facility] [place] [address] [place] [phone] 02/03/2024 12:05:17 02/03/2024 16:36:21 [id number] Michell Jackson, OTR 800 [facility] ([place]) [address], [place] [address] 02/03/2024 12:40:24 02/03/2024 15:37:16 Osteoarthritis of first carpometacarpal joint of left hand 6339616123 85170 M18.12 [id number] CLARISSE LONDON PA-C [address] [facility] ([place]) [address] [place] [address], [place] [address] 02/09/2024 09:14:49 02/09/2024 10:03:22 Osteoarthritis of first carpometacarpal joint of left hand 2622329674 14160 M18.12 Pain in left thumb 91054 07730 221930 M79.645 Postoperative visit 1836 02688 Z48.89 Postoperative pain 18592 9007 G89.18 [id number] Ankur Gardiner MD [address] [facility] ([place]) [address] [place] [address], [place] [address] 03/28/2024 11:32:11 03/28/2024 13:58:07 Pain in left thumb 5428855501 549244 M79.645 History of artificial joint 281732244 Z96.692 [id number] CLARISSE LONDON PA-C [address] [facility] ([place]) [address] [place] [address], [place] [address] 05/06/2024 12:18:22 05/06/2024 13:37:59 Pain in left thumb 8283392873 082784 M79.645 [id number] Ankur Gardiner MD [address] [facility] ([place]) [address] [place] [address], [place] [address] 05/19/2024 15:59:09 05/20/2024 18:27:33 Pain in left thumb 3659692281 675854 M79.645 History of artificial joint 335484808 Z96.692 [id number] Ankur Gardiner MD [address] [facility] ([place]) [address] [place] [address],[address] [place] [address] 06/30/2024 15:05:59 07/01/2024 18:23:24 History and physical examination, follow-up 971587174 Z09 History of artificial joint 405236892 Z96.692 [id number] Vero Pereira MD [facility] [place]) [address] [place] [address] 07/08/2024 11:04:12 07/08/2024 17:16:58 Procedure 66991608 Z41.1 Disorder o f skin and/or subcutaneous tissue 73252889 L98.8 [id number] Vero Pereira MD [facility] [place]) [address] [place] [address] 09/16/2024 10:32:07 09/16/2024 11:55:19 Health Concerns Section Related Observation LastModified by Organization Detai ls LastModified Time None Recorded Concern Status LastModified by Organization Details LastModified Time None Recorded Advance Directives Directive Y: Payers Insurance Date Sequence Insurance Name Policy Number Policy Lentz Covered Member ID Lentz Member ID Guarantor Name 09/13/2024 1 [employer] (MEDICARE REPLACEMENT/ ADVANTAGE - PPO) [id number] 1 Francesca White Robby [id number] Lexa Bustamante 07/13/2024 COSMETIC SELF PAY Francesca White Robby [id number] Lexa Bustamante Notes Date Note Type Note Provider Name and Address Organization Details Recorded Time 4 text/html Francesca Bustamanteis a 78 year [...] thumb. She was seen by my physician medical record assistant, Clarisse, and she was instructed to wear a splint for 2 weeks except for light activities. She does feel this has helped reduce her discomfort somewhat. Ankur Gardiner MD [facility] [facility], [place], [address], [facility] 05/23/2024 07:04:02 5 text/html Francesca returns for [...] for care. Ankur Gardiner MD [address] [facility], [place], [address], [place] [facility] 07/06/2024 20:44:03 OBGyn Episode No OBEpisode recorded.
--- OUTSIDE RECORDS SUMMARY | 2024-11-15 08:29 | XMS_ITS | Clinical Summary ---
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 There are scattered [...] compared to prior imaging studies performed at [facility] on 01/24/2021 and 09/18/2022. There are scattered [...] Most Recently Relevant to Health Maintenance Insurance [facility] MEDICARE MEDICINE [facility] MEDIC[facility] Address: [address] [place] [address] UHC MEDICARE ADVANTAGE [facility] Address: [address] [place] [address] Care Teams Director Of Recruitment Relationship Specialty Start Date End Date Godwin Ku MD [address] [place] [address] PCP - General Internal Medicine 08/01/20
--- OUTSIDE RECORDS SUMMARY | 2024-11-15 08:29 | XMS_ITS | Patient Health Record ---
Author Organization [facility] As [employer] Address [address] [facility] [address] [place] [address] Care Team Providers Care Life Insurance Specialist Name Role Phone Godwin Ku MD Primary Care Provider Micki Schuler Unavailable [phone] Simi Mireles Unavailable [phone] Allergies Allergen (clinical drug ingredient) Drug/Non Drug [...] Oxazepam (BZO) POS 0 - 300 ng/ml 9-blylgtejsd-8,0-jrzdlfys-5, 3-dipheny lpyrrolidine (EDDP) NEG 0 - 300 ng/ml Methamphetamine (MET) NEG 0 - 1000 ng/ml Methylenedioxymethamphetamine (MDMA) NEG 0 - 500 ng/ml Morphine (MOP 300/[id number]) NEG 0 - 300 ng/ml Methadone (MTD) NEG 0 - 300 ng/ml Phencyclidine (PCP) NEG 0 - 25 ng/ml Nortriptyline (TCA) NEH 0 - 1000 ng/ml Oxycodone NEG 0 - 300 ng/ml x NEG 0 - 300 ng/ml Benzodiazepines Reviewed date:11/11/2024 12:15:34 PM Interpretation: Performing Lab:1, [facility], [address] [place] [address], Director - [id number] Notes/Report: An exception occurred while processing this report and so it has incomplete data. Please contact [employer] for assistance. Medicated Consistent Medicated Consistent Not Medicated Consistent Not Medicated Consistent Not Medicated Consistent Not Medicated Consistent Not Medicated Consistent Not Medicated Consistent Not Medicated Consistent Not Medicated Consistent 7-Aminoclonazepam NEGATIVE 20.0 ng/mL Temazepam NEGATIVE 40.0 ng/mL Oxazepam NEGATIVE 40.0 ng/mL Midazolam NEGATIVE 40.0 ng/mL Lorazepam NEGATIVE 40.0 ng/mL Nordiazepam NEGATIVE 40.0 ng/mL Diazepam NEGATIVE 40.0 ng/mL Clonazepam NEGATIVE 20.0 ng/mL Hydroxyalprazolam 603.5 20.0 ng/mL Alprazolam 136.3 20.0 ng/mL PDF Report CE_OUT_RAW_COMM ON_SRC_ORU Validity Testing Reviewed date:11/11/2024 12:15:45 PM Interpretation: Performing Lab: Notes/Report: Not Medicated Consistent Not Medicated Consistent Not Medicated Consistent Not Medicated Consistent Specific [place] 1.014 1.003 - 1.030 pH 7.0 3.0 - 10.9 Oxidants -10 200 g/mL Creatinine 57.9 20.0 - 300.0 mg/dL Hydroxyalprazolam Reviewed date:08/22/2024 04:57:38 PM Interpretation: Performing Lab:1, [facility], [address] [place] [address], Director - [id number] Notes/Report: An exception occurred while processing this report and so it has incomplete data. Please contact [employer] for assistance. Hydroxyalprazolam >800 20.0 Medicated Consistent PDF Report CE_OUT_RAW_COMM ON_SRC_ORU Alprazolam Reviewed date:08/22/2024 04:57:45 PM Interpretation: Performing Lab: Notes/Report: Alprazolam 394.1 20.0 ng/mL Medicated Consistent NEED PHYSICIAN SIGNATURE Reviewed date:08/23/2024 11:40:50 AM Interpretation: Performing Lab: Notes/Report: Validity Testing Reviewed date:08/22/2024 04:58:03 PM Interpretation: Performing Lab: Notes/Report: Not Medicated Consistent Not Medicated Consistent Not Medicated Consistent Not Medicated Consistent Specific [place] 1.021 1.003 - 1.030 pH 5.3 3.0 - 10.9 Oxidants -39 200 g/mL Creatinine 185.5 20.0 - 300.0 mg/dL UDT Reviewed date:11/03/2024 11:32:00 AM Interpretation: Performing Lab: Notes/Report: THC NEG 0 - 50 ng/ml Cocaine NEG 0 - 300 ng/ml Amphetamine NEG 0 - 1000 ng/ml Buprenorphine (BUP) NEG 0 - 10 ng/ml Secobarbital (Bar) NEG 0 - 300 ng/ml Oxazepam (BZO) POS 0 - 300 ng/ml 2-kdcmtegwgn-6,0-vfcozdga-7, 3-dipheny lpyrrolidine (EDDP) NEG 0 - 300 ng/ml Methamphetamine (MET) NEG 0 - 1000 ng/ml Methylenedioxymethamphetamine (MDMA) NEG 0 - 500 ng/ml Morphine (MOP 300/[id number]) NEG 0 - 300 ng/ml Methadone (MTD) NEG 0 - 300 ng/ml Phencyclidine (PCP) NEG 0 - 25 ng/ml Nortriptyline (TCA) NEG 0 - 1000 ng/ml Oxycodone NEG 0 - 300 ng/ml x NEG 0 - 300 ng/ml Reason For Referral No Information Medications Medication SIG (Take, Route, Frequency, Duration) Notes Start Date End Date Status Prevnar 13 0.5 mL Intramuscular *Pick strength-form from [facility] for eRX* 09/28/2023 Active ONETOUCH VERIO FLEX MISCELLANEOUS *Reorder fro [facility] for eRx and Interaction Alerts* 09/28/2023 Unknown ALPRAZolam 0.5 MG 1 tablet Oral three times a day for 30 days 11/03/2024 Active OneTouch Delica Plus [id number] 09/28/2023 Active Escitalopram Oxalate 20 MG 1 tablet Oral Once a day for 90 days Active Atorvastatin Calcium 40 MG Oral 09/28/2023 Active traZODone HCl 100 MG 2 tablet every nigh t and 1 tablet as needed at night Oral bedtime for 90 days 2 tablet every night and 1 tablet as needed at night Active Amitriptyline HCl 50 MG Oral 09/28/2023 Active Furosemide 20 MG Oral 09/28/2023 Ac tive ALPRAZolam 0.5 MG TAKE 1 TABLET BY MOUTH 3 TIMES A DAY Oral three times a day for 30 days 03/29/2024 Active traZODone HCl 100 MG 2 tablet every nigh t and 1 tablet as needed at night Oral bedtime for 30 days Active HYDROcodone-Acetamin ophen 5-325 MG TAKE 1 TABLET BY MOUTH EVERY 6 HOURS NEEDED FOR PAIN Oral for 5 Days PRN Active OneTouch Verio In Vitro 09/28/2023 Unkn own Shingrix 50 mcg/0.5 mL Intramuscular 09/28/2023 Unknown Ozempic (1 MG/DOSE) 4 MG/3ML Subcutaneous *Pick strength-form from [facility] for eRX* 09/28/2023 Active FLUAD 65YR UP(PF)45 MCG(15 MCGX3)/0.5 ML INTRAMUSCULAR SYRINGE *Reorder from [facility] for eRx and Interaction Alerts* 09/28/2023 Unknown Immunizations Vaccine Route Administration Date Status Comme nts Influenza virus vaccine, quadrivalent (IIV4), split virus, 0.25 mL dosage Unknown 03/15/2018 Administered Influenza virus vaccine, quadrivalent (IIV4), split virus, 0.25 mL dosage Unknown 02/13/2019 Administered Influenza virus vaccine, quadrivalent (IIV4), split virus, 0.25 mL dosage Unknown 03/31/2022 Administered Influenza, high dose seasonal Unknown 04/11/2013 Admini stered Influenza, high-dose seasona l, quadrivalent, preservative free >65 yrs Unknown 02/20/2020 Administered Influenza, seasonal, injecta ble, preservative free, 3 yrs and above Unknown 05/06/2011 Administered Influenza, seasonal, injecta ble, preservative free, 3 yrs and above Unknown 04/12/2015 Administered Novel Oxgwtufak-L9G1-96, preservative free Unknown 05/28/2016 Administered Novel Jzjivbhur-E8D7-30, preservative free Unknown 03/31/2017 Administered Novel Bshcxnuwz-C2F2-20, preservative free Unknown 03/16/2018 Administered Novel Fiowzfcfu-H8P4-72, preservative free Unknown 02/02/2019 Administered Pfizer Biontech Covid-19 Vac cine 2nd dose Unknown 08/08/2020 Administered Pfizer [employer] Covid-19 Vac cine 2nd dose Unknown 08/29/2020 Administered Pfizer [employer] Covid-19 Vac cine 2nd dose Unknown 04/09/2021 Administered Pneumococcal conjugate PCV 13 Unknown 04/12/2015 Admini stered Pneumococcal conjugate PCV 13 Unknown 02/02/2019 Admini stered Pneumococcal conjugate PCV 13 Unknown 02/13/2019 Admini stered Pneumococcal polysaccharide PPV23 Unknown 04/11/2013 Ad ministered Pneumococcal polysaccharide PPV23 Unknown 08/08/2016 Ad ministered Tdap Unknown 05/06/2011 Administered Tdap Unknown 01/09/2020 Administered Zoster Unknown 04/11/2013 Administered Zoster Unknown 12/13/2018 Administered Zoster Unknown 03/11/2019 Administered Social History Tobacco Use: Social History Observation Description Date Details (start date - stop date) Never Smoker NA - NA Sex Assigned At : Social History Observation Description Sex Assigned At Female Tobacco Control (Standard) Question Answer Notes Tobacco use: Nonsmoker Problems Problem Type SNOMED Code ICD Code Onset Dates Problem Status W/U Status Risk Notes Problem Mild recurrent major depression (72096047) Major depressive disorder, recurrent, mild (F33.0) 4 Active confirmed Problem Generalized anxiety disorder (33221113) Generalized anxiety disorder (F41.1) 4 Active confirmed Problem Post-traumatic stress disorder, chronic (F43.12) 4 Active confirmed Problem Insomnia disorder related to another mental disorder (74556249) Insomnia due to other mental disorder (F51.05) 4 Active confirmed Problem Long-term current use of drug therapy (012627757) 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 [address] [address] 02/12/2024 Micki Arcos Major depressive disorder, recurrent, mild F33.0 ; Generalized anxiety disorder F41.1 ; Insomnia due to other mental disorder F51.05 ; Post-traumatic stress disorder, chronic F43.12 and Other long distance operator (current) drug therapy Z79.899 [facility], [facility] [address] [facility] [address] [place] [address] 05/05/2024 Micki Arcos Major depressive disorder, recurrent, mild F33.0 ; Generalized anxiety disorder F41.1 ; Insomnia due to other mental disorder F51.05 ; Post-traumatic stress disorder, chronic F43.12 and Other long distance operator (current) drug therapy Z79.899 [facility], [facility] [address] [facility] [address] [facility] [address] [place] [address] 08/11/2024 Micki Arcos Major depressive disorder, recurrent, mild F33.0 ; Generalized anxiety disorder F41.1 ; Insomnia due to other mental disorder F51.05 ; Post-traumatic stress disorder, chronic F43.12 and Other long distance operator (current) drug therapy Z79.899 [facility], [place] [address] [facility] [address] [address] 11/03/2024 Micki Arcos Encounter for screen ing for cardiovascular disorders Z13.6 ; Major depressive disorder, recurrent, mild F33.0 ; Generalized anxiety disorder F41.1 ; Insomnia due to other mental disorder F51.05 ; Post-traumatic stress disorder, chronic F43.12 ; Other long distance operator (current) drug therapy Z79.899 and Negative depression screening Z13.31 [facility], [address] [address] 11/21/2023 Micki Arcos [facility], [place] [address] [facility] [address] [address] 12/07/2023 Micki Arcos [facility], [place] [address] [facility] [address] [address] 01/28/2024 Micki Arcos [facility], [address] [address] 01/28/2024 Simi Mireles Generalized anxiety disorder F41.1 [facility], [address] [address] 03/27/2024 Micki Arcos [facility] [address] [facility] [address] [place] [address] 03/27/2024 Micki Arcos [facility] [employer] [facility] [address] [facility] [address] [place] [address] 08/07/2024 [facility] [address] [facility] [address] [place] [address] 08/08/2024 Micki Arcos [facility], [facility] [address] [facility] [address] [place] [address] 10/04/2024 Micki Arcos Assessments Encounter Date Diagnosis (ICD Code) Assessment Notes Treatment Notes Treatment Clinical Notes Section Notes 02/12/2024 Major depressive disorder, recurrent, mild (ICD-10 - F33.0) 1. Mild recurrent major depression -LEXAPRO 20 MG DAILY educated [...] another mental disorder -Trazodone 200 mg a night Ambien 5 mg at bed patient pays for it r/t not covered on insurance educated not to take Ambien with Xanax 4. Posttraumatic stress disorder -STABLE refer to therapy Dianna patient will wait at this time 02/12/2024 Generalized anxiety disorder (ICD-10 - F41.1) 1. Mild recurrent major depression -LEXAPRO 20 MG DAILY educated [...] another mental disorder -Trazodone 200 mg a night Ambien 5 mg at bed patient pays for it r/t not covered on insurance educated not to take Ambien with Xanax 4. Posttraumatic stress disorder -STABLE refer to therapy Dianna patient will wait at this time 05/05/2024 Major depressive disorder, recurrent, mild (ICD-10 - F33.0) 1. Mild recurrent major depression -LEXAPRO 20 MG DAILY educated [...] another mental disorder -Trazodone 200 mg a night Ambien 5 mg at bed patient pays for it r/t not covered on insurance educated not to take Ambien with Xanax or pain rx FDA Warns Against Mixing Opioid Medications and Benzodiazepines As part of the federal government's efforts to address the opioid abuse epidemic, the U.S. Food and Drug Administration (FDA) issued a safety announcement on February 13, [...] Dianna patient will wait at this time 08/11/2024 Major depressive disorder, recurrent, mild (ICD-10 [...] epidemic, the U.S. 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 major depression - LEXAPRO 20 MG DAILY educated on all medications, [...] Insomnia disorder related to another mental disorder - Trazodone 200 mg a night- patient reported occasional takes 300 mg dose if needed educated not to take Ambien with Xanax or pain rx FDA Warns Against Mixing Opioid Medications and Benzodiazepines As part of the federal government's efforts to address the opioid abuse epidemic, the U.S. Food and Drug Administration (FDA) issued a safety announcement on February 13, [...] patient under stress with illness presently and adult care manager 11/03/2024 Major depressive disorder, recurrent, mild (ICD-10 - F33.0) 1. major depression - LEXAPRO 20 MG DAILY educated on all medications, [...] Insomnia disorder related to another mental disorder - Trazodone 200 mg a night- patient reported occasional takes 300 mg dose if needed educated not to take Ambien with Xanax or pain rx FDA Warns Against Mixing Opioid Medications and Benzodiazepines As part of the federal government's efforts to address the opioid abuse epidemic, the U.S. Food and Drug Administration (FDA) issued a safety announcement on February 13, [...] patient under stress with illness presently and adult care manager 08/11/2024 Generalized anxiety disorder (ICD-10 - F41.1) [...] epidemic, the U.S. Food and Drug Administration (FDA) issued a safety announcement on February 13, [...] patient under stress with illness presently and adult care manager 05/05/2024 Generalized anxiety disorder (ICD-10 - F41.1) 1. Mild recurrent major depression -LEXAPRO 20 MG DAILY educated [...] another mental disorder -Trazodone 200 mg a night Ambien 5 mg at bed patient pays for it r/t not covered on insurance educated not to take Ambien with Xanax or pain rx FDA Warns Against Mixing Opioid Medications and Benzodiazepines As part of the federal government's efforts to address the opioid abuse epidemic, the U.S. Food and Drug Administration (FDA) issued a safety announcement on February 13, [...] Dianna patient will wait at this time 02/12/2024 Insomnia due to other mental disorder (ICD-10 - F51.05) 1. Mild recurrent major depression -LEXAPRO 20 MG DAILY educated [...] another mental disorder -Trazodone 200 mg a night Ambien 5 mg at bed patient pays for it r/t not covered on insurance educated not to take Ambien with Xanax 4. Posttraumatic stress disorder -STABLE refer to therapy Dianna patient will wait at this time 01/28/2024 Generalized anxiety disorder (ICD-10 - F41.1) 02/12/2024 Post-traumatic stress disorder, chronic (ICD-10 - F43.12) 1. Mild recurrent major depression -LEXAPRO 20 MG DAILY educated [...] another mental disorder -Trazodone 200 mg a night Ambien 5 mg at bed patient pays for it r/t not covered on insurance educated not to take Ambien with Xanax 4. Posttraumatic stress disorder -STABLE refer to therapy Dianna patient will wait at this time 05/05/2024 Insomnia due to other mental disorder (ICD-10 - F51.05) CancelRx Response got Denied on 2024-08-11 10:24:48 for 'Zolpidem Tartrate 5 MG Tablet'Pharmacy Notes: Prescription not found. Contact Pharmacy by other means 1. Mild recurrent major depression -LEXAPRO 20 MG DAILY educated [...] another mental disorder -Trazodone 200 mg a night Ambien 5 mg at bed patient pays for it r/t not covered on insurance educated not to take Ambien with Xanax or pain rx FDA Warns Against Mixing Opioid Medications and Benzodiazepines As part of the federal government's efforts to address the opioid abuse epidemic, the U.S. Food and Drug Administration (FDA) issued a safety announcement on February 13, [...] Dianna patient will wait at this time 08/11/2024 Insomnia due to other mental disorder [...] epidemic, the U.S. Food and Drug Administration (FDA) issued a safety announcement on February 13, [...] patient under stress with illness presently and adult care manager 11/03/2024 Generalized anxiety disorder (ICD-10 - F41.1) 1. major depression - LEXAPRO 20 MG DAILY educated on all medications, [...] Insomnia disorder related to another mental disorder - Trazodone 200 mg a night- patient reported occasional takes 300 mg dose if needed educated not to take Ambien with Xanax or pain rx FDA Warns Against Mixing Opioid Medications and Benzodiazepines As part of the federal government's efforts to address the opioid abuse epidemic, the U.S. Food and Drug Administration (FDA) issued a safety announcement on February 13, [...] patient under stress with illness presently and adult care manager 08/11/2024 Post-traumatic stress disorder, chronic (ICD-10 - [...] epidemic, the U.S. Food and Drug Administration (FDA) issued a safety announcement on February 13, [...] patient under stress with illness presently and adult care manager 05/05/2024 Post-traumatic stress disorder, chronic (ICD-10 - F43.12) 1. Mild recurrent major depression -LEXAPRO 20 MG DAILY educated [...] another mental disorder -Trazodone 200 mg a night Ambien 5 mg at bed patient pays for it r/t not covered on insurance educated not to take Ambien with Xanax or pain rx FDA Warns Against Mixing Opioid Medications and Benzodiazepines As part of the federal government's efforts to address the opioid abuse epidemic, the U.S. Food and Drug Administration (FDA) issued a safety announcement on February 13, [...] Dianna patient will wait at this time 02/12/2024 Other long distance operator (current) drug therapy (ICD-10 - Z79.899) 1. Mild recurrent major depression -LEXAPRO 20 MG DAILY educated [...] another mental disorder -Trazodone 200 mg a night Ambien 5 mg at bed patient pays for it r/t not covered on insurance educated not to take Ambien with Xanax 4. Posttraumatic stress disorder -STABLE refer to therapy Dianna patient will wait at this time 11/03/2024 Insomnia due to other mental disorder (ICD-10 - F51.05) 1. major depression - LEXAPRO 20 MG DAILY educated on all medications, [...] Insomnia disorder related to another mental disorder - Trazodone 200 mg a night- patient reported occasional takes 300 mg dose if needed educated not to take Ambien with Xanax or pain rx FDA Warns Against Mixing Opioid Medications and Benzodiazepines As part of the federal government's efforts to address the opioid abuse epidemic, the U.S. Food and Drug Administration (FDA) issued a safety announcement on February 13, [...] patient under stress with illness presently and adult care manager 05/05/2024 Other long distance operator (current) drug therapy (ICD-10 - Z79.899) 1. Mild recurrent major depression -LEXAPRO 20 MG DAILY educated [...] another mental disorder -Trazodone 200 mg a night Ambien 5 mg at bed patient pays for it r/t not covered on insurance educated not to take Ambien with Xanax or pain rx FDA Warns Against Mixing Opioid Medications and Benzodiazepines As part of the federal government's efforts to address the opioid abuse epidemic, the U.S. Food and Drug Administration (FDA) issued a safety announcement on February 13, [...] Dianna patient will wait at this time 08/11/2024 Other correction (current) drug therapy (ICD-10 [...] epidemic, the U.S. Food and Drug Administration (FDA) issued a safety announcement on February 13, [...] patient under stress with illness presently and adult care manager 11/03/2024 Post-traumatic stress disorder, chronic (ICD-10 - F43.12) 1. major depression - LEXAPRO 20 MG DAILY educated on all medications, [...] Insomnia disorder related to another mental disorder - Trazodone 200 mg a night- patient reported occasional takes 300 mg dose if needed educated not to take Ambien with Xanax or pain rx FDA Warns Against Mixing Opioid Medications and Benzodiazepines As part of the federal government's efforts to address the opioid abuse epidemic, the U.S. Food and Drug Administration (FDA) issued a safety announcement on February 13, [...] patient under stress with illness presently and adult care manager 11/03/2024 Other correction (current) drug therapy (ICD-10 - Z79.899) 1. major depression - LEXAPRO 20 MG DAILY educated on all medications, [...] Insomnia disorder related to another mental disorder - Trazodone 200 mg a night- patient reported occasional takes 300 mg dose if needed educated not to take Ambien with Xanax or pain rx FDA Warns Against Mixing Opioid Medications and Benzodiazepines As part of the federal government's efforts to address the opioid abuse epidemic, the U.S. Food and Drug Administration (FDA) issued a safety announcement on February 13, [...] patient under stress with illness presently and adult care manager 11/03/2024 Negative depression screening (ICD-10 - Z13.31) 1. major depression - LEXAPRO 20 MG DAILY educated on all medications, [...] Insomnia disorder related to another mental disorder - Trazodone 200 mg a night- patient reported occasional takes 300 mg dose if needed educated not to take Ambien with Xanax or pain rx FDA Warns Against Mixing Opioid Medications and Benzodiazepines As part of the federal government's efforts to address the opioid abuse epidemic, the U.S. Food and Drug Administration (FDA) issued a safety announcement on February 13, [...] patient under stress with illness presently and adult care manager 08/11/2024 Other referral to the local chapter or national office of the Alzheimer's Association ( ; http://www.alz. org), the Alzheimer's Disease Education and Referral Center (ADEAR) ( ; http://www.arely. nih.gov/Alzheim ers/), 1. major depression -LEXAPRO 20 MG DAILY [...] epidemic, the U.S. Food and Drug Administration (FDA) issued a safety announcement on February 13, [...] patient under stress with illness presently and adult care manager Plan Of Treatment Next Appt Details Provider Name:Micki Arcos , 01/26/2025 11:15:00 AM, [address], [address], [place], [address], Insurance Providers Payer Name Payer Address Payer Phone Subscriber Number Group Number Insured Name Patient Relationship to Insured Coverage Start Date Coverage End Date [employer] Medicare Replacemen t/Advantag e - Ppo [address] [place] [address] [id number] MICHEL ELLIOTT Self - patient is the insured Medical (General) History Medical History History ICD Code Problems: Abnormal weight gain Generalized anxiety disorder History of SARS-CoV-2 Insomnia disorder related to another men marco disorder Long-term drug therapy Mild recurrent major depression Posttraumatic stress disorder Recurrent major depressive episodes, mod erate Weight gain , Surgical History Surgery Date(Month/Year) Hysterectomy (10762) Cataract surgery (60347) Any surgical history Other
--- OUTSIDE RECORDS SUMMARY | 2024-11-15 08:29 | XMS_ITS | Encounter Summary ---
Author Organization [facility] Healthcare Address [address] [place] [address] Care Team Providers Care Sorting Grapple Operator Name Role Phone Unavailable Primary Care Provider Unavailabl e Reason for Visit * Diagnostic Imaging (Routine) - Closed Specialty Diagnoses / Procedures Referred By Yolanda mendoza Referred To Contact Diagnoses Abnormal finding on breast imaging Procedures Breast Imaging US Outside Reference Jen Hoover MD PhD [address] [facility] [id number] [place] [address] Phone: tel: fax: Referral ID Status Reason Start Date Expiration Date Visits Re quested Visits Authorized [id number] Closed 08/29/2022 09/28/2023 1 1 Encounter Details Date Type Department Care Team ([facility] st Contact Info) Description 01/17/2020 Hospital Encounter [facility] [address] [place] [address] Social History Tobacco Use Types Packs/Day Years Used Date Smoking Tobacco: Never Personal Safety Answer Date Recorded Getting School Help Needed Not on file 08/28 Comments No Sex and Gender Information Value Date Recorded Sex Assigned at Not on file Legal Sex Female 2:42 AM ASSIGNMENT AGENT Gender Identity Not on file Sexual Orientation [...] only and have not been reviewed by [facility] Radiology. There will be no report generated by a [facility] Radiologist. Narrative [facility] - 08/29/2022 11:00 AM CDT EXAMINATION: Images For Reference Purposes Only us Jen Hoover MD PhD IMG MAMMO PROCEDURES Final Result [facility] documented in this encounter Visit Diagnoses Not on filedocumented in this encounter
== END 2024-11-15 08:26 | disposition home or self-care (01) ==
LOC: CHSIMG 08:26
PROVIDERS: PCP Internal Medicine; Visit Provider Internal Medicine
DX: Z78.0 Asymptomatic menopausal state (principal)
CPT/HCPCS: 77080

== ENCOUNTER 2024-12-15 14:49 | Outpatient (CLI) | payer MEDICARE, SELFPAY ==
--- NOTE | ~2024-12-15 | MR_ITS ---
MRI of the left shoulder Technique: Axial proton-density fat-sat images, coronal proton density fat-sat and T2 fat-sat images, and sagittal T1-weighted and T2 fat-sat images were acquired. Clinical History: Pain Findings: There is minimal AC joint degenerative change. Coracoclavicular, coracoacromial, and coraco humeral ligaments are intact. Supraspinatus and infraspinatus tendons are intact, without definite partial or full-thickness tear. Subscapularis tendon is intact. Tendon of long head of the biceps is intact. There is probable degenerative attenuation of the inferior labrum. There is severe glenohumeral joint osteoarthritis with large irregular inferomedial humeral head oste ophyte. There is remodeling of the humeral head with diffuse high-grade chondromalacia of the glenohu meral joint. Moderate to large glenohumeral joint effusion is present. There is minimal fluid in the subacromial/subdeltoid bursa. No muscle atrophy or edema. Impression: Severe glenohumeral joint osteoarthritis, as detailed above. Probable degenerative attenuation of the inferior labrum. No rotator cuff tear seen. Minimal AC joint degenerative change. Reviewed, dictated and finalized at [facility]. Impression: Severe glenohumeral joint osteoarthritis, as detailed above. Probable degenerative attenuation of the inferior labrum. No rotator cuff tear seen. Minimal AC joint degenerative change.
--- OUTSIDE RECORDS SUMMARY | 2024-12-15 14:53 | XMS_ITS | Referral Summary ---
Author Organization [facility] Address [address] [place] [address] Care Team Providers Care Learning Facilitator Name Role Phone Godwin Ku MD Primary Care Provider [phone] Allergies Active Allergy Reactions Criticality Noted Date [...] on file Legal Sex Female 2:42 AM CALENDAR CONTROL CLERK BLOOD BANK Gender Identity Not on file Sexual Orientation [...] compared to prior imaging studies performed at [facility] on 01/24/2021 and 09/18/2022. There are scattered [...] compared to prior imaging studies performed at [facility] on 01/24/2021 and 09/18/2022. There are scattered [...] UHC MEDICARE ADVANTAGE [employer] MEDICARE Care Teams Learning Facilitator Relationship Specialty Start Date End Date Godwin Ku MD [address] [place] [address] PCP - General Internal Medicine 08/01/20
--- OUTSIDE RECORDS SUMMARY | 2024-12-15 14:53 | XMS_ITS | Clinical Summary ---
Author Organization [facility] Address [address] [place] [address] Care Team Providers Care Mason Liner Name Role Phone Godwin Ku MD Primary Care Provider + [phone] Allergies Active Allergy Reactions Criticality Noted Date [...] Surgery Date Site/Laterality Comments ROTATOR CUFF REPAIR [id number] COLON SURGERY 06/15/2012 - 06/14/2013 THUMB SURGERY [...] on file Legal Sex Female 2:42 AM PLANNING AIDE Gender Identity Not on file Sexual Orientation [...] compared to prior imaging studies performed at [facility] on 01/24/2021 and 09/18/2022. There are scattered [...] compared to prior imaging studies performed at [facility] on 01/24/2021 and 09/18/2022. There are scattered [...] Most Recently Relevant to Health Maintenance Insurance [facility] Address: [address] [place] [address] UHC MEDICARE ADVANTAGE [facility] Care Teams Mason Liner Relationship Specialty Start Date End Date Godwin Ku MD [address] [place] [address] PCP - General Internal Medicine 08/01/20
--- OUTSIDE RECORDS SUMMARY | 2024-12-15 14:54 | XMS_ITS | Encounter Summary ---
Author Organization [facility] Address [address] [place] [address] Care Team Providers Care Chemical Operator Name Role Phone Godwin Ku MD Primary Care Provider [phone] Yamil Kee MD Unavailable [phone] [facility]- Unavailable [phone] Encounter Details Date Type Department Care Team (Latest Contact Info) Description 12/13/2024 10:59 AM CDT - 12/13/2024 11:59 PM T Hospital Encounter [facility] Radiation Oncology - [place] [address] [place] [address] Kehinde Ruiz MD [address] [place], [place] [id number] Discharge Disposition: Home or Self Care (Routine Discharge) Social History Tobacco Use Types Packs/Day Years Used Date Smoking Tobacco: Former Cigarettes Q uit: 2020 Smokeless Tobacco: Never Comments No Sex and Gender Information Value Date Recorded Sex Assigned at Not on file Legal Sex Female 12:26 PM BIOINFORMATICS SPECIALIST Gender Identity Not on file Sexual Orientation Not on file documented as of this encounter Functional Status * RETIRED Are you deaf or do you have serious difficulty hearing Answer Date of Assessment Author Status No 06/06/2021 2:00 AM BIOINFORMATICS SPECIALIST Activ e * RETIRED Are you blind or do you have serious difficulty seeing, even when wearing glasses? Answer Date of Assessment Author Status No 06/06/2021 2:00 AM BIOINFORMATICS SPECIALIST Activ e * Do you have serious difficulty walking or climbing stairs? Answer Date of Assessment Author Status No 06/06/2021 2:00 AM Paola Carballo RN Active * Do you have difficulty dressing or bathing? Answer Date of Assessment Author Status No 06/06/2021 2:00 AM Paola Carballo RN Active * Because of a physical, mental, or emotional condition, do you have difficulty doing errands alone such as visiting a doctor's office or shopping? Answer Date of Assessment Author Status No 06/06/2021 2:00 AM Paola Carballo RN Active documented as of this encounter Mental Status * Because of a physical, mental, or emotional condition, do you have serious difficulty concentrating, remembering, or making decisions? Answer Entry Date Author Status No 06/06/2021 2:00 AM Paola Carballo RN Active documented in this encounter Medications at Time of Discharge ALPRAZolam 0.5 MG tablet Take 1 tablet (0.5 mg total) by mouth nightly as needed for Sleep. amitriptyline (ELAVIL) 50 MG tablet Take 1 tablet (50 mg total) by mouth nightly at bedtime. 03/09/2022 aspirin EC (ECOTRIN) 81 MG tablet Take 1 tablet (81 mg total) by mouth daily. atorvastatin (LIPITOR) 40 MG tablet Take 1 tablet (40 mg total) by mouth nightly at bedtime. 90 tablet 1 05/17/2024 Blood Glucose Monitoring Suppl (NEXTA MediaTOUCH VERIO FLEX SYSTEM) w/Device Kit USE TO TEST GLUCOSE TWICE DAILY 11/18/2022 escitalopram (LEXAPRO) 20 MG tablet Take 1 tablet (20 mg total) by mouth every morning. 12/23/2022 Lancets (NEXTA MediaTOUCH DELICA PLUS [id number]) Misc USE TO TEST GLUCOSE TWICE DAILY 11/18/2022 ONETOUCH VERIO test strip USE TO TEST GLUCOSE TWICE DAILY 11/18/2022 OZEMPIC 1 mg/dose injection (PEN) 01/30/2023 traZODone (DESYREL) 100 MG tablet Take 2 tablets (200 mg total) by mouth nightly at bedtime. at bedtime 03/29/2022 zolpidem 5 MG tablet Take 1 tablet (5 mg total) by mouth nightly as needed for Sleep. documented as of this encounter Plan of Treatment Upcoming Encounters Date Type Department Care Team (Late st Contact Info) Description 12/19/2024 11:30 AM CDT Appointment [facility] Radiation [facility] [address] [place] [address] Kehinde Ruiz MD [address] [place] [address] 12/20/2024 12:00 PM CDT Appointment [facility] Radiation [facility] [address] [place] [address] Kehinde Ruiz MD [address] [place] [address] documented as of this encounter Goals Goal Patient Goal Type Associated Problems Recent Progress Patient-Stated? Author Patient will return to prior living situation and remain independent in ADLs upon discharge from hospital General No Ayse Vidales RN Safety Patient/family will have appropriate support at home upon discharge General No Ayse Vidales RN documented as of this encounter Visit Diagnoses Not on filedocumented in this encounter Care Teams Chemical Operator Relationship Specialty Start Date End Date Godwin Ku MD [address] [place] [address] PCP - General INTERNAL MEDICINE 12/09/18 Yamil Kee MD [address] [place] [address] INTERVENTIONAL CARDIOLOGY 10/01/23 Valery Dias ANP- [address] [place] [address] Nurse Practitioner NURSE PRACTITIONER ADULT HEALTH 10/01/23 documented as of this encounter
--- OUTSIDE RECORDS SUMMARY | 2024-12-15 14:54 | XMS_ITS | Encounter Summary ---
Author Organization [facility] Address [address] [place] [address] Care Team Providers Care Broom Handle Dipper Name Role Phone Godwin Ku MD Primary Care Provider Yamil Kee MD Unavailable [phone] [facility]- Unavailable [phone] Encounter Details Date Type Department Care Team (Latest Contact Info) Description 12/14/2024 Travel Social History Tobacco Use Types Packs/Day Years Used Date Smoking Tobacco: Former Cigarettes Q uit: 2020 Smokeless Tobacco: Never Comments No Sex and Gender Information Value Date Recorded Sex Assigned at Not on file Legal Sex Female 12:26 PM MAJOR ASSEMBLY INSPECTOR Gender Identity Not on file Sexual Orientation Not on file documented as of this encounter Functional Status * RETIRED Are you deaf or do you have serious difficulty hearing Answer Date of Assessment Author Status No 06/06/2021 2:00 AM MAJOR ASSEMBLY INSPECTOR Activ e * RETIRED Are you blind or do you have serious difficulty seeing, even when wearing glasses? Answer Date of Assessment Author Status No 06/06/2021 2:00 AM MAJOR ASSEMBLY INSPECTOR Activ e * Do you have serious [...] Carballo RN Active documented in this encounter Plan of Treatment Upcoming Encounters Date Type Department Care Team (Late st Contact Info) Description 12/19/2024 11:30 AM CDT Appointment [facility] Radiation [facility] [address] [place] [address] Kehinde Ruiz MD [address] [place] [address] 12/20/2024 12:00 PM CDT Appointment [facility] [address] [place] [address] Kehinde Ruiz MD [address] [place] [address] documented as of this encounter Goals Goal [...] on filedocumented in this encounter Care Teams Broom Handle Dipper Relationship Specialty Start Date End Date Godwin Ku MD [address] [place] [address] PCP - General INTERNAL MEDICINE 12/09/18 Yamil Kee MD [address] [place] [address] INTERVENTIONAL CARDIOLOGY 10/01/23 Valery Dias ANP- [address] [place] [address] Nurse Practitioner NURSE PRACTITIONER ADULT HEALTH 10/01/23 documented as of this encounter
--- OUTSIDE RECORDS SUMMARY | 2024-12-15 14:54 | XMS_ITS | Encounter Summary ---
Author Organization [facility] Address [address] [place] [address] Care Team Providers Care Senior Adults Director Name Role Phone Godwin Ku MD Primary Care Provider [phone] Yamil Kee MD Unavailable [phone] [facility]- Unavailable [phone] Encounter Details Date Type Department Care Team (Late st Contact Info) Description 12/15/2024 12:25 PM T Hospital Encounter [facility] Radiation Oncology - [place] [address] [place] [address] Kehinde Ruiz MD [address] [place], [place] [address] Social History Tobacco Use Types Packs/Day Years Used Date Smoking Tobacco: Former Cigarettes Q uit: 2020 Smokeless Tobacco: Never Comments No Sex and Gender Information Value Date Recorded Sex Assigned at Not on file Legal Sex Female 12:26 PM FISHERY BIOLOGIST Gender Identity Not on file Sexual Orientation Not on file documented as of this encounter Functional Status * RETIRED Are you deaf or do you have serious difficulty hearing Answer Date of Assessment Author Status No 06/06/2021 2:00 AM FISHERY BIOLOGIST Activ e * RETIRED Are you blind or do you have serious difficulty seeing, even when wearing glasses? Answer Date of Assessment Author Status No 06/06/2021 2:00 AM FISHERY BIOLOGIST Activ e * Do you have serious [...] Info) Description 12/19/2024 11:30 AM CDT Appointment [facility] Radiation [address] [address] Kehinde Ruiz MD [address] [place] [address] 12/20/2024 12:00 PM CDT Appointment [address] [address] Kehinde Ruiz MD [address] [place] [address] documented as of this encounter Goals Goal [...] on filedocumented in this encounter Care Teams Senior Adults Director Relationship Specialty Start Date End Date Godwin Ku MD [address] [place] [id number] PCP - General INTERNAL MEDICINE 12/09/18 Yamil Kee MD [address] [place] [address] INTERVENTIONAL CARDIOLOGY 10/01/23 Valery Dias ANP- [address] [place] [address] Nurse Practitioner NURSE PRACTITIONER ADULT HEALTH 10/01/23 documented as of this encounter
--- OUTSIDE RECORDS SUMMARY | 2024-12-15 14:54 | XMS_ITS | Encounter Summary ---
Author Organization [facility] Address [address] [place] [address] Care Team Providers Care Mechanical Planner Name Role Phone Godwin Ku MD Primary Care Provider [phone] Yamil Kee MD Unavailable [phone] [facility]- Unavailable [phone] Encounter Details Date Type Department Care Team (Latest Contact Info) Description 12/15/2024 Travel Social History Tobacco Use Types Packs/Day Years Used Date Smoking Tobacco: Former Cigarettes Q uit: 2020 Smokeless Tobacco: Never Comments No Sex and Gender Information Value Date Recorded Sex Assigned at Not on file Legal Sex Female 12:26 PM CRUCIBLE FURNACE TENDER Gender Identity Not on file Sexual Orientation Not on file documented as of this encounter Functional Status * RETIRED Are you deaf or do you have serious difficulty hearing Answer Date of Assessment Author Status No 06/06/2021 2:00 AM CRUCIBLE FURNACE TENDER Activ e * RETIRED Are you blind or do you have serious difficulty seeing, even when wearing glasses? Answer Date of Assessment Author Status No 06/06/2021 2:00 AM CRUCIBLE FURNACE TENDER Activ e * Do you have serious [...] Info) Description 12/19/2024 11:30 AM CDT Appointment [facility] Radiation [facility] [address] [place] [address] Kehinde Ruiz MD [address] [place] [address] 12/20/2024 12:00 PM CDT Appointment [facility] [address] [place] [address] Kehinde Ruiz MD [address] [place] [address] documented as of this encounter Goals Goal [...] on filedocumented in this encounter Care Teams Mechanical Planner Relationship Specialty Start Date End Date Godwin Ku MD [address] [place] [address] PCP - General INTERNAL MEDICINE 12/09/18 Yamil Kee MD [address] [place] [address] INTERVENTIONAL CARDIOLOGY 10/01/23 Valery Dias ANP- [address] [place] [address] Nurse Practitioner NURSE PRACTITIONER ADULT HEALTH 10/01/23 documented as of this encounter
--- OUTSIDE RECORDS SUMMARY | 2024-12-15 14:54 | XMS_ITS | Encounter Summary ---
Author Organization [facility] Address [address] [place] [address] Care Team Providers Care Soybean Specialties Cook Name Role Phone Godwin Ku MD Primary Care Provider [phone] Yamil Kee MD Unavailable [phone] [facility]- Unavailable [phone] Encounter Details Date Type Department Care Team (Late st Contact Info) Description 12/15/2024 12:00 PM T Hospital Encounter [facility] Radiation Oncology - [place] [address] [place] [address] Kehinde Ruiz MD [address] [place], [place] [id number] Social History Tobacco Use Types Packs/Day Years Used Date Smoking Tobacco: Former Cigarettes Q uit: 2020 Smokeless Tobacco: Never Comments No Sex and Gender Information Value Date Recorded Sex Assigned at Not on file Legal Sex Female 12:26 PM SALES ACCOUNT ASSOCIATE Gender Identity Not on file Sexual Orientation Not on file documented as of this encounter Functional Status * RETIRED Are you deaf or do you have serious difficulty hearing Answer Date of Assessment Author Status No 06/06/2021 2:00 AM SALES ACCOUNT ASSOCIATE Activ e * RETIRED Are you blind or do you have serious difficulty seeing, even when wearing glasses? Answer Date of Assessment Author Status No 06/06/2021 2:00 AM SALES ACCOUNT ASSOCIATE Activ e * Do you have serious [...] Info) Description 12/19/2024 11:30 AM CDT Appointment [facility] Radiation [address] [address] Kehinde Ruiz MD [address] [place] [address] 12/20/2024 12:00 PM CDT Appointment [address] [address] Kehinde Ruiz MD [address] [place] [address] documented as of this encounter Goals Goal [...] on filedocumented in this encounter Care Teams Soybean Specialties Cook Relationship Specialty Start Date End Date Godwin Ku MD [address] [place] [phone] PCP - General INTERNAL MEDICINE 12/09/18 Yamil Kee MD [address] [place] [address] INTERVENTIONAL CARDIOLOGY 10/01/23 Valery Dias ANP- [address] [place] [address] Nurse Practitioner NURSE PRACTITIONER ADULT HEALTH 10/01/23 documented as of this encounter
--- OUTSIDE RECORDS SUMMARY | 2024-12-15 14:54 | XMS_ITS | Encounter Summary ---
Author Organization [facility] Healthcare Address [address] [place] [address] Care Team Providers Care Saddle Lining Stitcher Name Role Phone Unavailable Primary Care Provider Unavailabl e Reason for Visit * Diagnostic Imaging (Routine) - Closed Specialty Diagnoses / Procedures Referred By Yolanda mendoza Referred To Contact Diagnoses Abnormal finding on breast imaging Procedures Breast Imaging US Outside Reference Jen Hoover MD PhD [address] [facility] [id number] [place] [address] Phone: tel: fax: Referral ID Status Reason Start Date Expiration Date Visits Re quested Visits Authorized [id number] Closed 08/29/2022 09/28/2023 1 1 Encounter Details Date Type Department Care Team ([facility] st Contact Info) Description 01/17/2020 Hospital Encounter [facility] [address] [place] [address] Social History Tobacco Use Types Packs/Day Years Used Date Smoking Tobacco: Never Personal Safety Answer Date Recorded Getting School Help Needed Not on file 08/28 Comments No Sex and Gender Information Value Date Recorded Sex Assigned at Not on file Legal Sex Female 2:42 AM CEMENT WORKER Gender Identity Not on file Sexual Orientation [...] only and have not been reviewed by [facility] Radiology. There will be no report generated by a [facility] Radiologist. Narrative [facility] - 08/29/2022 11:00 AM CDT EXAMINATION: Images For Reference Purposes Only us Jen Hoover MD PhD IMG MAMMO PROCEDURES Final Result [facility] documented in this encounter Visit Diagnoses Not on filedocumented in this encounter
--- OUTSIDE RECORDS SUMMARY | 2024-12-15 14:54 | XMS_ITS | Patient Health Record ---
Author Organization [facility] As [employer] Address [address] [facility] [address] [place] [address] Care Team Providers Care Director Of Plant Operations Name Role Phone Godwin Ku MD Primary Care Provider Micki Schuler Unavailable [phone] Simi Mireles Unavailable [phone] Allergies Allergen (clinical drug ingredient) Drug/Non Drug [...] Oxazepam (BZO) POS 0 - 300 ng/ml 8-inbdwkssng-9,6-ptpltwds-3, 3-dipheny lpyrrolidine (EDDP) NEG 0 - 300 ng/ml Methamphetamine (MET) NEG 0 - 1000 ng/ml Methylenedioxymethamphetamine (MDMA) NEG 0 - 500 ng/ml Morphine (MOP 300/[id number]) NEG 0 - 300 ng/ml Methadone (MTD) NEG 0 - 300 ng/ml Phencyclidine (PCP) NEG 0 - 25 ng/ml Nortriptyline (TCA) NEH 0 - 1000 ng/ml Oxycodone NEG 0 - 300 ng/ml x NEG 0 - 300 ng/ml Benzodiazepines Reviewed date:11/11/2024 12:15:34 PM Interpretation: Performing Lab:1, [facility], [address] [place] [address], Director - [id number] Notes/Report: An exception occurred while processing this report and so it has incomplete data. Please contact [employer] for assistance. Medicated Consistent Medicated Consistent Not [...] Not Medicated Consistent Not Medicated Consistent Specific [place] 1.014 1.003 - 1.030 pH 7.0 3.0 - 10.9 Oxidants -10 200 g/mL Creatinine 57.9 20.0 - 300.0 mg/dL Hydroxyalprazolam Reviewed date:08/22/2024 04:57:38 PM Interpretation: Performing Lab:1, [facility], [address] [place] [address], Director - [id number] Notes/Report: An exception occurred while processing this report and so it has incomplete data. Please contact [employer] for assistance. Hydroxyalprazolam >800 20.0 Medicated Consistent PDF Report [email or web address] [email or web address] Alprazolam Reviewed date:08/22/2024 04:57:45 PM Interpretation: Performing Lab: Notes/Report: Alprazolam 394.1 20.0 ng/mL Medicated Consistent NEED PHYSICIAN SIGNATURE Reviewed date:08/23/2024 11:40:50 AM Interpretation: Performing Lab: Notes/Report: Validity Testing Reviewed date:08/22/2024 04:58:03 PM Interpretation: Performing Lab: Notes/Report: Not Medicated Consistent Not Medicated Consistent Not Medicated Consistent Not Medicated Consistent Specific [place] 1.021 1.003 - 1.030 pH 5.3 3.0 [...] Oxazepam (BZO) POS 0 - 300 ng/ml 6-onfeoapccw-1,0-xgygpysp-2, 3-dipheny lpyrrolidine (EDDP) NEG 0 - 300 ng/ml Methamphetamine (MET) NEG 0 - 1000 ng/ml Methylenedioxymethamphetamine (MDMA) NEG 0 - 500 ng/ml Morphine (MOP 300/[id number]) NEG 0 - 300 ng/ml Methadone (MTD) [...] 13 0.5 mL Intramuscular *Pick strength-form from [facility] for eRX* 09/28/2023 Active ONETOUCH VERIO FLEX MISCELLANEOUS *Reorder fro [facility] for eRx and Interaction Alerts* 09/28/2023 Unknown ALPRAZolam 0.5 MG 1 tablet Oral three times a day; Duration: 30 days 11/03/2024 Active OneTouch Delica Plus [id number] 09/28/2023 Active Escitalopram Oxalate 20 MG 1 tablet Oral Once a day; Duration: 90 days Active Atorvastatin Calcium 40 MG Oral 09/28/2023 Active traZODone HCl 100 MG 2 tablet every nigh t and 1 tablet as needed at night Oral bedtime; Duration: 90 days 2 tablet every night and 1 tablet as needed at night Active Amitriptyline HCl 50 MG Oral 09/28/2023 Active Furosemide 20 MG Oral 09/28/2023 Ac tive ALPRAZolam 0.5 MG TAKE 1 TABLET BY MOUTH 3 TIMES A DAY Oral three times a day; Duration: 30 days 03/29/2024 Active traZODone HCl 100 MG 2 tablet every nigh t and 1 tablet as needed at night Oral bedtime; Duration: 30 days Active HYDROcodone-Acetamin ophen 5-325 MG TAKE 1 TABLET BY MOUTH EVERY 6 HOURS NEEDED FOR PAIN Oral; Duration: 5 Days PRN Active OneTouch Verio In Vitro 09/28/2023 Unkn own Shingrix 50 mcg/0.5 mL Intramuscular 09/28/2023 Unknown Ozempic (1 MG/DOSE) 4 MG/3ML Subcutaneous *Pick strength-form from [employer] for eRX* 09/28/2023 Active FLUAD 65YR UP(PF)45 MCG(15 MCGX3)/0.5 ML INTRAMUSCULAR SYRINGE *Reorder from [employer] for eRx and Interaction Alerts* 09/28/2023 Unknown [...] yrs and above Unknown 04/12/2015 Administered Novel Flnaitjmq-H5G6-45, preservative free Unknown 05/28/2016 Administered Novel Mloaysixq-L8E2-76, preservative free Unknown 03/31/2017 Administered Novel Pwhgbdsph-P4E7-97, preservative free Unknown 03/16/2018 Administered Novel Cgvoecied-X7H8-71, preservative free Unknown 02/02/2019 Administered [employer] Covid-19 Vac cine 2nd dose Unknown 08/08/2020 Administered Pfizer [employer] Covid-19 Vac cine 2nd dose Unknown 08/29/2020 Administered [employer] Covid-19 Vac cine 2nd dose Unknown 04/09/2021 [...] Risk Notes Problem Mild recurrent major depression (12948188) Major depressive disorder, recurrent, mild (F33.0) 4 Active confirmed Problem Generalized anxiety disorder (43749623) Generalized anxiety disorder (F41.1) 4 Active confirmed Problem Posttraumatic stress disorder (05278616) Post-traumatic stress disorder, chronic (F43.12) 4 Active confirmed Problem Insomnia disorder related to another mental disorder (52870813) Insomnia due to other mental disorder (F51.05) 4 Active confirmed Problem Long-term current use of drug therapy (042410747) 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 churn buttermaker (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) drug therapy (Z79.899) 4 Active confirmed Vital Signs Heart Rate 78 /min 11/03/2024 Respiratory Rate 17 /min 11/03/2024 Height-cm 162.56 cm 11/03/2024 Blood pressure diastolic 69 mm Hg 11/03/2024 Weight-kg 69.4 kg 11/03/2024 Height 64.00 in 11/03/2024 Blood pressure systolic 101 mm Hg 11/03/2024 Weight 153.0 lbs 11/03/2024 BMI 26.26 kg/m2 11/03/2024 Encounters Encounter Location Date Provider Diagnosis [facility] [address] [place] [address] [address] 02/12/2024 Micki Arcos Major depressive disorder, recurrent, mild F33.0 ; Generalized anxiety disorder F41.1 ; Insomnia due to other mental disorder F51.05 ; Post-traumatic stress disorder, chronic F43.12 and 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 churn buttermaker (current) drug therapy Z79.899 [facility], [facility] [address] [address] [place] [address] 05/05/2024 Micki Arcos Major depressive disorder, recurrent, mild F33.0 ; Generalized anxiety disorder F41.1 ; Insomnia due to other mental disorder F51.05 ; Post-traumatic stress disorder, chronic F43.12 and 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 churn buttermaker (current) drug therapy Z79.899 [facility], [facility] [address] [facility] [address] [place] [address] 08/11/2024 Micki Arcos Major depressive disorder, recurrent, mild F33.0 ; Generalized anxiety disorder F41.1 ; Insomnia due to other mental disorder F51.05 ; Post-traumatic stress disorder, chronic F43.12 and 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 churn buttermaker (current) drug therapy Z79.899 [facility], [place] [address] [facility] [address] [place] [address] 11/03/2024 Micki Arcos Encounter for screen ing for cardiovascular disorders Z13.6 ; Major depressive disorder, recurrent, mild F33.0 ; Generalized anxiety disorder F41.1 ; Insomnia due to other mental disorder F51.05 ; Post-traumatic stress disorder, chronic F43.12 ; Other shelter (current) drug therapy Z79.899 and Negative depression screening Z13.31 [facility], [place] [address] [facility] [address] [place] [address] 01/28/2024 Micki Arcos [facility], [place] [address] [place] [address] 01/28/2024 Simi Mireles Generalized anxiety disorder F41.1 [facility], [place] [address] [facility] [address] [place] [address] 03/27/2024 Micki Arcos [facility], [place] [address] [facility] [address] [place] [address] 03/27/2024 Micki Arcos [facility], [place] [address] [place] [address] 08/07/2024 Micki Josselyn [facility] [employer] [address] [address] [place] [address] 08/08/2024 Micki Deebong [facility] [employer] [address] [facility] [address] [place] [address] 10/04/2024 Micki Josselyn Assessments Encounter Date Diagnosis (ICD Code) Assessment [...] patient under stress with illness presently and home care physical therapist 11/03/2024 Encounter for screening for cardiovascular disorders [...] patient under stress with illness presently and home care physical therapist 11/03/2024 Major depressive disorder, recurrent, mild (ICD-10 [...] patient under stress with illness presently and home care physical therapist 08/11/2024 Generalized anxiety disorder (ICD-10 - F41.1) [...] patient under stress with illness presently and home care physical therapist 05/05/2024 Generalized anxiety disorder (ICD-10 - F41.1) [...] patient under stress with illness presently and home care physical therapist 11/03/2024 Generalized anxiety disorder (ICD-10 - F41.1) [...] patient under stress with illness presently and home care physical therapist 08/11/2024 Post-traumatic stress disorder, chronic (ICD-10 - [...] patient under stress with illness presently and home care physical therapist 05/05/2024 Post-traumatic stress disorder, chronic (ICD-10 - [...] will wait at this time 02/12/2024 Other shelter (current) drug therapy (ICD-10 - Z79.899) 1. [...] patient under stress with illness presently and home care physical therapist 05/05/2024 Other shelter (current) drug therapy (ICD-10 - Z79.899) 1. [...] will wait at this time 08/11/2024 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 churn buttermaker (current) drug therapy (ICD-10 - Z79.899) 1. [...] patient under stress with illness presently and home care physical therapist 11/03/2024 Post-traumatic stress disorder, chronic (ICD-10 - [...] patient under stress with illness presently and home care physical therapist 11/03/2024 Other shelter (current) drug therapy (ICD-10 - Z79.899) 1. [...] patient under stress with illness presently and home care physical therapist 11/03/2024 Negative depression screening (ICD-10 - Z13.31) [...] patient under stress with illness presently and home care physical therapist 08/11/2024 Other referral to the local chapter [...] patient under stress with illness presently and home care physical therapist Plan Of Treatment Next Appt Details Provider Name:Micki Arcos , 01/26/2025 11:15:00 AM, [address] [facility] [address], [facility] [address], [place], [address], Insurance Providers Payer Name Payer Address Payer Phone Subscriber Number Group Number Insured Name Patient Relationship to Insured Coverage Start Date Coverage End Date [employer] Medicare Replacemen t/Advantag e - Ppo [address] [place] [address] [id number] MICHEL ELLIOTT Self - patient is the insured Medical (General) History Medical History History ICD Code Problems: Abnormal weight gain Generalized anxiety disorder History of SARS-CoV-2 Insomnia disorder related to another men marco disorder Long-term drug therapy Mild recurrent major depression Posttraumatic stress disorder Recurrent major depressive episodes, mod erate Weight gain , Surgical History Surgery Date(Month/Year) Hysterectomy (51951) Cataract surgery (15287) Any surgical history Other
--- OUTSIDE RECORDS SUMMARY | 2024-12-15 14:54 | XMS_ITS | Clinical Summary ---
Author Organization [facility] Address [facility] [place] [address] Care Team Providers Care Babbitter Name Role Phone Godwin Ku MD Primary Care Provider [phone] Yamil Kee MD Unavailable [phone] Valery Dias [facility]- Unavailable [phone] Allergies Active Allergy Reactions Criticality Noted Date [...] DAILY 11/18/2022 Active Lancets (ONETOUCH DELICA PLUS [id number]) Misc USE TO TEST GLUCOSE TWICE DAILY [...] complication, without long-term current use of insulin ([facility]) Encounters Date Type Department Care Team Description 12/15/2024 12:25 PM CDT Hospital Encounter [address] [address] Kehinde Ruiz MD 12/15/2024 12:00 PM CDT Hospital Encounter [address] [address] Kehinde Ruiz MD 12/15/2024 Travel 12/14/2024 12:00 PM CDT Hospital Encounter [facility] Radiation [address] [address] Kehinde Ruiz MD 12/14/2024 Travel 12/13/2024 10:59 AM CDT - 12/13/2024 11:59 PM CDT Hospital Encounter [address] [address] Kehinde Ruiz MD Discharge Disposition: Home or Self Care (Routine Discharge) 12/12/2024 11:29 AM CDT - 12/12/2024 11:59 PM CDT Hospital Encounter [address] [address] Kehinde Ruiz MD Discharge Disposition: Home or Self Care (Routine Discharge) 12/12/2024 Travel 12/09/2024 11:29 AM CDT - 12/09/2024 11:59 PM CDT Hospital Encounter [address] [address] Kehinde Ruiz MD Discharge Disposition: Home or Self Care (Routine Discharge) 12/08/2024 12:00 PM CDT - 12/08/2024 11:59 PM CDT Hospital Encounter [address] [address] Kehinde Ruiz MD Discharge Disposition: Home or Self Care (Routine Discharge) 12/08/2024 Travel 11/08/2024 9:45 AM CDT - 11/08/2024 11:59 PM CDT Hospital Encounter [address] [address] Kehinde Ruiz MD Discharge Disposition: Home or Self Care (Routine Discharge) 11/08/2024 Travel from Last 3 Months Immunizations Immunization Administration Dates Next Due Fluzone High Dose - >Age 65 (Prefilled Syringe) 02/20/2020 Influenza Adult (Generic) 03/16/2018,,05/28/2016,2014,05/06/2011 Pneumococcal (Pneumovax 23) 08/08/2016, 3 Tdap (Generic) 05/06/2011 Family History Medical History Relation Comments Heart Attack Father CHF Mother Relation Status Comments Father Mother Sister Alive Social History Tobacco Use Types Packs/Day Years Used Date Smoking Tobacco: Former Cigarettes Q uit: 2020 Smokeless Tobacco: Never Tobacco Cessation:Counseling Given: Not Answered Comments No Sex and Gender Information Value Date Recorded Sex Assigned at Not on file Legal Sex Female 12:26 PM [employer] Gender Identity Not on file Sexual Orientation Not on file Last Filed Vital Signs Vital Sign Reading Time Taken Comments Blood Pressure 108/66 03/31/2024 2:10 PM CDT Pulse 75 03/31/2024 2:10 PM CDT Temperature 36.6 C (97.8 F) 05/08/2022 8:23 PM [employer]ER Respiratory Rate 16 03/31/2024 2:10 PM CDT Oxygen Saturation 96% 03/31/2024 2:10 PM CDT Inhaled Oxygen Concentration - - Weight 69.3 kg (152 lb 12.8 oz) 03/31/2024 2:10 PM CDT Height 158.8 cm (5' 2.5) 03/31/2024 2:10 PM CDT Body Mass Index 27.5 03/31/2024 2:10 PM CDT Plan of Treatment Upcoming Encounters Date Type Department Care Team (Late st Contact Info) Description 12/19/2024 11:30 AM CDT Appointment [facility] Radiation Oncology [facility] [address] [place] [address] Kehinde Ruiz MD [address] [place] [address] 12/20/2024 12:00 PM CDT Appointment [facility] Radiation [facility] [address] [place] [address] Kehinde Ruiz MD [address] [place] [address] Health Maintenance Due Date Last Done Comments Kidney Health Evaluation 1945 Diabetes: Retinopathy Eye Exam 12/29/1965 Hepatitis C 12/29/1965 Annual Medicare Wellness Visit 12/29/2012 Dexa Scan (General) 12/29/2012 Hemoglobin A1C 12/05/2021 06/06/2021, 08/07/2016 RSV Immunization or 60+ Years (1 - 1-dose 75+ series) 12/29/2022 Lipid Panel 04/16/2023 04/16/2022 COVID-19 Vaccine ( season) 2024 04/09/2021, 08/29/2020, 08/08/2020 DTaP, Tdap and Td Vaccines (3 - Td or Tdap) 01/08/2030 01/09/2020, 05/06/2011 Pneumococcal Vaccine: 50+ Years Completed 02/02/2019, 08/08/2016, 04/12/2015, Additional history exists Zoster Vaccines Completed 03/11/2019, 02/14, 12/13/2018, Additional history exists Meningococcal B Vaccine Aged Out No l [...] appropriate support at home upon discharge General Ayse Valdivia RN Procedures Procedure Name Priority Date/Time Associated Diagnosis Comments LIPID PANEL Routine 04/16/2022 HEMOGLOBIN, GLYCOSYLATED STAT 06/06/2021 6:10 AM [employer]IOR [employer] OFFICER from Last 3 Months or Most Recently Relevant to Health Maintenance Results * LIPID PANEL (04/16/2022) CHOLESTEROL 207 HDL 47 TRIGLYCERIDES 281 LDL (CALCULATED) 104 04/16/2022 us Default History Genericprovider LABORATORY Final Result * (ABNORMAL) HEMOGLOBIN, GLYCOSYLATED (06/06/2021 6:10 AM [employer]) HGB A1C 6.2(H) <5.7 % 06/06/2021 7:45 AM S[employer]IOR [employer] OFFICER [facility] ESTIMATED AVG GLUCOSE 131(H) 74 - 114 MG/DL 06/06/2021 7:45 AM S[employer]IOR [employer] OFFICER [facility] 06/06/2021 6:10 AM S[employer]IOR [employer] OFFICER us [facility] Final Res ult [facility] [address] [place] [address], [id number] from Last 3 Months or Most Recently Relevant to Health Maintenance Insurance [facility] Advance Directives * Full Code (Latest Code Status on File) Date Activated Date Inactivated Comments 06/06/2021 3:42 PM 06/10/2021 3:21 PM * Full Code Date Activated Date Inactivated Comments 06/06/2021 12:45 AM 06/06/2021 3:41 PM Care Teams Babbitter Relationship Specialty Start Date End Date Godwin Ku MD [address] [place] [phone] PCP - General INTERNAL MEDICINE 12/09/18 Yamil Kee MD [address] [place] [phone] INTERVENTIONAL CARDIOLOGY 10/01/23 Valery Dias, [facility] [address] [place] [address] Nurse Practitioner NURSE PRACTITIONER ADULT HEALTH 10/01/23
--- OUTSIDE RECORDS SUMMARY | 2024-12-15 14:54 | XMS_ITS | Data Portability ---
Author Organization [facility], [address] [place] [address] Neurology ([place]) Address [address] 4th [place] [address] Care Team Providers Care Lifestyle Block Farmer Name Role Phone TERENCE HODGE Primary Care [...] Jerome tree and decorate her home for [place] and then pain started while she was [...] extend all other fingers without difficulty. 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 Patient has positive Tinel's [...] will be reevaluated in 6 weeks. [email or web address] Not available 05/22/2024 15:42:24 06/30/2024 06/30/2024 ASSESSMENT AND PLAN: The patient is currently doing very well after her left thumb CMC arthroplasty. She can continue a home exercise program as long as she feels it is beneficial to her. She will be reevaluated on an as needed basis only. [email or web address] Not available 07/06/2024 06:48:23 07/08/2024 07/08/2024 SUBJECTIVE: The patient presents to discuss facial rejuvenation. The patient s main complaints are that she has jowls and down turning of the mouth. She is also concerned about her eyes and forehead. The patient has had a thread lift 15-20 years ago at [facility] in [place]. She states that at that time the threads were placed, and they were too tight and may have been exposed and had infection. She then went on to have treatment by Dr. Santoyo at [facility] who removed the threads. She has [...] laxity as well, volume loss in the gnosticism, good malar definition. She has deep seated [...] would like to pursue and discuss surgery. [facility] [email or web address] Not available 07/12/2024 14:39:13 09/16/2024 09/16/2024 CC: [...] this scheduled for her. Pictures were taken. [email or web address] Not available 09/27/2024 10:41:12 Plan of Treatment Reminders Order Date Submit Date Provider Last Modified By Organization Details Last Modified Time Details Appointments None recorded. Lab CBC 2023 [facility] - [facility] Laboratory, [address] [place] [address], [id number], 4 16:06:28 C-reactive protein, quantitativ e, serum or plasma 2023 024 [facility] Laboratory, [address] [place] [address], [id number], 16:00:54 ESR (erythrocyt e sedimentati on rate), blood 2023 024 [facility] - In Laboratory, [address] [place] [address], [id number], 15:47:11 Referral None recorded. Procedures None recorded. Surgeries None recorded. Imaging XR, hand, 3 or more view 2023 [facility] - In Radiology, [address] [facility], [place], [address], 13:12:54 Medication Orders hydrocodone 5 mg-acetamin ophen 325 mg tablet 2023 [id number], [address], [place], [id number], 12:39:23 Patient TargetsNo targets recorded. Patient InstructionsNo instructions recorded. Reason for Referral None Reported. Results Created Date Observation Date Name Description Value Unit Range Abnormal Flag Note LastModifiedBy Organization Detail LastModifiedTime 05/06/2005/06/2024 ESR (eryt hrocy te sedim entat ion rate) , blood sed rate 10 mm/HR 0 - 30 Not Available [facility] - In Laboratory [facility] [address] [place] [address], [id number], 05/06/2024 15:47:11 05/06/20 24 05/06/2024 C-jomar ctive prote in, quant itati ve, serum or plasm a CRP Not Available [facility] - In Laboratory [address] [place] [address], [address], 05/06/2024 16:00:54 05/06/20 24 05/06/2024 C-jomar ctive prote in, quant itati ve, serum or plasm a CRP 0.5 mg/dL <0.4-0 .5 Not Available [facility] - In Laboratory [address] [place] [address], [address], 05/06/2024 16:00:54 05/06/20 24 05/06/2024 CBC CBC Not Available [facility] - In Laboratory [address] [place] [address], [address], 05/06/2024 16:06:28 05/06/20 24 05/06/2024 CBC WBC 8.6 K/uL 3.8-11 .2 Not Available In Only - [facility] [address] [place] [address], [address], 05/06/2024 16:06:28 05/06/20 24 05/06/2024 CBC RBC 4.42 M/uL 3.92-5 .10 Not Available [facility] - [facility] [address] [place] [address], [address], 05/06/2024 16:06:28 05/06/20 24 05/06/2024 CBC HGB 13.7 g/dL 11.8-1 5.3 Not Available [facility] - [facility] [address] [place] [address], [address], 05/06/2024 16:06:28 05/06/20 24 05/06/2024 CBC HCT 41.1 % 36.5-4 4.8 Not Available [facility] - [facility] [address] [place] [address], [address], 05/06/2024 16:06:28 05/06/20 24 05/06/2024 CBC MCV 93.0 fL 80.0-9 9.0 Not Available [facility] Only - [facility] [address] [place] [address], [address], 05/06/2024 16:06:28 05/06/20 24 05/06/2024 CBC MCH 31.0 pg 25.5-3 3.6 Not Available Sc Only - [facility] [address] [place] [address], [address], 05/06/2024 16:06:28 05/06/20 24 05/06/2024 CBC MCHC 33.3 g/dL 32.0-3 6.0 Not Available Sc Only - [facility] Laboratory [address] [place] [address], [address], 05/06/2024 16:06:28 05/06/20 24 05/06/2024 CBC RDW-SD 43.5 fL 35.1 - 46.3 Not Available In Only - In Laboratory [address] [place] [address], [address], 05/06/2024 16:06:28 05/06/20 24 05/06/2024 CBC plt 379 K/uL 130-40 0 Not Available In Only - In Laboratory [address] [place] [address], [address], 05/06/2024 16:06:28 05/06/20 24 05/06/2024 CBC MPV 9.9 fL 9.3-12 .8 Not Available In Only - In Laboratory [address] [place] [address], [address], 05/06/2024 16:06:28 05/06/20 24 05/06/2024 XR, hand, 3 or more view [address] [address] Teleph one Name: Francesca Bustamante 3Ex am Date: 2023 [...] 12:09 PM cc: Page PAGE 1 of [facility] 1 aramis In Only - [facility] Radiology [address] [place] [address], [address], 05/06/2024 14:12:28 Result Notes Documentation Provider Name and Address Organization Details Recorded Time Xr, Hand, 3 Or More View : [address] [address] Name: Francesca Bustamante Date: 05/06/2024 Age: 78Physician: LANDON Alba Emily : 1945Examination: XR HAND COMPLETE LEFT EXAM: XR HAND COMPLETE LEFT HISTORY: Left hand pain and swelling since December. No injury COMPARISON: 10/22/2023. FINDINGS: There is surgical resection of the trapezium. There is csvn-ve-sqeysdsc osteoarthritis, worse in the distal radial ulnar joint. There is chronic widening of the scapholunate interval. No osteomyelitis or fracture present. IMPRESSION: Postsurgical and degenerative changes. No acute findings. Electronically signed in PowerScribe by: TONI LOZOYA MD on:05/06/2024 12:09 PM cc: Page PAGE 1 of NUMPAGES 1 CLARISSE ALBA PA-C [facility] [address], [address], [facility] 05/06/2024 14:12:28 Problems Name Problem SNOMED Code Status Onset Date Resolution Date Notes Provider Name and Address Organization Details Recorded Time Pain in left thumb 0042544748413 100 Active 2023 Monica Seals [facility] 4 17:53:29 Postoperati ve pain 552278630 Active 2023 Monica Seals [facility] 4 00:20:02 Disorder of skin and/or subcutaneou s tissue 50288203 Active 2024 Chelsie Saravia [facility] 5 07:16:29 Osteoarthri tis of first carpometaca rpal joint of left hand 1380135713145 03 Active 2023 Lori Montana [facility] 4 08:44:21 Diabetes mellitus 07821921 Active 2023 [facility] 4 15:13:32 Gastroesoph ageal reflux disease 803705892 Active 2023 [facility] 4 15:13:41 Anxiety 95148135 Active 2023 [facility] 4 15:13:54 Insomnia 183244990 Active 2023 [facility] 4 15:14:23 Hyperlipide gabby 63833986 Active 2023 [facility] 4 15:14:58 Essential hypertensio n 51507820 Active 2023 [facility] 4 15:16:04 Chronic depression 107861008 Active 2023 [facility] 4 15:16:55 Carpal tunnel syndrome of left wrist 2100994505863 02 Active 2023 CLARISSE ALBA PA-C [address] [place] [address], [phone], [facility] 4 13:08:21 Pain of left wrist 2455933120051 02 Active 2023 Aspen Damian [facility] 4 13:44:50 Problem Notes None recorded. Procedures Surgical History Date Name Laterality Status Provider Name and Address Organization Details Recorded Time 12/23/19 24 CO Operative Report completed Ankur Gardiner MD [address] [place] [address], [phone], [facility] 12/24/2023 06:08:35 12/23/19 24 SC Anes PostOp Pain Up Ext Nerve Block completed Deangelo Alaniz MD [address] [place] [address], [phone], [facility] 12/23/2023 13:33:18 12/23/19 24 arthrostomy completed [facility] 02/12/2024 16:28:29 12/23/19 24 Carpal tunnel surgery completed [facility] 02/12/2024 16:28:49 Colonoscopy with biopsy completed Not Available Health Note 11/16/2023 12:02:29 Partial hysterectomy completed Not Available Health Note 11/16/2023 12:02:29 Imaging Results None recorded. Procedure Notes None recorded. Medical Equipment None Reported. Allergies Allergen ID Allergen Name Allergen Category Reaction Reaction Severity Criticality Documentation Date Start Date Code Code System Note Provider Name and Address Organization Details Recorded Time 316473 Substance with sulfonami de structure and antibacte rial mechanism of action (substanc e) medicatio n rash Not available Not available 07/13/20232016 65461 8003 SNOMED React ion: Rash; Not Available [facility] 22:36:28 Medications Name Sig Start Date Stop [...] Updated DateTime 07/08/2024 160.02 cm 27.2 kg/m2 14285.51 [facility] 07/08/2024 11:21:21 Date Recorded Body height Body mass index (BMI) Body weight Provider Name and Address Organization Details Last Updated DateTime 09/16/2024 160.02 cm 27.2 kg/m2 83386.51 [facility] 09/16/2024 10:55:43 Social History Question Answer Notes LastModified by Organizat ion Details LastModified Time Tobacco Smoking Status Never [facility] 07/08/2024 11:21:28 Do You Have An Advance [...] Do You Have A Medical Power Of Histotechnologist? No [email or web address] Information not available 11/16/2023 What Was The Date Of Your Most Recent Tobacco Screening? 11/23/2023 [email or web address] Information not available 11/16/2023 What Is Your Relationship Status? [email or web address] Information not available 11/16/2023 Sex: Unknown Functional Status Question Answer Note LastModified by Organizat ion Details LastModified Time Do you use [...] available 2024 12:14:33 Medical History Condition Response Anxiety Disorder Y Diabetes Y Attention-deficit Hyperactivity Disorder N Bleeding Disorder N High Blood Pressure N Arthritis [...] SNOMED-CT Code Diagnosis ICD10 Code Diagnosis Note [id number] Ankur Gardiner MD [facility] [address] [address] 11/23/2023 09:45:00 11/23/2023 11:15:42 [id number] [facility] [address] [place] [address] 12/23/2023 11:06:58 01/01/2024 11:14:59 [id number] Ankur Gardiner MD [facility] [place]) [address] [place] [address], 2nd [place] [address] 12/23/2023 11:06:59 12/31/2023 08:38:42 Osteoarthritis of first carpometacarpal joint of left hand 3363269267 51550 M18.12 Carpal sweetie belen syndrome of left wrist 4817826103 20372 G56.02 [id number] CLARISSE ALBA PA-C [facility] [place] [address] [place] [address] 01/06/2024 12:07:29 01/06/2024 14:34:18 Osteoarthritis of first carpometacarpal joint of left hand 3774224084 95838 M18.12 Follow-up status 8628724 05 Z47.1 History of arthroplasty of finger of left hand 5256131737 008082 Z96.692 Renewal of prescription 824437794 Z76.0 [id number] Ankur Gardiner MD [facility] [place]) [address] [place] [address] 02/03/2024 12:05:17 02/03/2024 16:36:21 [id number] Michell Jackson, OTR [address] [facility] OT ([place]) [address] [place] [address] 02/03/2024 12:40:24 02/03/2024 15:37:16 Osteoarthritis of first carpometacarpal joint of left hand 3901291743 46258 M18.12 [id number] CLARISSE ALBA PA-C [facility] [place]) [address] [place] [address] 02/09/2024 09:14:49 02/09/2024 10:03:22 Osteoarthritis of first carpometacarpal joint of left hand 8001272486 08699 M18.12 Pain in left thumb 55048 78753 117759 M79.645 Postoperative visit 1836 92071 Z48.89 Postoperative pain 46996 9007 G89.18 [id number] Ankur Gardiner MD [address] [facility] [place] [address] [place] [address] 03/28/2024 11:32:11 03/28/2024 13:58:07 Pain in left thumb 6819508397 944767 M79.645 History of artificial joint 607924472 Z96.692 [id number] CLARISSE ALBA PA-C [facility] [place]) [address] [place] [address] 05/06/2024 12:18:22 05/06/2024 13:37:59 Pain in left thumb 9043547924 940686 M79.645 [id number] Ankur Gardiner MD [address] [facility] ([place]) [address] [place] [address] 05/19/2024 15:59:09 05/20/2024 18:27:33 Pain in left thumb 6520824557 207194 M79.645 History of artificial joint 063362741 Z96.692 [id number] Ankur Gardiner MD [address] [facility] ([place]) [address] [place] [address],[address] [place] [address] 06/30/2024 15:05:59 07/01/2024 18:23:24 History and physical examination, follow-up 782099523 Z09 History of artificial joint 191296531 Z96.692 [id number] Vero Pereira MD [facility] [place] ([place]) [address] [place] [address] 07/08/2024 11:04:12 07/08/2024 17:16:58 Procedure 67598613 Z41.1 Disorder o f skin and/or subcutaneous tissue 64942835 L98.8 [id number] Vero Pereira MD [facility] ([place]) [address] [place] [address] 09/16/2024 10:32:07 09/16/2024 11:55:19 Health Concerns Section Related Observation LastModified by Organization Detai ls LastModified Time None Recorded Concern Status LastModified by Organization Details LastModified Time None Recorded Advance Directives Directive Y: Payers Insurance Date Sequence Insurance Name Policy Number Policy Lentz Covered Member ID Lentz Member ID Guarantor Name 09/13/2024 1 [employer] (MEDICARE REPLACEMENT/ ADVANTAGE - PPO) [id number] 1 Francesca Patelpra [id number] Lexa Alepra 07/13/2024 COSMETIC SELF PAY Francesca White Alepra [id number] Lexa Alepra Notes Date Note Type Note Provider Name and Address Organization Details Recorded Time 4 text/html Francesca Olvera a 78 year oldfemalepresenting for care.Francesca returns for followup after left thumb metacarpal joint arthroplasty 5 months ago. She does feel her pain in general is improved after her surgery. She feels her strength is improving over time. She was very active over the past several weeks and had some increasing pain in her thumb. She was seen by my physician restaurant assistant, Clarisse, and she was instructed to wear a splint for 2 weeks except for light activities. She does feel this has helped reduce her discomfort somewhat. Ankur Gardiner MD [address] [place] [address], [address], [facility] 05/23/2024 07:04:02 5 text/html Francesca returns [...] for care. Ankur Gardiner MD [address] [place] [address], [address], [facility] 07/06/2024 20:44:03 OBGyn Episode No OBEpisode recorded.
--- OUTSIDE RECORDS SUMMARY | 2024-12-15 14:54 | XMS_ITS | Encounter Summary ---
Author Organization [facility] Address [address] [place] [address] Care Team Providers Care Pond Worker Name Role Phone Godwin Ku MD Primary Care Provider [phone] Yamil Kee MD Unavailable [phone] Valery Dias [facility]- Unavailable [phone] Encounter Details Date Type Department Care Team (Late st Contact Info) Description 12/14/2024 12:00 PM T Hospital Encounter [facility] Radiation Oncology - [place] [address] [place] [address] Kehinde Ruiz MD [address] [place], [place] [id number] Social History Tobacco Use Types Packs/Day Years Used Date Smoking Tobacco: Former Cigarettes Q uit: 2020 Smokeless Tobacco: Never Comments No Sex and Gender Information Value Date Recorded Sex Assigned at Not on file Legal Sex 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 CONTROL CRANE OPERATOR Activ e * Do you have serious [...] Info) Description 12/19/2024 11:30 AM CDT Appointment [facility] Radiation [address] [address] Kehinde Ruiz MD [address] [place] [address] 12/20/2024 12:00 PM CDT Appointment [address] [address] Kehinde Ruiz MD [address] [place] [address] documented as of this encounter Goals Goal [...] on filedocumented in this encounter Care Teams Pond Worker Relationship Specialty Start Date End Date Godwin Ku MD [address] [place] [id number] PCP - General INTERNAL MEDICINE 12/09/18 Yamil Kee MD [address] [place] [address] INTERVENTIONAL CARDIOLOGY 10/01/23 Valery Dias ANP- [address] [place] [address] Nurse Practitioner NURSE PRACTITIONER ADULT HEALTH 10/01/23 documented as of this encounter
== END 2024-12-15 14:50 | disposition home or self-care (01) ==
LOC: CHSIMG 14:52
PROVIDERS: PCP Internal Medicine; Visit Provider Internal Medicine
DX: M25.512 Pain in left shoulder (principal); M19.012 Primary osteoarthritis, left shoulder
CPT/HCPCS: 73221

== ENCOUNTER 2025-03-07 13:45 | Outpatient (RCR) | payer MEDICARE, SELFPAY ==
--- NOTE | 2025-03-07 15:36 | OPREHPOC ---
Outpatient Therapy Plan of Care This is a Multidisciplinary Plan of Care that may contain components documented by all disciplines (PT, OT, and ST.) PT Problem 1 PT Problem #1 Knowledge Deficit PT Goal 1 Goal / Goal Update The patient will be independent in a home exercise program. Target Visit 2 PT Problem 2 PT Problem #2 Pain PT Goal 1 Goal / Goal Update The patient will report a reduction in L UE pain to 5/10 or less. Target Visit 6 PT Goal 2 Goal / Goal Update The patient will report no greater than 3/10 left shoulder pain with return to lifting light items. Target Visit 24 PT Problem 3 PT Problem #3 Impaired Range of Motion PT Goal 1 Goal / Goal Update The patient will demonstrate left shoulder flexion AROM to at least 140 degrees to improve overhead reaching. The patient will demonstrate left shoulder ER to C7 to improve ability to bathe and groom the back of the head. The patient will demonstrate full left elbow and wrist AROM. The patient will demonstrate 60 degrees of bilateral cervical AROM to improve safety with driving. Target Visit 24 PT Problem 4 PT Problem #4 Impaired Functional Mobility PT Goal 1 Goal / Goal Update The patient will demonstrate 50% or less self perceived disability per the Quick DASH questionnaire. The patient will demonstrate left salesperson burial plots strength of 20+ lbs to improve salesperson burial plots for ADLs. The patient will be able to lift 3# overhead for 10 repetitions to improve ability to put away dishes in overhead cabinets. Target Visit 24 PT Problem 5 PT Problem #5 Impaired Strength PT Goal 1 Goal / Goal Update The patient will demonstrate at least 4/5 left shoulder, elbow, and wrist strength to perform ADLs. Target Visit 24
--- NOTE | 2025-03-07 15:36 | PTOPEVAL1 ---
Assessment and note entered by Ayse Rodriguez, PT Evaluation Information Assessment Status Evaluation ICD-10 Condition Codes (PT) Radiculopathy, cervical M54.13,Pain in right shoulder M25.511,Pain in left shoulder M25.512, Encounter for other orthopedic aftercare Z47.89, Aftercare following joint replacement surgery Z47. 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 She reports she has been having a lot of pain around the left shoulder. She has also been having shooting pain in her left neck to her upper back as well as in the left hand. She also has tingling in her left fingertips and has not been able to move the left arm or hand. She just started to be able to move her fingers recently. She reports Dr. Mosqueda told her she has a pinched nerve in her neck . She has been sleeping in a recliner and using a sling. She has used heat and ice for pain as well as a muscle relaxer and gabapentin for pain relief . She has not been sleeping well due to her pain and nerve symptoms. Reported Pain Level Pain Score 10: Self Report Assessment PT Clinical Summary Francesca Bustamante presents 3 weeks s/p left reverse total shoulder arthroplasty. She is also demonstrating cervical nerve root impingement and radiculopathy. She has difficulty moving the left arm even at the level of her wrist and hand. She has been having constant L shoulder, neck, upper back, and elbow pain as well as numbness and tingling in her entire left hand. She has difficulty sleeping or trying to relax due to symptoms. She demonstrates weakness in the left distal UE, decreased AROM in the left wrist and elbow, decreased left shoulder active and passive ROM, decreased left cervical AROM, and radiating pain from the cervical spine. She will benefit from skilled PT to address these limitations. Plan of Care Interventions Electrical Stimulation,Hot Pack/Cold Pack,Manual Therapy,Mechanical Traction,Neuro Re-education, Patient/Caregiver Education,Therapeutic Activities ,Therapeutic Exercise,Self-Care/Home Management PT Services Indicated Yes Treatment Frequency and 2 times a week for 12 visits Duration These treatments will address the objective and functional deficits as defined above. The patient will be advanced safely and appropriately in order for the patient to progress towards his/her prior level of function. Additional exercises will be introduced and as well as a comprehensive home exercise program upon discharge, if needed, ?to ensure carryover of functional gains achieved in the clinic. This treatment plan has been reviewed and agreement upon by the patient.
--- NOTE | 2025-04-10 08:51 | OPREHPOC ---
Outpatient Therapy Plan of Care This is a Multidisciplinary Plan of Care that may contain components documented by all disciplines (PT, OT, and ST.) PT Problem 1 PT Problem #1 Knowledge Deficit PT Goal 1 Goal / Goal Update The patient will be independent in a home exercise program. Target Visit 2 Progress Met PT Problem 2 PT Problem #2 Pain PT Goal 1 Goal / Goal Update The patient will report a reduction in L UE pain to 5/10 or less. Target Visit 6 Progress Not Met PT Goal 2 Goal / Goal Update The patient will report no greater than 3/10 left shoulder pain with return to lifting light items. Target Visit 24 Progress Not Met PT Problem 3 PT Problem #3 Impaired Range of Motion PT Goal 1 Goal / Goal Update The patient will demonstrate left shoulder flexion AROM to at least 140 degrees to improve overhead reaching. The patient will demonstrate left shoulder ER to C7 to improve ability to bathe and groom the back of the head. The patient will demonstrate full left elbow and wrist AROM. The patient will demonstrate 60 degrees of bilateral cervical AROM to improve safety with driving. Target Visit 24 Progress Not Met PT Problem 4 PT Problem #4 Impaired Functional Mobility PT Goal 1 Goal / Goal Update The patient will demonstrate 50% or less self perceived disability per the Quick DASH questionnaire. The patient will demonstrate left deckhand crab boat strength of 20+ lbs to improve deckhand crab boat for ADLs. The patient will be able to lift 3# overhead for 10 repetitions to improve ability to put away dishes in overhead cabinets. Target Visit 24 Progress Not Met PT Problem 5 PT Problem #5 Impaired Strength PT Goal 1 Goal / Goal Update The patient will demonstrate at least 4/5 left shoulder, elbow, and wrist strength to perform ADLs. Target Visit 24 Progress Not Met
--- NOTE | 2025-04-10 08:51 | PTOPPROG ---
Assessment and note entered by JT File, PT Evaluation Information Assessment Status Progress ICD-10 Condition Codes (PT) Radiculopathy, cervical M54.13,Pain in right shoulder M25.511,Pain in left shoulder M25.512, Encounter for other orthopedic aftercare Z47.89, Aftercare following joint replacement surgery Z47. 1 Other ICD-10 Condition Codes ( M54.12, M62.838, G89.18, Z96.619 PT) Onset 02/14/25 Subjective Information patient reports she was in the car recently for several hours riding to a , and now her arm is very sore and painful. she reports she still is unable to lift and move the L arm functionally. she reports she was told by her surgeon that the arthritis in the shoulder was really bad, and it will take a long time for the nerves to come back. Assessment PT Clinical Summary mrs. house presents to skilled PT for her 10th skilled therapy visit. she continues to display deficits in active and passive rom of the L shoulder. she is considerably more guarded and tight today after spending hours riding around in a car. she reports the surgeon is aware of the weakness in the L shoulder and difficulty with rehab. she would benefit from continued skilled PT to address her objective/functional deficits and return to her prior level functional activity performance/quality of life. Plan of Care Interventions Electrical Stimulation,Hot Pack/Cold Pack,Manual Therapy,Mechanical Traction,Neuro Re-education, Patient/Caregiver Education,Therapeutic Activities ,Therapeutic Exercise,Self-Care/Home Management PT Services Indicated Yes Treatment Frequency and continue skilled PT 2x weekly for 14 more visits Duration These treatments will address the objective and functional deficits as defined above. The patient will be advanced safely and appropriately in order for the patient to progress towards his/her prior level of function. Additional exercises will be introduced and as well as a comprehensive home exercise program upon discharge, if needed, ?to ensure carryover of functional gains achieved in the clinic. This treatment plan has been reviewed and agreement upon by the patient.
--- NOTE | 2025-04-26 17:57 | OPREHPOC ---
Outpatient Therapy Plan of Care This is a Multidisciplinary Plan of Care that may contain components documented by all disciplines (PT, OT, and ST.) PT Problem 1 PT Problem #1 Knowledge Deficit PT Goal 1 Goal / Goal Update The patient will be independent in a home exercise program. Target Visit 2 Progress Met PT Problem 2 PT Problem #2 Pain PT Goal 1 Goal / Goal Update The patient will report a reduction in L UE pain to 5/10 or less. Target Visit 6 Progress Not Met PT Goal 2 Goal / Goal Update The patient will report no greater than 3/10 left shoulder pain with return to lifting light items. Target Visit 24 Progress Not Met PT Problem 3 PT Problem #3 Impaired Range of Motion PT Goal 1 Goal / Goal Update The patient will demonstrate left shoulder flexion AROM to at least 140 degrees to improve overhead reaching. The patient will demonstrate left shoulder ER to C7 to improve ability to bathe and groom the back of the head. The patient will demonstrate full left elbow and wrist AROM. The patient will demonstrate 60 degrees of bilateral cervical AROM to improve safety with driving. Target Visit 24 Progress Not Met PT Problem 4 PT Problem #4 Impaired Functional Mobility PT Goal 1 Goal / Goal Update The patient will demonstrate 50% or less self perceived disability per the Quick DASH questionnaire. The patient will demonstrate left route clerk strength of 20+ lbs to improve route clerk for ADLs. The patient will be able to lift 3# overhead for 10 repetitions to improve ability to put away dishes in overhead cabinets. Target Visit 24 Progress Not Met PT Problem 5 PT Problem #5 Impaired Strength PT Goal 1 Goal / Goal Update The patient will demonstrate at least 4/5 left shoulder, elbow, and wrist strength to perform ADLs. Target Visit 24 Progress Not Met
--- NOTE | 2025-04-26 17:57 | PTOPPROG ---
Assessment and note entered by Ayse Rodriguez, PT Evaluation Information Assessment Status Progress ICD-10 Condition Codes (PT) Radiculopathy, cervical M54.13,Pain in right shoulder M25.511,Pain in left shoulder M25.512, Encounter for other orthopedic aftercare Z47.89, Aftercare following joint replacement surgery Z47. 1 Other ICD-10 Condition Codes ( M54.12, M62.838, G89.18, Z96.619 PT) Onset 02/14/25 Subjective Information Francesca reports her left shoulder was not very painful until she fell 2 weeks ago. She now notes pain to the touch at the front of her shoulder. She does note difficulty moving her left arm and has pain if she tries to raise the left arm. She feels the strength in her lower arm is improving and she can hold a small plate now. She has not dropped items recently like she did initially after surgery. She reports she still is unable to lift and move the L arm functionally. Assessment PT Clinical Summary Francesca Bustamante presents to skilled PT for her 16th skilled therapy visit. She is reporting improved ability to hold items but still has difficulty using the left arm for daily activities. She can make a small fist now but still struggles to contract management specialist well. She did have a fall on her left shoulder approximately 2 weeks ago and has been having more pain since then. She continues to demonstrate deficits in active and passive RO of the L shoulder, elbow, wrist, and hand. She has tenderness over the anterior left shoulder and has guarding with PROM. She has not been able to tolerate any strengthening. She reports the surgeon is aware of the weakness in the L shoulder and difficulty with rehab. She will see her surgeon on 04/27/25. Plan of Care Interventions Electrical Stimulation,Hot Pack/Cold Pack,Manual Therapy,Mechanical Traction,Neuro Re-education, Patient/Caregiver Education,Therapeutic Activities ,Therapeutic Exercise,Self-Care/Home Management PT Services Indicated Yes Treatment Frequency and continue skilled PT 2x weekly for 12 more visits Duration These treatments will address the objective and functional deficits as defined above. The patient will be advanced safely and appropriately in order for the patient to progress towards his/her prior level of function. Additional exercises will be introduced and as well as a comprehensive home exercise program upon discharge, if needed, ?to ensure carryover of functional gains achieved in the clinic. This treatment plan has been reviewed and agreement upon by the patient.
== END 2025-06-05 23:59 | disposition home or self-care (01) ==
LOC: CHSPT 13:45
PROVIDERS: Visit Provider Orthopaedic Surgery Sports Medicine
DX: M54.12 Radiculopathy, cervical region (principal); M62.838 Other muscle spasm; M25.511 Pain in right shoulder; M25.512 Pain in left shoulder; G89.18 Other acute postprocedural pain; Z96.619 Presence of unspecified artificial shoulder joint
CPT/HCPCS: 97014; 97110; 97140; 97162; G0283

== ENCOUNTER 2025-04-08 10:49 | Outpatient (CLI) | payer MEDICARE, SELFPAY ==
--- OUTSIDE RECORDS SUMMARY | 2020-01-17 | XMS_ITS | Encounter Summary ---
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 Name Role Phone Unavailable Primary Care Provider Unavailabl e Reason for Visit * Diagnostic Imaging (Routine) - Closed Specialty Diagnoses / Procedures Referred By oYlanda mendoza Referred To Contact Diagnoses Abnormal finding on breast imaging Procedures Breast Imaging US Outside Reference Jen Hoover MD PhD [address] [employer] [facility] [phone] [place] [address] Phone: tel: fax: Referral ID Status Reason Start Date Expiration Date Visits Re quested Visits Authorized [id number] Closed 08/29/2022 09/28/2023 1 1 Encounter Details Date Type Department Care Team ([facility] st Contact Info) Description 01/17/2020 Hospital Encounter [facility] [address] [place] [id number] Social History Tobacco Use Types Packs/Day Years Used Date Smoking Tobacco: Never Personal Safety Answer Date Recorded Getting School Help Needed Not on file 08/28 Comments No Sex and Gender Information Value Date Recorded Sex Assigned at Not on file 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 Gender Identity Not on file Sexual Orientation Not on file documented as of this encounter Plan of Treatment Not on file documented as of this encounter Procedures Procedure Name Priority Date/Time Associated Diagnosis Comments BREAST IMAGING US OUTSIDE REFERENCE Schedule Routine, Read Routine (OP Routine) 01/17/2020 12:00 AM CDT Abnormal finding on breast imaging documented in this encounter Results * Breast Imaging US Outside Reference (01/17/2020 12:00 AM CDT) Impressions [facility]MO[facility] - 08/29/2022 11:00 AM CDT These images are for Reference purposes only and have not been reviewed by [facility] Radiology. There will be no report generated by a [facility] Radiologist. Narrative [facility] - 08/29/2022 11:00 AM CDT EXAMINATION: Images For Reference Purposes Only us Jen Hoover MD PhD IMG MAMMO PROCEDURES Final Result [facility] documented in this encounter Visit Diagnoses Not on filedocumented in this encounter
--- OUTSIDE RECORDS SUMMARY | 2025-04-08 10:53 | XMS_ITS | Clinical Summary ---
Author Organization [facility] Address [address] [place] [address] Care Team Providers Care Appeals Representative Name Role Phone Godwin Ku MD Primary Care Provider + [phone] Allergies Active Allergy Reactions Criticality Noted Date [...] Surgery Date Site/Laterality Comments ROTATOR CUFF REPAIR [phone] COLON SURGERY 06/15/2012 - 06/14/2013 THUMB SURGERY 06/15/1989 - 06/14/1990 RECONSTRUCTION SOFT TISSUE TOE 06/15/1989 - 06/14/1990 BREAST BIOPSY 06/15/1988 - 06/14/1989 Right BREAST BIOPSY 09/22/2022 Left Medical History Medical History Date Comments Depression Type 2 diabetes mellitus Arthritis Family History Medical History Relation Name [...] on file Legal Sex Female 2:42 AM [employer] Gender Identity Not on file Sexual Orientation [...] Well Visit 65+ 12/29/2012 Influenza Vaccine (#1) 2025 , 02/13/2019, 02/02/2019, Additional history exists DTaP/Tdap/Td [...] compared to prior imaging studies performed at [facility] on 01/24/2021 and 09/18/2022. There are scattered [...] compared to prior imaging studies performed at [facility] on 01/24/2021 and 09/18/2022. There are scattered [...] Most Recently Relevant to Health Maintenance Insurance [facility] MEDICARE UHC MEDICARE ADVANTAGE [employer] MEDICARE Care Teams Appeals Representative Relationship Specialty Start Date End Date Godwin Ku MD [address] [place] [address] PCP - General Internal Medicine 08/01/20
--- OUTSIDE RECORDS SUMMARY | 2025-04-08 10:53 | XMS_ITS | Patient Health Record ---
Author Organization [facility] Address [address] [facility] [address] [place] [address] Care Team Providers Care Shank Cementer Hand Name Role Phone Godwin Ku MD Primary Care Provider Micki Schuler Unavailable [phone] Allergies Allergen (clinical drug ingredient) Drug/Non Drug Allergy documented on EMR Reaction Allergy Type Onset Date Status Substance with sulfonamide structure and antibacterial mechanism of action (substance) SULFA (SULFONAMIDE ANTIBIOTICS) (uncoded) Unknown Allergy 09/28/2023 Active Results Component Value Reference Range Flag Notes Benzodiazepines Reviewed date:11/11/2024 12:15:34 PM Interpretation: Performing Lab:[address] [place] [address], Director - [id number] Notes/Report: An exception occurred while processing this report and so it has incomplete data. Please contact [employer] for assistance. Medicated Consistent Medicated Consistent Not [...] NEGATIVE 20.0 ng/mL Hydroxyalprazolam 603.5 20.0 ng/mL POSITIVE Alprazolam 136.3 20.0 ng/mL POSITIVE PDF Report CE_OUT_RAW_CO MMON_SRC_ORU Validity Testing Reviewed date:11/11/2024 12:15:45 PM Interpretation: Performing Lab: Notes/Report: Not Medicated Consistent Not Medicated Consistent Not Medicated Consistent Not Medicated Consistent Specific [place] 1.014 1.003 - 1.030 pH 7.0 3.0 - 10.9 Oxidants -10 200 g/mL Creatinine 57.9 20.0 - 300.0 mg/dL UDT Reviewed date:08/11/2024 10:15:30 AM Interpretation: Performing Lab: Notes/Report: Amphetamine (AMP) NEG 0 - 1000 ng/ml Buprenorphine (BUP) NEG 0 - 10 ng/ml Oxazepam (BZO) POS 0 - 300 ng/ml Cocaine (KELSIE) NEG 0 - 300 ng/ml Methamphetamine (mAMP) NEG 0 - 300 ng/ml Methylenedioxymethamphetamin e (MDMA) NEG 0 - 500 ng/ml Morphine (MOP) NEG 0 - 25 ng/ml Methadone (MTD) NEG 0 - 300 ng/ml Oxycodone (OXY) NEG 0 - 300 ng/ml THC NEG 0 - 50 ng/ml x NEH 0 - 1000 ng/ml x NEG 0 - 1000 ng/ml x NEG 0 - 300 ng/ml x NEG 0 - 300 ng/ml x NEG 0 - 300 ng/ml NEED PHYSICIAN SIGNATURE Reviewed date:08/23/2024 11:40:50 AM Interpretation: Performing Lab: Notes/Report: Validity Testing Reviewed date:08/22/2024 04:58:03 PM Interpretation: Performing Lab: Notes/Report: Not Medicated Consistent Not Medicated Consistent Not Medicated Consistent Not Medicated Consistent Specific [place] 1.021 1.003 - 1.030 pH 5.3 3.0 - 10.9 Oxidants -39 200 g/mL Creatinine 185.5 20.0 - 300.0 mg/dL Hydroxyalprazolam Reviewed date:08/22/2024 04:57:38 PM Interpretation: Performing Lab:[address] [place] [address], [address] [place] [address], Director - [id number] Notes/Report: An exception occurred while processing this report and so it has incomplete data. Please contact [employer] for assistance. Hydroxyalprazolam >800 20.0 POSITIVE Medicat ed Consistent PDF Report CE_OUT_RAW_CO MMON_SRC_ORU Alprazolam Reviewed date:08/22/2024 04:57:45 PM Interpretation: Performing Lab: Notes/Report: Alprazolam 394.1 20.0 ng/mL POSITIVE Medicated Consistent UDT Reviewed date:11/03/2024 11:32:00 AM Interpretation: Performing Lab: Notes/Report: Amphetamine (AMP) NEG 0 - 1000 ng/ml Buprenorphine (BUP) NEG 0 - 10 ng/ml Oxazepam (BZO) POS 0 - 300 ng/ml Cocaine (KELSIE) NEG 0 - 300 ng/ml Methamphetamine (mAMP) NEG 0 - 300 ng/ml Methylenedioxymethamphetamin e (MDMA) NEG 0 - 500 ng/ml Morphine (MOP) NEG 0 - 25 ng/ml Methadone (MTD) NEG 0 - 300 ng/ml Oxycodone (OXY) NEG 0 - 300 ng/ml THC NEG 0 - 50 ng/ml x NEG 0 - 1000 ng/ml x NEG 0 - 1000 ng/ml x NEG 0 - 300 ng/ml x NEG 0 - 300 ng/ml x NEG 0 - 300 ng/ml Reason For Referral No Information Medications Medication SIG (Take, Route, Frequency, Duration) Notes Start Date End Date Status Prevnar 13 0.5 mL Suspension Intramuscular *Pick strength-form from [employer] for eRX* 09/28/2023 Active ALPRAZolam 0.5 MG Tablet 1 tablet Oral three times a day; Duration: 30 days 02/07/2025 Active OneTouch Delica Plus [id number] Miscellaneous 09/28/2023 Active Ozempic (1 MG/DOSE) 4 MG/3ML Solution Pen-injector Subcutaneous *Pick strength-form from [employer] for eRX* 09/28/2023 Active HYDROcodone-Acetamin ophen 10-325 MG Tablet 1 tablet as needed Orally every 6 hrs Active FLUAD 65YR UP(PF)45 MCG(15 MCGX3)/0.5 ML INTRAMUSCULAR SYRINGE *Reorder from [employer] for eRx and Interaction Alerts* 09/28/2023 Unknown ONETOUCH VERIO FLEX EACH MISCELLANEOUS *Reorder from [employer] for eRx and Interaction Alerts* 09/28/2023 Unknown OneTouch Verio Strip In Vitro 09/28/2023 Unknown Shingrix 50 mcg/0.5 mL Suspension Reconstituted Intramuscular 09/28/2023 Unknown HYDROcodone-Acetamin ophen 5-325 MG Tablet TAKE 1 TABLET BY MOUTH EVERY 6 HOURS NEEDED FOR PAIN Oral; Duration: 5 Days PRN Active traZODone HCl 100 MG Tablet 2 tablet every night and 1 tablet as needed at night Oral bedtime; Duration: 30 days Active Furosemide 20 MG Tablet Oral 09/28/2023 Active Escitalopram Oxalate 20 MG Tablet 1 tablet Oral Once a day; Duration: 90 days 02/07/2025 Active Atorvastatin Calcium 40 MG Tablet Oral 09/28/2023 Active traZODone HCl 100 MG Tablet 2 tablet every night and 1 tablet as needed at night Oral bedtime; Duration: 90 days 2 tablet every night and 1 tablet as needed at night 02/07/2025 Active Amitriptyline HCl 50 MG Tablet Oral 09/28/2023 Active Immunizations Vaccine Route Administration Date Status Comme [...] yrs and above Unknown 04/12/2015 Administered Novel [id number]-[id number], preservative free Unknown 05/28/2016 Administered Novel Vslynzjev-[id number], preservative free Unknown 03/31/2017 Administered Novel Pjundfvok-Z6X1-19, preservative free Unknown 03/16/2018 Administered Novel Gytwypuzw-M2T6-89, preservative free Unknown 02/02/2019 Administered Pfizer Biontech [...] History Observation Description Sex Assigned At Female Social History Miscellaneous: Social Info Question Answer Notes Advance Care Planning Are you your own decision-maker Yes Tobacco Use: Social Info Question Answer Notes Tobacco Control (Standard) Tobacco use: Nonsmoker Additional Details Category Social Info Options Details Migrated Social History Migrated Social History Alcohol Intake: None 10/14/2022,Tobacco Years: Never smoker 04/26/2018,Smoking Status: 0 06/29/2023 Problems Problem Type SNOMED Code ICD Code Onset Dates Problem Status W/U Status Risk Notes Problem Mild recurrent major depression (97092605) Major depressive disorder, recurrent, mild (F33.0) 4 Active confirmed Problem Generalized anxiety disorder (76360073) Generalized anxiety disorder (F41.1) 4 Active confirmed Problem Posttraumatic stress disorder (38744512) Post-traumatic stress disorder, chronic (F43.12) 4 Active confirmed Problem Insomnia disorder related to another mental disorder (62678336) Insomnia due to other mental disorder (F51.05) 4 Active confirmed Problem Long-term current use of drug therapy (542615350) Other prison (current) drug therapy (Z79.899) 4 Active confirmed Vital Signs Heart Rate 70 /min 02/07/2025 Respiratory Rate 16 /min 02/07/2025 Height-cm 162.56 cm 02/07/2025 Blood pressure diastolic 67 mm Hg 02/07/2025 Weight-kg 67.13 kg 02/07/2025 Height 64.00 in 02/07/2025 Blood pressure systolic 108 mm Hg 02/07/2025 Weight 148 lbs 02/07/2025 BMI 25.4 kg/m2 02/07/2025 Encounters Encounter Location Date [email or web address] [place] [id number] [place] [address] 05/05/2024 Micki Thery Major depressive disorder, recurrent, mild F33.0 ; Generalized anxiety disorder F41.1 ; Insomnia due to other mental disorder F51.05 ; Post-traumatic stress disorder, chronic F43.12 and Other superintendent container terminal (current) drug therapy Z79.[address] [facility] [address] [place] [address] 08/11/2024 Micki Thery Major depressive disorder, recurrent, mild F33.0 ; Generalized anxiety disorder F41.1 ; Insomnia due to other mental disorder F51.05 ; Post-traumatic stress disorder, chronic F43.12 and Other superintendent container terminal (current) drug therapy Z79.[address] [address] 11/03/2024 Micki Thery Encounter for screen ing for cardiovascular disorders Z13.6 ; Major depressive disorder, recurrent, mild F33.0 ; Generalized anxiety disorder F41.1 ; Insomnia due to other mental disorder F51.05 ; Post-traumatic stress disorder, chronic F43.12 ; Other superintendent container terminal (current) drug therapy Z79.899 and Negative depression screening Z13.[address] [address] 02/07/2025 Micki Thery Encounter for screen ing for cardiovascular disorders Z13.6 ; Major depressive disorder, recurrent, mild F33.0 ; Generalized anxiety disorder F41.1 ; Insomnia due to other mental disorder F51.05 ; Post-traumatic stress disorder, chronic F43.12 ; Other superintendent container terminal (current) drug therapy Z79.899 and Negative depression screening Z13.[address] [address] 08/07/2024 Micki Thery [address] [address] 08/08/2024 Micki Thery [address] [address] 10/04/2024 Micki Thery Assessments Encounter Date Diagnosis (ICD Code) Assessment Notes Treatment Notes Treatment Clinical Notes Section Notes 05/05/2024 Major depressive disorder, recurrent, mild (ICD-10 [...] patient under stress with illness presently and hearing care practitioner 11/03/2024 Encounter for screening for cardiovascular disorders [...] patient under stress with illness presently and hearing care practitioner 02/07/2025 Encounter for screening for cardiovascular disorders (ICD-10 [...] patient under stress with illness presently and hearing care practitioner 02/07/2025 Major depressive disorder, recurrent, mild (ICD-10 - [...] patient under stress with illness presently and hearing care practitioner 11/03/2024 Major depressive disorder, recurrent, mild (ICD-10 [...] patient under stress with illness presently and hearing care practitioner 08/11/2024 Generalized anxiety disorder (ICD-10 - F41.1) [...] patient under stress with illness presently and hearing care practitioner 05/05/2024 Generalized anxiety disorder (ICD-10 - F41.1) [...] patient under stress with illness presently and hearing care practitioner 11/03/2024 Generalized anxiety disorder (ICD-10 - F41.1) [...] patient under stress with illness presently and hearing care practitioner 02/07/2025 Generalized anxiety disorder (ICD-10 - F41.1) 1. [...] patient under stress with illness presently and hearing care practitioner 11/03/2024 Insomnia due to other mental disorder [...] patient under stress with illness presently and hearing care practitioner 02/07/2025 Insomnia due to other mental disorder (ICD-10 [...] patient under stress with illness presently and hearing care practitioner 08/11/2024 Post-traumatic stress disorder, chronic (ICD-10 - [...] patient under stress with illness presently and hearing care practitioner 05/05/2024 Post-traumatic stress disorder, chronic (ICD-10 - [...] patient will wait at this time 05/05/2024 Other superintendent container terminal (current) drug therapy (ICD-10 - Z79.899) 1. [...] will wait at this time 08/11/2024 Other prison (current) drug therapy (ICD-10 - Z79.899) 1. [...] patient under stress with illness presently and hearing care practitioner 11/03/2024 Post-traumatic stress disorder, chronic (ICD-10 - [...] patient under stress with illness presently and hearing care practitioner 02/07/2025 Post-traumatic stress disorder, chronic (ICD-10 - F43.12) [...] patient under stress with illness presently and hearing care practitioner 02/07/2025 Other prison (current) drug therapy (ICD-10 - Z79.899) 1. [...] patient under stress with illness presently and hearing care practitioner 11/03/2024 Other superintendent container terminal (current) drug therapy (ICD-10 - Z79.899) 1. [...] patient under stress with illness presently and hearing care practitioner 11/03/2024 Negative depression screening (ICD-10 - Z13.31) [...] patient under stress with illness presently and hearing care practitioner 02/07/2025 Negative depression screening (ICD-10 - Z13.31) 1. [...] patient under stress with illness presently and hearing care practitioner 08/11/2024 Other referral to the local chapter [...] patient under stress with illness presently and hearing care practitioner Plan Of Treatment Next Appt Details Provider Name:Micki Arcos , 05/10/2025 01:00:00 PM, [address] [facility] [address], [facility] [address], [place], [address], Insurance Providers Payer Name Payer Address Payer Phone Subscriber Number Group Number Insured Name Patient Relationship to Insured Coverage Start Date Coverage End Date [employer] Medicare Replacemen t/Advantag e - Ppo [address] [place] [address] [id number] MICHEL ELLIOTT Self - patient is the insured Medical (General) History Medical History History ICD Code Problems: Abnormal weight gain Generalized anxiety disorder History of SARS-CoV-2 Insomnia disorder related to another men marco disorder Long-term drug therapy Mild recurrent major depression Posttraumatic stress disorder Recurrent major depressive episodes, mod erate Weight gain , CT Custom Shoulder Lt Replac ement (02/03/2025) Severe glenohumeral osteoarthritis with large osteophyte formations. Mild acromioclavicular osteoarthritis. No acute fracture or dislocation. Humeral head mildly subluxed posteriorly and inferiorly relative to the glenoid. Joint space narrowing with near [id number]-yg-[id number] contact, erosive remodeling of posterior glenoid articular surface with mild retroversion. 1.9 cm ossific fragment in soft tissues anterior to subscapularis muscle/tendon, likely a loose body within subscapularis recess of glenohumeral joint. Large osteophyte formation from inferior articular surface of humeral head. Small to moderate osteophyte formation from posterior surface of anterior superior aspect of glenoid. Muscle bulk appears normal. Atherosclerotic calcifications within the aortic arch. USE ECHOCARDIOGRAM (04/07/20) Left ventricular systolic function normal; estimated ejection fraction 55-60%. Left ventricular diastolic function abnormal (grade 1 - impaired relaxation). Mild aortic regurgitation. Trace mitral, pulmonic, and tricuspid regurgitation. Left and right ventricular size normal; right ventricular function normal. Left and right atrial size normal. No pericardial effusion. Aorta and inferior vena cava normal. Aortic valve trileaflet, no stenosis. Mitral and tricuspid valves structurally normal. Pulmonic valve normal. Screening Mammogram Bilateral W Camilo (09/01/2023) Scattered areas of fibroglandular density. No suspicious abnormality in either breast. No significant changes from prior study. Findings in both breasts are benign. BI-RADS CATEGORY 2: Benign. Annual screening mammography recommended. Surgical History Surgery Date(Month/Year) Hysterectomy (42321) Cataract surgery (21922) Any surgical history Other
--- OUTSIDE RECORDS SUMMARY | 2025-04-08 10:53 | XMS_ITS | Encounter Summary ---
Author Organization [facility] Address [address] [facility] [place] [address] Care Team Providers Care Sleeve Maker Name Role Phone Godwin Ku MD Primary Care Provider [phone] Reason for Visit * Reason Comments Refill Request Encounter Details Date Type Department Care Team (Late st Contact Info) Description 04/07/2025 Refill [facility] [address] [place] [address], [facility] [place] [address] Evgeny Inman MD [address] [place] [address] OF ORTHOPEDIC SURGERY [place], [place] [id number] Refill Request Social History Tobacco Use Types Packs/Day Years Used Date Smoking Tobacco: Never Smokeless Tobacco: Never Alcohol Use Standard Drinks/Week Comments Never 0 (1 standard drink = 0.6 oz pur e alcohol) AUDIT-C Answer Date Recorded Q1: How often do you have a drink containing alc ohol? Monthly or less 02/14/2025 Q2: How many drinks containi ng alcohol do you have on a typical day when you are drinking? 1 or 2 02/14/2025 Q3: How often do you have si x or more drinks on one occasion? Never 02/14/2025 Overall Financial Resource Strain (CARDIA) Answe r Date Recorded How hard is it for you to pa y for the very basics like food, housing, medical care, and heating? Not hard at all 02/14/2025 [facility] Occupat ional Health - Occupational Stress Questionnaire Answer Date Recorded Do you feel stress - tense, restless, nervous, or anxious, or unable to sleep at night because your mind is troubled all the time - these days? Rather much 02/14/2025 Hunger Vital Sign Answer Date Recorded Within the past 12 months, y ou worried that your food would run out before you got the money to buy more. Never true 02/15/20 25 Within the past 12 months, t he food you bought just didn't last and you didn't have money to get more. Never true 02/14/2025 PRAPARE - Transportation Answer Date Re corded In the past 12 months, has l ack of transportation kept you from medical appointments or from getting medications? No 07/2024 In the past 12 months, has l ack of transportation kept you from meetings, work, or from getting things needed for daily living? Yes 02/14/2025 Housing Stability Vital Sign Answer Wally e Recorded In the last 12 months, was t here a time when you were not able to pay the mortgage or rent on time? No 02/14/2025 In the past 12 months, how m any times have you moved where you were living? 0 02/14/2025 At any time in the past 12 m [facility], were you homeless or living in a skilled nursing (including now)? No 02/14/2025 Comments Unknown Sex and Gender Information Value Date Recorded Sex Assigned at Not on file Legal Sex Female 2:48 PM CDT Gender Identity Not on file Sexual Orientation Not on file documented as of this encounter Functional Status * Is person deaf or have serious hearing difficulty? Answer Date of Assessment Author No 02/14/2025 5:29 PM ALEXANDRAT Sa ericka Kelly RN * Is person blind or have serious difficulty seeing? Answer Date of Assessment Author No 02/14/2025 5:29 PM CDT Sa ericka Kelly RN * Does person have serious difficulty walking/climbing stairs? Answer Date of Assessment Author No 02/14/2025 5:29 PM ALEXANDRAT Sa ericka Kelly RN * Does person have difficulty dressing/bathing? Answer Date of Assessment Author No 02/14/2025 5:29 PM ALEXANDRAT Sa ericka Kelly RN * Does person have difficulty doing errands alone? Answer Date of Assessment Author No 02/14/2025 5:29 PM Sa ericka Wilkes RN documented as of this encounter Mental Status * Does person have difficulty concentrating/remembering/making decisions? Answer Entry Date Author No 02/14/2025 5:29 PM Sa ericka Wilkes RN documented in this encounter Plan of Treatment Upcoming Encounters Date Type Department Care Team (Late st Contact Info) Description 04/27/2025 1:45 PM FIBERGLASS FABRICATOR Office Visit [facility] [address] [facility], [facility] [place] [address] Arlette Romero PA-C [address] [place] [address] documented as of this encounter Visit Diagnoses Diagnosis Acute post-operative pain documented in this encounter Care Teams Sleeve Maker Relationship Specialty Start Date End Date Godwin Ku MD [address] [place] [id number] PCP - General Internal Medicine 01/25/25 documented as of this encounter
--- OUTSIDE RECORDS SUMMARY | 2025-04-08 10:53 | XMS_ITS | Clinical Summary ---
Author Organization [facility] Address [address] [place] [address] Care Team Providers Care Anthropology Department Chair Name Role Phone Godwin Ku MD Primary Care Provider [phone] Source Comments [facility],non-owned Affiliates and Associated Physician Practices is amultiple site organization consisting of ambulatory clinics and hospital sitesin [place], [place], [place] and [place]. This disclosure is being madepursuant to the Care Everywhere program and may not contain all information available regarding this patient. Last updated 18.[facility] Allergies Active Allergy Reactions Criticality Noted Date Comments Skin Adhesives Skin Reactions High 02/15/2025 Develops burn-like rash Sulfa Antibiotics Unknown 05/08/2022 Sulfa Drugs Rash,Unknown Medium 09/10/2020 Medications * Be aware that medications may not be up to date on this document. Alwaysverify current medications with the patient. ALPRAZolam (Xanax) 0.5 MG tablet Take 1 (one) tablet by mouth 3 times daily Active amitriptyline (Elavil) 50 MG tablet Take 1 (one) tablet by mouth at bedtime Active atorvastatin (Lipitor) 40 MG tablet Take 1 (one) tablet by mouth once daily 024 Active Latisse 0.03 % solution Instill 1 drop into both eyes at bedtime 025 Active escitalopram (Lexapro) 20 MG tablet Take 1 (one) tablet by mouth once daily Active fluorouracil (Efudex) 5 % cream Apply to affected area 2 times daily 025 Active furosemide (Lasix) 20 MG tablet Take 1 (one) tablet by mouth once daily as needed Active OneTouch Verio test strip Use 1 (one) strip as directed 025 Active Lancets (ONETOUCH DELICA PLUS 33G EXTRA FINE LANCET) as directed 025 Active Ozempic, 2 MG/DOSE, 8 MG/3ML pen Inject 2 (two) mg subcutaneously every 7 days (once a week) 025 Active traZODone (Desyrel) 100 MG tablet Take 1 (one) tablet to 2 (two) tablets by mouth nightly as needed for Insomnia Active meloxicam (Mobic) 15 MG tablet Take 1 (one) tablet by mouth once daily 30 tablet 3 025 Active bacitracin ointment Apply to affected area 2 times daily 025 Active iron polysaccharides (Niferex 150) 150 MG capsule Take 1 (one) capsule by mouth once daily 100 capsule 025 Active HYDROcodone-aceta minophen ([place]) 5-325 MG tabletIndications :Chronic left shoulder pain Take 1 (one) tablet by mouth every 6 hours as needed for Pain 20 tablet 025 Active gabapentin (Neurontin) 300 MG capsuleIndication s:Cervical radiculopathy,Cer vical paraspinal muscle spasm,Periscapula r pain of right shoulder,Acute post-operative pain,Pain of left shoulder after shoulder replacement Take 1 (one) capsule by mouth 3 times daily 90 capsule 1 025 Active methylPREDNISolon e (Medrol Dosepak) 4 MG tablet Take 1 (one) tablet by mouth as directed Take as directed by mouth per package instructions. 21 tablet 025 Active cyclobenzaprine (Flexeril) 5 MG tabletIndications :Cervical radiculopathy,Cer vical paraspinal muscle spasm,Periscapula r pain of right shoulder,Acute post-operative pain,Pain of left shoulder after shoulder replacement TAKE 1 TABLET BY MOUTH EVERYDAY AT BEDTIME 60 tablet 025 Active traMADol (Ultram) 50 MG tabletIndications :Acute post-operative pain TAKE 1 TABLET BY MOUTH EVERY 6 HOURS NEEDED FOR PAIN 25 tablet 025 Active cyclobenzaprine (Flexeril) 5 MG tabletIndications :Cervical radiculopathy,Cer vical paraspinal muscle spasm,Periscapula r pain of right shoulder,Acute post-operative pain,Pain of left shoulder after shoulder replacement Take 1 (one) tablet by mouth at bedtime 60 tablet 025 2024 Discontinued traMADol (Ultram) 50 MG tabletIndications :Acute post-operative pain Take 1 (one) tablet by mouth every 6 hours as needed for Pain 25 tablet 025 2024 Discontinued traMADol (Ultram) 50 MG tabletIndications :Acute post-operative pain TAKE 1 TABLET BY MOUTH EVERY 6 HOURS NEEDED FOR PAIN 25 tablet 025 2024 Discontinued Active Problems Problem Noted Date Diagnosed Date Shoulder pain, left 02/14/2025 Chronic left shoulder pain 02/14/2025 Osteoarthritis, localized, shoulder, left 2024 Atypical chest pain 01/13/2025 Controlled type 2 diabetes m ellitus without complication, without long-term current use of insulin 01/13/2025 Mixed hyperlipidemia 01/13/2025 SOB (shortness of breath) 01/13/2025 Insomnia related to another mental disorder 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 2023 Mild recurrent major depression 09/28/2023 Generalized anxiety disorder 09/28/2023 Posttraumatic stress disorder 09/28/2023 Coronary artery calcification seen on CT scan Syncope 11/28/2022 COVID-19 virus infection 06/06/2021 Rupture of biceps tendon 05/14/2009 Superior glenoid labrum lesion of shoulder 02/20 Encounters Date Type Department Care Team Description 04/07/2025 Refill [facility] [address] [place] [address] [phone] Evgeny Inman MD Refill Request 03/25/2025 Refill [facility] [address] [place] [address] [phone] Arlette Romero PA-C Refill Request 03/23/2025 Refill [facility] [address] [place] [address] [phone] Evgeny Inman MD Refill Request 03/09/2025 Orders Only [facility] [address] [place] [phone] Evgeny Inman MD Acute post-operative pain 03/01/2025 11:45 AM CDT Office Visit [facility] - Orthoped[facility] [address] [place] [phone] Arlette Romero PA-C Cervical radiculopathy (Primary Dx); Cervical paraspinal muscle spasm; Periscapular pain of right shoulder; Acute post-operative pain; Pain of left shoulder after shoulder replacement 03/01/2025 11:40 AM CDT - 03/01/2025 11:59 PM CDT Hospital Encounter [facility] DIAGNOSTIC RAD CSM [address] [place] [address]. 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 02/14/2025 10:29 AM CDT - 02/14/2025 1:05 PM CDT Surgery [facility][note 3] - [facility] [address] [place] [address] Evgeny Inman MD ARTHROPLASTY TOTAL SHOULDER (REVERSE) 02/14/2025 6:58 AM CDT - 02/15/2025 2:15 PM CDT Hospital Encounter [address] OR[facility] [address] [place] [address] Evgeny Inman MD Surgery Orthopedics Discharge Disposition: Home or Self Care 02/14/2025 Orders Only [facility] [address] [place] [phone] Evgeny Inman MD Osteoarthritis, localized, shoulder, left ; Left shoulder pain, unspecified chronicity; Chronic left shoulder pain 02/14/2025 Orders Only [facility] - Orthopedics [address] [place] [phone] Arlette Romero PA-C Osteoarthritis, localized, shoulder, left 02/10/2025 Travel 02/03/2025 10:37 AM CDT - 02/03/2025 11:59 PM CDT Hospital Encounter [facility] CAT SCAN [address] [place] [phone] Evgeny Inman MD Discharge Disposition: Home or Self Care 02/03/2025 Travel 01/25/2025 3:13 PM CDT - 01/25/2025 11:59 PM CDT Hospital Encounter [facility] LAB OP DRAW STATION [address] [place] [phone] Evgeny Inman MD Discharge Disposition: Home or Self Care 01/25/2025 3:02 PM CDT - 01/25/2025 3:12 PM CDT Hospital Encounter [facility] DIAGNOSTIC RAD OP [address] [place] [phone] Evgeny Inman MD Discharge Disposition: Home or Self Care 01/25/2025 2:21 PM CDT - 01/25/2025 3:01 PM CDT Hospital Encounter [facility] - Outside Imaging Discharge Disposition: Home or Self Care 01/25/2025 1:50 PM CDT Office Visit [facility] - Orthopedics [address] [place] [phone] Evgeny Inman MD Left shoulder pain, unspecified chronicity (Primary Dx); Diabetes mellitus due to underlying condition with hyperosmolarity without coma, without long-term current use of insulin (HCC); Preoperative testing 01/25/2025 Travel 01/18/2025 Orders Only [facility] [address] [place] [phone] Evgeny Inman MD Left shoulder pain, unspecified chronicity from Last 3 Months Immunizations Immunization Administration Dates Next Due CovCatapooolt primary monoval ent 12+ yr 0.3mL Purple cap 04/09/2021,08/29/2020,08/08/2020 FLU VACCINE QUAD IIV4 SPLIT 0.25 ML IM 03/31/2022,02/13/2019,03/15/2018 INFLUENZA A T0M0-57 VACCINE 02/02/2019,1 ,03/31/2017,2015 INFLUENZA VACCINE 02/20/2020, 8,03/31/2017,2015,04/12/2015,05/06/2011 INFLUENZA VACCINE, HIGH-DOSE , QUADR. (FLUZONE HIGH-DOSE QUADRIVALENT; 65Y+), 0.7 ML (HD-IIV4) 04/11/2013 PNEUMOCOCCAL PPSV23 08/08/2016,04/11/2013 Pneumococcal Pcv13 Conj 02/13/2019,02/02/2019, TDAP (7yrs+) 01/09/2020,05/06/2011 ZOSTER VACCINE, LIVE 03/11/2019,12/13/2018,04/11 Social History Tobacco Use Types Packs/Day Years Used Date Smoking Tobacco: Never Smokeless Tobacco: Never Tobacco Cessation:Counseling Given: Not Answered Alcohol Use Standard Drinks/Week Comments Never 0 [...] and heating? Not hard at all 02/14/2025 [facility] Occupat ional Health - Occupational Stress [...] any time in the past 12 m [facility], were you homeless or living in a fci (including now)? No 02/14/2025 Comments Unknown Sex and Gender Information Value Date Recorded Sex Assigned at Not on file Legal Sex Female 2:48 PM CDT Gender Identity Not on file Sexual Orientation Not on file Last Filed Vital Signs Vital Sign Reading Time Taken Comments Blood Pressure 99/42 02/15/2025 11:21 AM CDT Pulse 62 02/15/2025 11:21 AM CDT Temperature 36.8 C (98.3 F) 02/15/2025 11:21 AM CDT Respiratory Rate 16 02/15/2025 11:21 AM CDT Oxygen Saturation 96% 02/15/2025 11:21 AM CDT Inhaled Oxygen Concentration - - Weight 64.9 kg (143 lb) 02/14/2025 9:13 PM CDT Height 160 cm (5' 3) 02/14/2025 9:13 PM CDT Body Mass Index 25.33 02/14/2025 9:13 PM CDT Plan of Treatment Upcoming Encounters Date Type Department Care Team (Late st Contact Info) Description 04/27/2025 1:45 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 Office Visit [facility] - Orthopedics [facility] [place] [phone] Arlette Romero PA-C [address] [place] [address] Health Maintenance Due Date Last Done Comments BONE DENSITY TESTING 1945 HEPATITIS C SCREENING 12/25/1965 ZOSTER VACCINE (2 of 3) 05/06/2019 03/11/20 19, 12/13/2018, 04/11/2013 Respiratory Syncytial Virus (RSV) Vaccine Pt: or over 60 yrs (1 - 1-dose 75+ series) 12/29/2022 DEPRESSION SCREENING 06/15/2024 DIABETES - URINE PROTEIN SCREENING 06/15/2024 MEDICARE AWV CALENDAR YEAR 2024 DIABETES RETINOPATHY SCREENING 01/13/2025 DIABETES-FOOT EXAM WITH MONOFILAMENT 01/13/2025 COVID-19 VACCINE ( season) 2025 04/09/2021, 08/29/2020, 08/08/2020 INFLUENZA VACCINE (#1) 2025 2, 02/20/2020, 02/13/2019, Additional history exists DIABETES-HGB A1C 07/28/2025 01/25/2025, 06/06/2021 DIABETES-SERUM CREATININE 02/15/2026 02/15/2025, DTAP/TDAP/TD VACCINES (3 - Td or Tdap) 01/08/2030 01/09/2020, 05/06/2011 PNEUMOCOCCAL VACCINE 50+ Completed 019, 02/02/2019, 08/08/2016, Additional history exists HEPATITIS B VACCINE Aged Out No longe r eligible based on patient's age to complete this topic HIB VACCINE Aged Out No longer eligi ble based on patient's age to complete this topic HPV VACCINE Aged Out No longer eligi ble based on patient's age to complete this topic MENINGOCOCCAL (Group B) VACCINE SHARED DECISION-MAKING Aged Out No longer eligible based on patient's age to complete this topic MENINGOCOCCAL GROUPS A/C/Y/W VACCINE Aged Out No longer eligible based on patient's age to complete this topic Medical Devices Implanted Type Area Rn Oncology Clinical Device Identifier Shelf Expiration Date Model / Serial / Lot Sut Fxbridge Nabsb Tuberosity Repr Sys - Sna Implanted:Qty: 1 on 02/14/2025 by Evgeny Inman MD at [facility] Left: Shoulder [employer] 08/12/2029 AR-9517 / NA / [id number] Univers Revers Suturecup 33 +2 Left Implanted:Qty: 1 on 02/14/2025 by Evgeny Inman MD at [facility] Left: Shoulder [employer] 11/12/2029 AR-9502F- 33LNACPC / NA / [id number] [employer] Revers Modular Glenoid System Combination Humeral Insert 33 +3 / 36 Implanted:Qty: 1 on 02/14/2025 by Evgeny Inman MD at [facility] Left: Shoulder [employer] 10/12/2028 AR-9503-3 336-3 / NA / [id number] Cmpnt Glnd 30mm Mdlr Post Univers Revers - Sna Implanted:Qty: 1 on 02/14/2025 by Evgeny Inman MD at [facility] Left: Shoulder [employer] 03/14/2029 AR-9582-3 0 / NA / [id number] Bsplt Glnd 24mm Univers Revers +2mm 20d - Sna Implanted:Qty: 1 on 02/14/2025 by Evgeny Inman MD at [facility] Left: Shoulder [employer] 12/12/2028 AR-9580-2 420-2S / NA / [id number] Screw 5.5mm 20mm Lck Ashley Strl Bone - Sna Implanted:Qty: 1 on 02/14/2025 by Evgeny Inman MD at [facility] Left: Shoulder [employer] [id number] 09/12/2029 AR-9563-2 0 / NA / [id number] Screw 5.5mm 20mm Lck Ashley Strl Bone - Sna Implanted:Qty: 1 on 02/14/2025 by Evgeny Inman MD at [facility] Left: Shoulder [employer] [id number] 09/12/2029 AR-9563-2 0 / NA / [id number] Screw 5.5mm 24mm Lck Mdlr Glnd Bone - Sna Implanted:Qty: 1 on 02/14/2025 by Evgeny Inman MD at [facility] Left: Shoulder [employer] [id number] 10/12/2029 AR-9563-2 4 / NA / [id number] Screw 5.5mm 16mm Lck Ashley Strl Bone - Sna Implanted:Qty: 1 on 02/14/2025 by Evgeny Inman MD at [facility] Left: Shoulder [employer] [id number] 10/12/2029 AR-9563-1 6 / NA / [id number] Sphr Glnd 36mm 24mm +4mm Shldr Ltrlz - Sna Implanted:Qty: 1 on 02/14/2025 by Evgeny Inman MD at [facility] Left: Shoulder [employer] [id number] 06/14/2029 AR-9564-2 436-LAT / NA / [id number] Stem Hum Arthx [employer] Revers 6 Shldr - Sna Implanted:Qty: 1 on 02/14/2025 by Evgeny Inman MD at [facility] Left: Shoulder [employer] [id number] 04/14/2029 AR-9501-0 6P / NA / [id number] Procedures Procedure Name Priority Date/Time Associated Diagnosis Comments XR SHOULDER LEFT 2VW OR MORE Routine 03/01/2025 11:50 AM CDT Osteoarthritis, localized, shoulder, left CARDIAC RHYTHM STRIP ORDER 02/16/2025 4:59 PM CDT IMAGING/RADIOLOGY/X RAY RESULTS ORDER 02/16/2025 4:59 PM CDT FOLATE STAT 02/15/2025 8:44 AM CDT VITAMIN B12 STAT 02/15/2025 8:44 AM CDT FERRITIN STAT 02/15/2025 8:44 AM CDT IRON + TRANSFERRIN PANEL STAT 02/15/2025 8:44 AM CDT MAGNESIUM BLOOD STAT 02/15/2025 8:44 AM CDT PHOSPHORUS BLOOD STAT 02/15/2025 8:44 AM CDT BASIC METABOLIC PANEL (CALCIUM TOTAL) STAT 02/15/2025 8:44 AM CDT HGB HCT PANEL Timed 02/15/2025 4:58 AM CDT HGB HCT PANEL STAT 02/14/2025 6:24 PM CDT GLUCOSE - POINT OF CARE Routine 02/14/2025 2:02 PM CDT SC RECONSTR TOTAL SHOULDER IMPLANT 02/14/2025 10:36 AM CDT Special Needs 120 min, ARTHREX// ROZINA MURILLO CONFIRMED [phone] 02/08 LR PERIPHERAL BLOCK Routine 02/14/2025 10:00 AM CDT PERIPHERAL BLOCK Routine 02/14/2025 10:00 AM CDT GLUCOSE - POINT OF CARE Routine 02/14/2025 8:45 AM CDT EKG 12-LEAD STAT 02/14/2025 8:26 AM CDT Preop testing CT CUSTOM SHOULDER LT REPLCMNT Routine 02/03/2025 10:56 AM CDT Left shoulder pain, unspecified chronicity PTT Routine 01/25/2025 3:26 PM CDT Diabetes mellitus due to underlying condition with hyperosmolarity without coma, without long-term current use of insulin (HCC) Preoperative testing HEMOGLOBIN A1C Routine 01/25/2025 3:26 PM CDT Diabetes mellitus due to underlying condition with hyperosmolarity without coma, without long-term current use of insulin (HCC) Preoperative testing COMPREHENSIVE METABOLIC PANEL Routine 01/25/2025 3:26 PM CDT Diabetes mellitus due to underlying condition with hyperosmolarity without coma, without long-term current use of insulin (HCC) Preoperative testing CBC W AUTO DIFFERENTIAL Routine 01/25/2025 3:26 PM CDT Diabetes mellitus due to underlying condition with hyperosmolarity without coma, without long-term current use of insulin (HCC) Preoperative testing PT-INR Routine 01/25/2025 3:26 PM CDT Diabetes mellitus due to underlying condition with hyperosmolarity without coma, without long-term current use of insulin (HCC) Preoperative testing XR SHOULDER LEFT 2VW OR MORE Routine 01/25/2025 3:10 PM CDT Left shoulder pain, unspecified chronicity XR CHEST 2VW Routine 01/25/2025 3:10 PM CDT Diabetes mellitus due to underlying condition with hyperosmolarity without coma, without long-term current use of insulin (HCC) Preoperative testing from Last 3 Months Results * XR Shoulder Left 2Vw or More (03/01/2025 11:50 AM CDT) Only the most recent of2 resultswithin the time period is included. Anatomical Region Laterality Modality Upper Extremity Radiographic Tete ging 03/01/2025 12:0 1 PM CDT Narrative 03/01/2025 12:02 PM CDT PROCEDURE: XR SHOULDER LEFT 2VW OR MORE DATE/TIME OF EXAM: 03/01/2025 11:50 AM CLINICAL INFORMATION: None relevant/not provided if blank. Indication: M19.012: Osteoarthritis, localized, shoulder, left Additional History: COMPARISON: 01/25/2025. FINDINGS: Interval left shoulder arthroplasty. The hardware is unremarkable and no signs of loosening or break. No acute fractures are seen. No significant soft tissue swelling. > Interpreting Provider: Kesha Palafox MD on 03/01/2025 12:02 PM Procedure Note Kesha Palafox MD - 03/01/2025 PROCEDURE: XR SHOULDER LEFT 2VW OR MORE DATE/TIME OF EXAM: 03/01/2025 11:50 AM CLINICAL INFORMATION: None relevant/not provided if blank. Indication: M19.012: Osteoarthritis, localized, shoulder, left Additional History: COMPARISON: 01/25/2025. FINDINGS: Interval left shoulder arthroplasty. The hardware is unremarkable and no signs of loosening or break. No acute fractures are seen. No significant soft tissue swelling. > Interpreting Provider: Kesha Palafox MD on 2:02 PM us Arlette Romero PA-C DIAGNOSTIC IMAGING ORDERABL ES Final Result * CARDIAC RHYTHM STRIP ORDER (02/16/2025 4:59 PM CDT) Narrative 02/16/2025 4:59 PM CDT Ordered by an unspecified provider. us Scanned Document CARDIAC SERVICES ORDERABLES Americo ken Result - Final * IMAGING/RADIOLOGY/XRAY RESULTS ORDER (02/16/2025 4:59 PM CDT) Anatomical Region Laterality Modality Other Narrative 02/16/2025 4:59 PM CDT Ordered by an unspecified provider. us Scanned Document IMAGING Final Result * (ABNORMAL) BASIC METABOLIC PANEL (CALCIUM TOTAL) (02/15/2025 8:44 AM CDT) Glucose 137(H) 70 - 99 mg/dL 02/15/2025 9:36 AM CDT [facility] Sodium 142 136 - 145 mmol/L 02/15/2025 9:36 AM CDT [facility] Potassium 4.5 3.5 - 5.1 mmol/L 02/15/2025 9:36 AM CDT [facility] Chloride 111(H) 98 - 107 mmol/L 02/15/2025 9:36 AM CDT [facility] CO2 22 22 - 29 mmol/L 02/15/2025 9:36 AM CDT [facility] Calcium 8.1(L) 8.4 - 10.4 mg/dL 02/15/2025 9:36 AM CDT [facility] Anion Gap 9 6 - 16 mmol/L 02/15/2025 9:36 AM CDT [facility] BUN 13 7 - 26 mg/dL 02/15/2025 9:36 AM CDT [facility] Creatinine 0.76 0.57 - 1.11 mg/dL 02/15/2025 9:36 AM T [facility] eGFR by CKD-EPI 81(L) >=90 mL/min/1.7 3 m2 02/15/2025 9:36 AM T [facility] Comment:Estimated Glomerular Filtration Rate (eGFR) calculated using the CKD-EPI Creatinine Equation (2020), per the National Kidney Foundation and [place] [employer] Neph[employer] recommendations. Blood BLOOD SPECIMEN / Unknown Lab Venipuncture / Unknown 02/15/2025 8:44 AM CDT 02/15/2025 9:18 AM CDT Micki Rivera PA-C LAB - CHEMISTRY ORDERABL ES Final Result Performing Organization Address City/[facility]/ZIP Co de Phone Number [facility] [address] [place] [address] * PHOSPHORUS BLOOD (02/15/2025 8:44 AM CDT) Phosphorus 3.1 2.5 - 4.5 mg/dL 02/15/2025 9:36 AM CDT [facility] Blood BLOOD SPECIMEN / Unknown Lab Venipuncture / Unknown 02/15/2025 8:44 AM CDT 02/15/2025 9:18 AM CDT Micki Rivera PA-C LAB - CHEMISTRY ORDERABL ES Final Result [facility] [address] [place], [place] [id number] * MAGNESIUM BLOOD (02/15/2025 8:44 AM CDT) Magnesium 2.0 1.6 - 2.6 mg/dL 02/15/2025 9:36 AM CDT [facility] Blood BLOOD SPECIMEN / Unknown Lab Venipuncture / Unknown 02/15/2025 8:44 AM CDT 02/15/2025 9:18 AM CDT Micki Rivera PA-C LAB - CHEMISTRY ORDERABL ES Final Result Performing Organization Address City/[facility]/ZIP Co de Phone Number [facility] [address] [address] * FOLATE (02/15/2025 8:44 AM CDT) Folate 11.4 7.0 - 31.4 ng/mL 02/15/2025 10:08 AM CDT [facility] Blood BLOOD SPECIMEN / Unknown Lab Venipuncture / Unknown 02/15/2025 8:44 AM CDT 02/15/2025 9:18 AM CDT Micki Rivera PA-C LAB - CHEMISTRY ORDERABL ES Final Result Performing Organization Address [facility] de Phone Number [facility] [address] [place] [address] * VITAMIN B12 (02/15/2025 8:44 AM CDT) Vitamin B12 372 213 - 816 pg/mL 02/15/2025 10:08 AM CDT [facility] Blood BLOOD SPECIMEN / Unknown Lab Venipuncture / Unknown 02/15/2025 8:44 AM CDT 02/15/2025 9:18 AM CDT Micki Rivera PA-C LAB - CHEMISTRY ORDERABL ES Final Result Performing Organization Address City/[facility]/ZIP Co de Phone Number [facility] [address] [place] [address] * (ABNORMAL) IRON + TRANSFERRIN PANEL (02/15/2025 8:44 AM CDT) Iron 34(L) 40 - 150 ug/dL 02/15/2025 9:36 AM CDT [facility] Transferrin 214 174 - 382 mg/dL 02/15/2025 9:36 AM CDT [facility] TIBC Calculated 268 240 - 450 ug/dL 02/15/2025 9:36 AM CDT [facility] Iron Saturation % 13(L) 20 - 50 % 02/15/2025 9:36 AM CDT [facility] Blood BLOOD SPECIMEN / Unknown Lab Venipuncture / Unknown 02/15/2025 8:44 AM CDT 02/15/2025 9:18 AM CDT Micki Rivera PA-C LAB - CHEMISTRY ORDERABL ES Final Result [facility] [address] [id number] * FERRITIN (02/15/2025 8:44 AM CDT) Ferritin 137 5 - 204 ng/mL 02/15/2025 10:08 AM CDT [facility] Blood BLOOD SPECIMEN / Unknown Lab Venipuncture / Unknown 02/15/2025 8:44 AM CDT 02/15/2025 9:18 AM CDT Micki Rivera PA-C LAB - CHEMISTRY ORDERABL ES Final Result [facility] [address] [place] [address] * (ABNORMAL) HGB HCT PANEL (02/15/2025 4:58 AM CDT) Only the most recent of2 resultswithin the time period is included. Hemoglobin 8.9(L) 11.9 - 15.8 g/dL 02/15/2025 5:11 AM CDT [facility] Hematocrit 28.8(L) 34.8 - 46.1 % 02/15/2025 5:11 AM CDT [facility] Blood BLOOD SPECIMEN / Unknown Lab Venipuncture / Unknown 02/15/2025 4:58 AM CDT 02/15/2025 5:05 AM CDT Evgeny Inman MD LAB - HEMATOLOGY ORDERABLES Renea álvarez Result Performing Organization Address City/[facility]/ZIP Co de Phone Number [facility] [address] [address] * (ABNORMAL) GLUCOSE - POINT OF CARE (02/14/2025 2:02 PM CDT) Only the most recent of2 resultswithin the time period is included. [facility] Glucose WB/POC 149(H) 70 - 99 mg/dL 02/14/2025 2:19 PM CDT [facility] Specimen Type Arterial/C apillary 02/14/2025 2:19 PM CDT [facility] Blood BLOOD SPECIMEN / Unknown 02/14/2025 2:02 PM CDT 02/14/2025 2:19 PM CDT Evgeny Inman MD LAB - POINT OF CARE ORDERABLES F inal Result Performing Organization Address [facility] Co de Phone Number [facility] [address] [address] * Peripheral Nerve Block (02/14/2025 10:00 AM CDT) Narrative Kamar Jose MD - 02/14/2025 10:00 AM CDT Kamar Jose MD 02/14/2025 10:01 AM Peripheral Nerve Block Procedure: Peripheral Nerve Block Patient Location: Pre-op Preprocedure Section: Indications: at surgeon's request and postop pain management. Pre-anesthetic Checklist: Patient identified, IV Checked, Site examined and clear, Risks and benefits discussed, Surgical consent verified, Monitors and equipment, Time-out performed, Informed consent obtained, Pre-op evaluation done, Questions answered/anesthesia questions answered, Allergies reviewed and Removal hand/wrist jewelry Monitors: BP, Pulse Ox and EKG. Patient Condition: sedated, meaningful contact maintained throughout procedure Patient Position: sitting Patient Sedated? Yes Sedation Type: mild Procedure Section Laterality: left Block Performed: PEC II/ serratus anterior and supraclavicular Prep: Chloraprep and alcohol Strerile Field: gloves, mask, hat/cap and sterile ultrasound sleeve Needle Type: Echogenic insultaed Needle Gauge: 20 Needle Length: 50 mm Needle Depth: 2 cm Catheter? No Ultrasound Guided? Yes Technique: in plane Visualization: Preliminary scan performed, Important anatomical structures identified, Needle tip visualized throughout the procedure, Target identified, No intraneural or intravascular puncture occurred, Ultrasound image in chart, Local visualized surrounding nerve on ultrasound and Hydrodissection utilized Injection was made incrementally with constant monitoring and aspirations every 5 mL's Injection Assessment: Slow fractionated injection Block Agents or Additives used? Yes Block agents used: bupivacaine PF (MARCAINE PF) 0.5 % injection - Infiltration 10 mL - 02/14/2025 10:01:00 AM Procedure Tolerance: tolerated well Assessment: completed Procedure Start Time: 02/14/2025 10:01 AM. Procedure End Time: 02/14/2025 10:01 AM. Procedure Total Time: 0 minutes. Staff Section Anesthesia Provider: Kamar Jose MD, Performed the procedure Sebastian Santillan DO GENERAL ANESTHESIA ORDERABL ES Final Result * Peripheral Nerve Block (02/14/2025 10:00 AM CDT) Narrative Kamar Jose MD - 02/14/2025 10:00 AM CDT Kamar Jose MD 02/14/2025 10:00 AM Peripheral Nerve Block Procedure: Peripheral Nerve Block Patient Location: Pre-op Preprocedure Section: Indications: at surgeon's request and postop pain management. Pre-anesthetic Checklist: Patient identified, IV Checked, Site examined and clear, Risks and benefits discussed, Surgical consent verified, Monitors and equipment, Time-out performed, Informed consent obtained, Pre-op evaluation done, Questions answered/anesthesia questions answered, Allergies reviewed and Removal hand/wrist jewelry Monitors: BP, Pulse Ox and EKG. Patient Condition: sedated, meaningful contact maintained throughout procedure Patient Position: sitting Patient Sedated? Yes Sedation Type: mild Sedation Agents: fentaNYL (PF) (SUBLIMAZE) injection - Intravenous 50 mcg - 02/14/2025 10:00:00 AM midazolam (VERSED) injection - Intravenous 1 mg - 02/14/2025 10:00:00 AM Procedure Section Laterality: left Block Performed: interscalene and PEC II/ serratus anterior Prep: Chloraprep and alcohol Strerile Field: gloves, mask, hat/cap and sterile ultrasound sleeve Needle Type: Echogenic insultaed Needle Gauge: 20 Needle Length: 50 mm Needle Depth: 2 cm Catheter? No Ultrasound Guided? Yes Technique: in plane Visualization: Preliminary scan performed, Important anatomical structures identified, Needle tip visualized throughout the procedure, Target identified, No intraneural or intravascular puncture occurred, Ultrasound image in chart, Local visualized surrounding nerve on ultrasound and Hydrodissection utilized Injection was made incrementally with constant monitoring and aspirations every 5 mL's Injection Assessment: Slow fractionated injection Block Agents or Additives used? Yes Block agents used: bupivacaine PF (MARCAINE PF) 0.5 % injection - Infiltration 15 mL - 02/14/2025 10:00:00 AM bupivacaine liposome (EXPAREL) 1.3 % injection - Infiltration 10 mL - 02/14/2025 10:00:00 AM Procedure Tolerance: tolerated well Assessment: completed Procedure Start Time: 02/14/2025 10:00 AM. Procedure End Time: 02/14/2025 10:00 AM. Procedure Total Time: 0 minutes. Staff Section Anesthesia Provider: Kamar Jose MD, Performed the procedure us Sebastian Santillan DO GENERAL ANESTHESIA ORDERABL ES Final Result * EKG 12-Lead (02/14/2025 8:26 AM CDT) Ventricular Rate 52 BPM [facility] Atrial Rate 52 BPM [facility] P-R Interval 188 ms [facility] QRS Duration ms 118 ms [facility] Q-T Interval ms 502 ms [facility] QTC Calculation (Bezet) 466 ms [facility] Calculated P [place] 54 degrees [facility] Calculated R [place] -17 degrees [facility] Calculated T [place] 46 degrees [facility] Interpretation EKG Sinus bradycardia Left ventricular hypertrophy with QRS widening ( R in aVL , Chip product ) Cannot rule out Septal infarct , age undetermined Abnormal ECG No previous ECGs available Confirmed by ARY DEXTER MD ([id number]) on 02/14/2025 7:46:27 PM [facility] 02/14/2025 8:26 AM CDT 02/14/2025 7:46 PM CDT us Evgeny Inman MD ECG ORDERABLES Edited Result - Final [facility] * CT Custom Shoulder Lt Replacement (02/03/2025 10:56 AM CDT) Anatomical Region Laterality Modality Upper Extremity Computed Tomogra phy 02/03/2025 11:0 6 AM CDT Impressions 02/03/2025 11:47 AM CDT IMPRESSION: 1.Severe glenohumeral osteoarthritis with large osteophyte formations. 2.Mild acromioclavicular osteoarthritis. 3.No acute fracture or dislocation. The report was drafted by Lady Tidwell MD (residential sales executive) 02/03/2025 11:06 AM. > Dictated by Clinic Charge Nurse I, Victor M Villeda MD have personally reviewed and interpreted this examination/study. > Interpreting Provider: Victor M Villeda MD on 02/03/2025 11:47 AM Narrative 02/03/2025 11:47 AM CDT PROCEDURE: CT CUSTOM SHOULDER LT REPLACEMENT DATE/TIME OF EXAM: 02/03/2025 10:56 AM CLINICAL INFORMATION: None relevant/not provided if blank. Indication: M25.512: Left shoulder pain, unspecified chronicity Additional History: COMPARISON: Left shoulder radiograph from 01/25/2025. TECHNIQUE: Axial CT images of the left shoulder. Coronal and sagittal reformatted images were submitted. FINDINGS: No acute fracture or dislocation. The humeral head is mildly subluxed posteriorly relative to the glenoid. There is severe glenohumeral osteoarthritis with joint space narrowing resulting in near vhqu-sz-vcso contact, erosive remodeling of the posterior articular surface of the glenoid resulting in mild retroversion. The humeral head is also mildly subluxed inferiorly relative to the glenoid. There is a 1.9 cm ossific fragment in the soft tissues anterior to the subscapularis muscle/tendon, likely a loose body within a subscapularis recess of the glenohumeral joint. There is large osteophyte formation broadly arising from the inferior articular surface of the humeral head. There is also small to moderate size osteophyte formation arising from posterior surface of the anterior superior aspect of the glenoid. There is mild acromioclavicular osteoarthritis. The muscle bulk appears normal. There are atherosclerotic calcifications within the aortic arch. Procedure Note Victor M Villeda MD - 02/03/2025 PROCEDURE: CT CUSTOM SHOULDER LT REPLACEMENT DATE/TIME OF EXAM: 02/03/2025 10:56 AM CLINICAL INFORMATION: None relevant/not provided if blank. Indication: M25.512: Left shoulder pain, unspecified chronicity Additional History: COMPARISON: Left shoulder radiograph from 01/25/2025. TECHNIQUE: Axial CT images of the left shoulder. Coronal and sagittal reformatted images were submitted. FINDINGS: No acute fracture or dislocation. The humeral head is mildly subluxed posteriorly relative to the glenoid. There is severe glenohumeral osteoarthritis with joint space narrowing resulting in near ymyx-cz-chni contact, erosive remodeling of the posterior articular surface of the glenoid resulting in mild retroversion. The humeral head is also mildly subluxed inferiorly relative to the glenoid. There is a 1.9 cm ossific fragment in the soft tissues anterior to the subscapularismuscle/tendon, likely a loose body within a subscapularis recess of the glenohumeral joint. There is large osteophyte formation broadly arising from the inferior articular surface of the humeral head. There is also small to moderate size osteophyte formation arising from posterior surface of the anterior superior aspect of the glenoid. There is mild acromioclavicular osteoarthritis. The muscle bulk appears normal. There are atherosclerotic calcifications within the aortic arch. IMPRESSION: 1.Severe glenohumeral osteoarthritis with large osteophyte formations. 2.Mild acromioclavicular osteoarthritis. 3.No acute fracture or dislocation. The report was drafted by Lady Tidwell MD (residential sales executive) 02/03/2025 11:06 AM. > Dictated by Clinic Charge Nurse I, Victor M Villeda MD have personally reviewed and interpreted this examination/study. > Interpreting Provider: Victor M Villeda MD on 02/03/2025 11:47 AM Evgeny Inman MD CT ORDERABLES Final Result * HEMOGLOBIN A1C (01/25/2025 3:26 PM CDT) Hemoglobin A1c 5.3 <=5.6 % 01/26/2025 8:40 AM CDT [facility] Estimated Average Glucose 105 mg/dL 01/26/2025 8:40 AM CDT [facility] Comment: HbA1c Interpretation: Normal : < 5.7% Pre-diabetes: 5.7-6.4% Diabetes: Equal to or greater than 6.5% Test results diagnostic of diabetes should be repeated for confirmation. Treatment target values recommended by ADA and other clinical organizations should be used to evaluate metabolic control in patients. Reference: [place] [employer] Association, Standards of Care in Diabetes -2020 In patients 70 years and older consider HbA1c target range of 7.0-7.5% (Reference: Shaquille Goodson et al. JAMDA. 2012) The Sebia assay for the measurement of HbA1c is a National Glycohemoglobin Standardization Program (NGSP) certified method. Blood BLOOD SPECIMEN / Unknown Lab Venipuncture / Unknown 01/25/2025 3:26 PM CDT 01/25/2025 3:37 PM CDT us Evgeny Inman MD LAB - CHEMISTRY ORDERABLES Final Result Performing Organization Address City/[facility]/ZIP Co de Phone Number [address] [address], [facility] [phone] * PTT (01/25/2025 3:26 PM CDT) APTT 27.0 23.0 - 38.4 Seconds 01/25/2025 4:56 PM CDT [facility] Comment:Suggested therapeuti c range for full dose I.V. unfractionated heparin therapy for venous thromboembolism is 71 to 109 seconds. Blood BLOOD SPECIMEN / Unknown Lab Venipuncture / Unknown 01/25/2025 3:26 PM CDT 01/25/2025 3:32 PM CDT Evgeny Inman MD LAB - COAGULATION ORDERABLES Fin al Result [address] [place] [address], [facility] [phone] * PT-INR (01/25/2025 3:26 PM CDT) [facility] PT 12.5 12.1 - 14.8 Seconds 01/25/2025 4:56 PM CDT [facility] INR 1.0 See Comment 01/25/2025 4:56 PM T [facility] Comment:The suggested therap eutic range for standard coumadin (warfarin) therapy is an INR of 2.0-3.0. For high-risk patients (Mechanical Mitral Valve Prosthesis, etc.), the suggested prophylactic therapeutic range is an INR of 2.5-3.5. Blood BLOOD SPECIMEN / Unknown Lab Venipuncture / Unknown 01/25/2025 3:26 PM CDT 01/25/2025 3:32 PM CDT Evgeny Inman MD LAB - COAGULATION ORDERABLES Fin al Result [address] [address], [facility] [phone] * (ABNORMAL) CBC WITH DIFFERENTIAL (01/25/2025 3:26 PM CDT) [facility] WBC 11.0(H) 4.0 - 10.7 x10E9/L 01/25/2025 4:02 PM [facility] RBC Count 4.35 3.90 - 5.20 x10E12/L 01/25/2025 4:02 PM [facility] Hemoglobin 13.3 11.9 - 15.8 g/dL 01/25/2025 4:02 PM [facility] Hematocrit 40.9 34.8 - 46.1 % 01/25/2025 4:02 PM [facility] MCV 94.0 80.0 - 98.0 fL 01/25/2025 4:02 PM [facility] MCH 30.6 26.7 - 33.6 pg 01/25/2025 4:02 PM [facility] MCHC 32.5 31.7 - 36.3 g/dL 01/25/2025 4:02 PM [facility] RDW-CV 12.8 11.3 - 14.8 % 01/25/2025 4:02 PM [facility] Platelet Count 307 150 - 420 x10E9/L 01/25/2025 4:02 PM [facility] MPV 9.9 7.8 - 11.4 fL 01/25/2025 4:02 PM [facility] Neutrophil % 64.8 41.0 - 74.0 % 01/25/2025 4:02 PM [facility] Lymphocyte % 24.4 17.0 - 47.0 % 01/25/2025 4:02 PM [facility] Monocyte % 6.9 3.0 - 11.0 % 01/25/2025 4:02 PM [facility] Eosinophil % 3.1 0.0 - 7.0 % 01/25/2025 4:02 PM [facility] Basophil % 0.4 0.0 - 1.6 % 01/25/2025 4:02 PM [facility] Immature Granulocytes % 0.4 0.0 - 1.0 % 01/25/2025 4:02 PM [facility] Neutrophil Absolute 7.14 1.60 - 7.50 x10E9/L 01/25/2025 4:02 PM [facility] Lymphocyte Absolute 2.69 1.00 - 4.40 x10E9/L 01/25/2025 4:02 PM [facility] Monocyte Absolute 0.76 0.15 - 1.00 x10E9/L 01/25/2025 4:02 PM [facility] Eosinophil Absolute 0.34 0.00 - 0.60 x10E9/L 01/25/2025 4:02 PM [facility] Basophil Absolute 0.04 0.00 - 0.13 x10E9/L 01/25/2025 4:02 PM [facility] Blood BLOOD SPECIMEN / Unknown Lab Venipuncture / Unknown 01/25/2025 3:26 PM CDT 01/25/2025 3:37 PM CDT us Evgeny Inman MD LAB - HEMATOLOGY ORDERABLES Renea preeti Result [facility] [address] [place] [address], [facility] [phone] * (ABNORMAL) COMPREHENSIVE METABOLIC PANEL (01/25/2025 3:26 PM CDT) BUN 11 7 - 26 mg/dL 01/25/2025 4:28 PM [facility] Creatinine 0.88 0.56 - 0.96 mg/dL 01/25/2025 4:28 PM [facility] Sodium 140 136 - 145 mmol/L 01/25/2025 4:28 PM [facility] Potassium 4.2 3.5 - 4.5 mmol/L 01/25/2025 4:28 PM [facility] Chloride 107 98 - 107 mmol/L 01/25/2025 4:28 PM [facility] CO2 24 22 - 29 mmol/L 01/25/2025 4:28 PM [facility] Glucose 88 70 - 99 mg/dL 01/25/2025 4:28 PM [facility] Calcium 9.3 8.4 - 10.2 mg/dL 01/25/2025 4:28 PM [facility] Protein Total 6.8 6.0 - 8.3 g/dL 01/25/2025 4:28 PM [facility] Albumin 4.2 3.4 - 5.0 g/dL 01/25/2025 4:28 PM [facility] Bilirubin Total 0.2 0.2 - 1.2 mg/dL 01/25/2025 4:28 PM [facility] Alkaline Phosphatase 71 40 - 150 U/L 01/25/2025 4:28 PM [facility] ALT 22 5 - 55 U/L 01/25/2025 4:28 PM [facility] AST 17 5 - 34 U/L 01/25/2025 4:28 PM [facility] Anion Gap 9 6 - 16 01/25/2025 4:28 PM [facility] BUN/Creatinine Ratio 13 7 - 23 01/25/2025 4:28 PM CDT [facility] Osmolality Calculated 289 275 - 295 mOsm/kg 01/25/2025 4:28 PM CDT [facility] Albumin/Globulin Ratio 1.6 1.1 - 2.3 01/25/2025 4:28 PM CDT [facility] eGFR by CKD-EPI 68(L) >=90 mL/min/1.7 3 m2 01/25/2025 4:28 PM CDT [facility] Comment:Estimated Glomerular Filtration Rate (eGFR) calculated using the CKD-EPI Creatinine Equation (2020), per the National Kidney Foundation and [place] Society of Nephrology recommendations. Blood BLOOD SPECIMEN / Unknown Lab Venipuncture / Unknown 01/25/2025 3:26 PM CDT 01/25/2025 3:37 PM CDT Evgeny Inman MD LAB - CHEMISTRY ORDERABLES Final Result [facility] [address] [place] [address], [facility] [phone] * XR Chest 2Vw (01/25/2025 3:10 PM CDT) Anatomical Region Laterality Modality Chest Digital Radiogra phy 01/25/2025 4:43 PM CDT Impressions 01/25/2025 4:46 PM CDT IMPRESSION: No acute cardiopulmonary abnormalities. > Interpreting Provider: Marcelino Kang MD on 01/25/2025 4:46 PM Narrative 01/25/2025 4:46 PM CDT PROCEDURE: XR CHEST 2VW DATE/TIME OF EXAM: 01/25/2025 3:11 PM CLINICAL INFORMATION: None relevant/not provided if blank. 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 FINDINGS: Frontal and lateral views of the chest demonstrate a normal sized heart and pulmonary vasculature. No focal consolidation, pleural effusion or pneumothorax. Degenerative changes are seen in bilateral shoulders. Procedure Note Marcelino Kang MD - 01/25/2025 PROCEDURE: XR CHEST 2VW DATE/TIME OF EXAM: 01/25/2025 3:11 PM CLINICAL INFORMATION: None relevant/not provided if blank. 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 FINDINGS: Frontal and lateral views of the chest demonstrate a normal sized heartand pulmonary vasculature. No focal consolidation, pleural effusion or pneumothorax. Degenerative changes are seen in bilateral shoulders. IMPRESSION: No acute cardiopulmonary abnormalities. > Interpreting Provider: Marcelino Kang MD on 01/25/2025 4:46 PM Evgeny Inman MD DIAGNOSTIC IMAGING ORDERABLES Fi nal Result from Last 3 Months Insurance [employer] MEDICARE ADV MEDICARE Advance Directives * Full Code (Latest Code Status on File) Date Activated Date Inactivated Comments 02/14/2025 5:26 PM 02/15/2025 5:29 PM Care Teams Anthropology Department Chair Relationship Specialty Start Date End Date Godwin Ku MD [address] [place] [address] PCP - General Internal Medicine 01/25/25
[2025-04-08 11:05] LABS: Hematocrit 38.7 % (35.0-42.0); Hemoglobin 12.1 g/dL (11.7-13.8); Immature Granulocyte Percent A 0.4 % (0.0-0.0); Lymphocytes Absolute Auto 2.03 K/mm3 (1.10-4.50); Mean Corpuscular HGB Conc 31.3 g/dL (32-36); Mean Corpuscular Hemoglobin 30.6 pg (27.0-31.0); Mean Corpuscular Volume 97.7 fL (78.0-102.0); Nucleated Red Blood Cells Absolute Auto 0.00 K/mm3 (0.00-0.00); Nucleated Red Blood Cells Perc 0.0 % (0-0.0); Platelet Count Result 356 K/mm3 (150-420); Red Blood Count 3.96 M/mm3 (4.20-5.40); White Blood Count 7.1 K/mm3 (4.8-10.8)
[2025-04-08 11:06] LABS: Add Urine Microscopic? YES; Appearance Urine Clear (Clear); Glucose Urine UA Negative (Negative); Leukocyte Esterase Ur Trace (Negative); Nitrate Urine Negative (Negative); Specific Grav Ur 1.010 (1.010-1.020)
[2025-04-08 11:49] LABS: Alanine Aminotransferase 22 U/L (6-35); Albumin Level 4.0 g/dL (3.5-5.1); Alkaline Phosphatase 72 U/L (38-126); Anion Gap 6 mmol/L (4-12); Aspartate Amino Transferase 26 U/L (14-36); Bilirubin,Total 0.3 mg/dL (0.2-1.3); Blood Urea Nitrogen 13 mg/dL (7-17); Calcium 9.3 mg/dL (8.4-10.2); Carbon Dioxide 30 mmol/L (22-30); Chloride 105 mmol/L (98-107); Cholesterol 138 mg/dL (0-200); Creatine Kinase 50 U/L (30-135); Estimated Glomerular Filt Rate 56; Glucose 80 mg/dL (65-110); HDL Direct 72 mg/dL; Osmolality Calculated 291 mOsm/kg (285-295); Potassium 4.7 mmol/L (3.4-5.0); Sodium 141 mmol/L (137-145); Total Protein 6.6 g/dL (6.3-8.2); Triglycerides 90 mg/dL (<150)
[2025-04-08 11:50] LABS: Hemoglobin A1C 5.2 % (<5.7)
== END 2025-04-08 10:50 | disposition home or self-care (01) ==
LOC: CHSLAB 10:51
PROVIDERS: PCP Internal Medicine; Visit Provider Internal Medicine
DX: E78.2 Mixed hyperlipidemia (principal); I10 Essential (primary) hypertension; E11.9 Type 2 diabetes mellitus without complications; I25.10 Atherosclerotic heart disease of native coronary artery without angina pectoris; N39.0 Urinary tract infection, site not specified; M81.0 Age-related osteoporosis without current pathological fracture
CPT/HCPCS: 36415; 80053; 80061; 81001; 82306; 82550; 83036; 85025; 87086